=== PATIENT | male | born 1960 | race Caucasian/White ===

== ENCOUNTER 2016-09-03 16:56 | Emergency (ER) | payer OTHER ==
[2016-09-03] MEDS ORDERED: SODIUM CHLORIDE 0.9% 1,000 ML IV STA (18:25)
--- NOTE | 2016-09-03 18:30 | ED ---
Dizziness HPI - General Chief Complaint: Dizziness Stated Complaint: Dizziness/Vomiting Time Seen by Provider: 09/03/16 17:34 Source: patient, RN notes reviewed Mode of arrival: ambulatory Limitations: no limitations - History of Present Illness Initial Comments: Patient is a 56-year-old male presents to the emergency room for evaluation of dizziness. Patient states for the past week he's been having random episodes of dizziness. Patient states out of no where he will begin feeling very dizzy and feels like the room spinning around him. Patient states the episode will last about 5-6 minutes. Patient states he will become very diaphoretic and then vomit. Patient states after he vomits his symptoms subside. Patient states he's had about 4 episodes throughout the week. Patient states he had one episode earlier today. Patient denies chest pain, shortness of breath, headache. Patient denies ear pain or changes in hearing. Patient denies changes in vision. Patient denies history of diabetes. Patient denies taking any medications. Patient does admit he has a history of hepatitis C from alcohol abuse. Patient states he hasn't had alcohol in 4 years. Patient does admit that he smokes daily and is currently trying to quit. Patient denies any current dizziness. Patient denies any current symptoms. - Related Data Home Medications Medication Instructions Recorded Confirmed Ibuprofen [Motrin] 800 mg PO DAILY PRN 09/03/16 09/03/16 Joint Supplement Unknown 1 tab PO TID 09/03/16 09/03/16 Allergies Allergy/AdvReac Type Severity Reaction Status Date / Time No Known Allergies Allergy Verified 09/03/16 19:04 Review of Systems ROS Statement: Those systems with pertinent positive or pertinent negative responses have been documented in the HPI. ROS Other: All systems not noted in ROS Statement are negative. 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 Limitations: no limitations General appearance: alert, in no apparent distress Head exam: Present: atraumatic, normocephalic, normal inspection Eye exam: Present: normal appearance, PERRL, EOMI Pupils: Present: normal accommodation ENT exam: Present: normal exam, mucous membranes moist, TM's normal bilaterally , normal external ear exam Neck exam: Present: normal inspection Respiratory exam: Present: normal lung sounds bilaterally. Absent: respiratory distress Cardiovascular Exam: Present: regular rate, normal rhythm, normal heart sounds Extremities exam: Present: normal inspection Back exam: Present: normal inspection Neurological exam: Present: alert, oriented X3, CN II-XII intact, normal gait Psychiatric exam: Present: normal affect, normal mood Skin exam: Present: warm, dry, intact, normal color. Absent: rash Course Vital Signs 09/03/16 09/03/16 09/03/16 17:18 18:21 18:59 Temperature 97.8 F 97.7 F Pulse Rate 70 62 Pulse Rate [ 61 Sitting] Pulse Rate [ 68 Standing] Pulse Rate [ 59 L Supine] Respiratory 18 18 Rate Blood Pressure 120/90 165/80 Blood Pressure 146/97 [Sitting] Blood Pressure 154/84 [Standing] Blood Pressure 156/88 [Supine] O2 Sat by Pulse 98 98 Oximetry 09/03/16 09/03/16 19:48 20:15 Temperature 98.1 F 98.0 F Pulse Rate 64 65 Pulse Rate [ Sitting] Pulse Rate [ Standing] Pulse Rate [ Supine] Respiratory 16 18 Rate Blood Pressure 163/93 155/87 Blood Pressure [Sitting] Blood Pressure [Standing] Blood Pressure [Supine] O2 Sat by Pulse 96 95 Oximetry EKG Findings - EKG Comments: EKG Findings:: Sinus bradycardia, ventricular rate 58 bpm, MN interval 178 ms, QRS duration 80 ms, QT/QTC 406/398 ms Medical Decision Making - Medical Decision Making Patient is a 56-year-old male presents emergency room for evaluation of dizziness. Patient states been having episodes of dizziness that the week. Patient had no episodes while he was here. Patient is asymptomatic. Patient's EKG significant for sinus bradycardia. Patient's dizziness could be from symptomatic bradycardia. Advised patient to not operate any heavy machinery or strenuous physical activity. Advised patient to follow-up with his primary care provider for further evaluation. Patient states he understands everything that was discussed with him. Return parameters discussed. Case discussed with Dr. Gonzalez. - Lab Data Result diagrams: 09/03/16 18:55 09/03/16 18:55 Lab Results 09/03/16 09/03/16 09/03/16 Range/Units 18:55 18:55 18:55 WBC 7.5 (3.8-10.6) k/uL RBC 4.71 (4.30-5.90) m/uL Hgb 15.2 (13.0-17.5) gm/dL Hct 45.4 (39.0-53.0) % MCV 96.5 (80.0-100.0) fL MCH 32.3 (25.0-35.0) pg MCHC 33.5 (31.0-37.0) g/dL RDW 12.9 (11.5-15.5) % Plt Count 217 (150-450) k/uL Neutrophils % 52 % Lymphocytes % 35 % Monocytes % 7 % Eosinophils % 2 % Basophils % 1 % Neutrophils # 3.9 (1.3-7.7) k/uL Lymphocytes # 2.7 (1.0-4.8) k/uL Monocytes # 0.5 (0-1.0) k/uL Eosinophils # 0.1 (0-0.7) k/uL Basophils # 0.1 (0-0.2) k/uL PT (9.0-12.0) sec INR (<1.1) Sodium 139 (137-145) mmol/L Potassium 4.4 (3.5-5.1) mmol/L Chloride 105 (98-107) mmol/L Carbon Dioxide 26 (22-30) mmol/L Anion Gap 8 mmol/L BUN 17 (9-20) mg/dL Creatinine 1.00 (0.66-1.25) mg/dL Est GFR (MDRD) Af Amer >60 (>60 ml/min/1.73 sqM) Est GFR (MDRD) Non-Af >60 (>60 ml/min/1.73 sqM) Glucose 91 (74-99) mg/dL POC Glucose (mg/dL) (75-99) mg/dL POC Glu [employer]uing [employer] Dean ID Calcium 9.4 (8.4-10.2) mg/dL Total Bilirubin 0.6 (0.2-1.3) mg/dL AST 25 (17-59) U/L ALT 30 (21-72) U/L Alkaline Phosphatase 54 (38-126) U/L Total Creatine Kinase 133 (55-170) U/L CK-MB (CK-2) 1.0 (0.0-2.4) ng/mL CK-MB (CK-2) Rel Index 0.8 Troponin I <0.012 (0.000-0.034) ng/mL Total Protein 7.7 (6.3-8.2) g/dL Albumin 4.3 (3.5-5.0) g/dL 09/03/16 09/03/16 Range/Units 18:55 18:55 WBC (3.8-10.6) k/uL RBC (4.30-5.90) m/uL Hgb (13.0-17.5) gm/dL Hct (39.0-53.0) % MCV (80.0-100.0) fL MCH (25.0-35.0) pg MCHC (31.0-37.0) g/dL RDW (11.5-15.5) % Plt Count (150-450) k/uL Neutrophils % % Lymphocytes % % Monocytes % % Eosinophils % % Basophils % % Neutrophils # (1.3-7.7) k/uL Lymphocytes # (1.0-4.8) k/uL Monocytes # (0-1.0) k/uL Eosinophils # (0-0.7) k/uL Basophils # (0-0.2) k/uL PT 10.9 (9.0-12.0) sec INR 1.1 (<1.1) Sodium (137-145) mmol/L Potassium (3.5-5.1) mmol/L Chloride (98-107) mmol/L Carbon Dioxide (22-30) mmol/L Anion Gap mmol/L BUN (9-20) mg/dL Creatinine (0.66-1.25) mg/dL Est GFR (MDRD) Af Amer (>60 ml/min/1.73 sqM) Est GFR (MDRD) Non-Af (>60 ml/min/1.73 sqM) Glucose (74-99) mg/dL POC Glucose (mg/dL) 89 (75-99) mg/dL POC Glu [employer] Dean ID Kristy Tamayo Calcium (8.4-10.2) mg/dL Total Bilirubin (0.2-1.3) mg/dL AST (17-59) U/L ALT (21-72) U/L Alkaline Phosphatase (38-126) U/L Total Creatine Kinase (55-170) U/L CK-MB (CK-2) (0.0-2.4) ng/mL CK-MB (CK-2) Rel Index Troponin I (0.000-0.034) ng/mL Total Protein (6.3-8.2) g/dL Albumin (3.5-5.0) g/dL Disposition Clinical Impression: Dizziness Disposition: HOME SELF-CARE Condition: Good Instructions: Dizziness (ED) Additional Instructions: Please follow up with primary care provider for further evaluation in 24-48 hours. No heavy lifting or strenuous physical activity until further evaluated. If any new symptom arises or symptoms worsen, return to ER as soon as possible. Referrals: Cristopher Munoz MD [Primary Care Provider] - 1-2 days Time of Disposition: 20:03
[2016-09-03 19:00] LABS: Glucose,Whole Blood 89 mg/dL (75-99)
[2016-09-03 19:09] LABS: Basophils # (A) 0.1 k/uL (0-0.2); Basophils % (A) 1 %; CH 32.8; CHCM 34.2; Eosinophils # (A) 0.1 k/uL (0-0.7); Eosinophils % (A) 2 %; HCT 45.4 % (39.0-53.0); HDW 2.56; HGB 15.2 gm/dL (13.0-17.5); Luc # (Auto) 0.25; Luc % (Auto) 3; Lymphocytes # (A) 2.7 k/uL (1.0-4.8); Lymphocytes % (A) 35 %; MCH 32.3 pg (25.0-35.0); MCHC 33.5 g/dL (31.0-37.0); MCV 96.5 fL (80.0-100.0); Mean Platelet Volume 7.2; Monocytes # (A) 0.5 k/uL (0-1.0); Monocytes % (A) 7 %; Neutrophils # (A) 3.9 k/uL (1.3-7.7); Neutrophils % (A) 52 %; RBC 4.71 m/uL (4.30-5.90); RDW 12.9 % (11.5-15.5); WBC 7.5 k/uL (3.8-10.6); WBC (Perox) 7.38
[2016-09-03 19:14] LABS: INR 1.1 (<1.1); Prothrombin Time 10.9 sec (9.0-12.0)
[2016-09-03 19:22] LABS: ALT 30 U/L (21-72); AST 25 U/L (17-59); Alkaline Phosphatase 54 U/L (38-126); Anion Gap 8 mmol/L; Blood Urea Nitrogen 17 mg/dL (9-20); Calcium 9.4 mg/dL (8.4-10.2); Carbon Dioxide 26 mmol/L (22-30); Chloride 105 mmol/L (98-107); Glucose 91 mg/dL (74-99); Non-African American GFR(MDRD) >60 (>60 ml/min/1.73 sqM); Potassium 4.4 mmol/L (3.5-5.1); Sodium 139 mmol/L (137-145); Total Bilirubin 0.6 mg/dL (0.2-1.3); Total Protein 7.7 g/dL (6.3-8.2)
[2016-09-03 19:38] LABS: Creatine Kinase 133 U/L (55-170)
[2016-09-03 19:51] LABS: Troponin I <0.012 ng/mL (0.000-0.034)
[2016-09-03 20:17] VITALS: BP 155/87; PULSE 65; RESP 18; TEMP 98
== END 2016-09-03 20:16 | disposition home or self-care (01) ==
LOC: EC 16:56
DX: R42 Dizziness and giddiness (principal); F17.200 Nicotine dependence, unspecified, uncomplicated
CPT/HCPCS: 36415; 80053; 82550; 82553; 84484; 85025; 85610; 93005; 96360; 99284

== ENCOUNTER → 2016-10-03 | Outpatient (CLI) | payer OTHER ==
--- NOTE | 2016-10-03 10:58 | CT ---
EXAMINATION TYPE: CT brain wo con DATE OF EXAM: 10/03/2016 HISTORY: Dizziness and seizures CT DLP: 1121 mGycm. Automated Exposure Control for Dose Reduction was Utilized. TECHNIQUE: CT scan of the head is performed without contrast. COMPARISON: None. FINDINGS: There is no acute intracranial hemorrhage or midline shift identified. Ventricles and sul ci are felt within normal limits. Garcia-white matter differentiation is maintained. The globes are int act and the visualized sinuses are clear. Soft tissue density bilateral external auditory canals is felt to reflect cerumen. Vascular calcification distal internal carotid arteries is present bilatera lly. IMPRESSION: No acute intracranial hemorrhage or midline shift. Unremarkable study.
--- NOTE | 2016-10-07 08:03 | EEG ---
DATE OF SERVICE: 10/03/2016 REASON FOR TESTING: Dizziness with a remote history of seizures. AGE: 56Y CURRENT ANTIEPILEPTIC MEDICATIONS: None. DESCRIPTION OF THE PROCEDURE: This EEG was performed using a 21-channel digital electroencephalograph, following the international 10 to 20 system. DESCRIPTION OF THE RECORDING: From the beginning of the tracing, and with the patient's eyes closed, the background rhythm was mostly consisting of 9 Hz alpha frequency in the posterior occipital leads. No obvious asymmetry is seen. Photic stimulation was performed with a minimal driving response seen. No pathological waves were elicited. Hyperventilation was not performed. Occasional movement artifacts and rare lead artifacts are seen. No epileptiform discharges were seen. The patient remains awake throughout the tracing. His EKG lead showed a regular rate and rhythm. INTERPRETATION: This awake EEG can be considered within normal limits. There was no asymmetry seen. No epileptiform discharges were noticed. The absence of epileptiform discharges does not rule out the diagnosis of epilepsy, therefore, clinical correlation is recommended. Thank you, Dr. Munoz for allowing me to participate in the care of your patient. If you have any questions, please feel free to contact me.
== END | disposition home or self-care (01) ==
LOC: NEUROMAIN 09:30
PROVIDERS: ATTEND Family Medicine
DX: R42 Dizziness and giddiness (principal); R56.9 Unspecified convulsions
CPT/HCPCS: 70450; 95819

== ENCOUNTER 2016-12-31 20:21 | Emergency (ER) | payer OTHER ==
--- NOTE | 2016-12-31 20:30 | ED ---
Lower Extremity Injury HPI - General Stated Complaint: ankle injury Time Seen by Provider: 12/31/16 20:26 Source: patient, RN notes reviewed Mode of arrival: wheelchair Limitations: no limitations - History of Present Illness Initial Comments: This a 56-year-old male presents emergency Department chief complaint left ankle injury. Patient states his walking stepped in a hole and twisted his ankle. Patient states she has moderate amount of swelling to the lateral portion of his ankle. He states is unable bear weight secondary to pain. Denies any proximal tib-fib pain or foot tenderness. He states he does have an orthopedic doctor with [facility]. He's had no prior left ankle injuries. Denies any paresthesias. Denies any other muscle skeletal injury no head injury no LOC. - Related Data Home Medications Medication Instructions Recorded Confirmed Ibuprofen [Motrin] 800 mg PO DAILY PRN 09/03/16 09/03/16 Joint Supplement Unknown 1 tab PO TID 09/03/16 09/03/16 Previous Rx's Medication Instructions Recorded Hydrocodone/Acetaminophen [[place] 1 tab PO Q6HR PRN #20 tab 12/31/16 5-325] Allergies Allergy/AdvReac Type Severity Reaction Status Date / Time No Known Allergies Allergy Verified 09/03/16 19:04 Review of Systems ROS Statement: Those systems with pertinent positive or pertinent negative responses have been documented in the HPI. ROS Other: All systems not noted in ROS Statement are negative. 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 Absent: respiratory distress, wheezes, rales, rhonchi, stridor Cardiovascular Exam: Present: regular rate, normal rhythm, normal heart sounds. Absent: systolic murmur, diastolic murmur, rubs, gallop, clicks Extremities exam: Present: other (Left ankle there is moderate to large amount of swelling noted to the lateral malleolus with severe tenderness palpation there is minimal medial malleolus tenderness there is no proximal tib-fib tenderness there is no tenderness to the left foot foot is neurovascular intact with cap refill less than 2 seconds.) Course Vital Signs 12/31/16 20:28 Temperature 98.6 F Pulse Rate 92 Respiratory 18 Rate Blood Pressure 143/92 O2 Sat by Pulse 98 Oximetry Procedures - Orthopedic Splinting/Casting Injury #1 Side: left Lower Extremity Injury Location: ankle Lower Extremity Immobilizer: posterior splint (Short leg neurovascular intact before and after procedure) Other Orthopedic Equipment: crutches Medical Decision Making - Medical Decision Making 56-year-old male presented for left ankle injury. There is a possible avulsion fracture. Patient is swollen and tender and which treated as fracture at this time. Patient was splinted and given prescription for crutches facial follow- up with orthopedics. Disposition Clinical Impression: Closed left ankle fracture Disposition: HOME SELF-CARE Condition: Stable Instructions: Ankle Fracture (ED) Additional Instructions: Please return to the Emergency Department if symptoms worsen or any other concerns. Prescriptions: Hydrocodone/Acetaminophen [[place] 5-325] 1 tab PO Q6HR PRN #20 tab PRN Reason: Pain Referrals: Cristopher Munoz MD [Primary Care Provider] - 1-2 days Bruce Kevin MD [STAFF PHYSICIAN] - 1-2 days Time of Disposition: 20:56
[2016-12-31 20:32] VITALS: BP 143/92; PULSE 92; RESP 18; TEMP 98.6
--- NOTE | 2016-12-31 20:47 | XR ---
EXAMINATION TYPE: XR ankle complete LT DATE OF EXAM: 12/31/2016 COMPARISON: NONE HISTORY: Pain TECHNIQUE: 3 views of the left ankle are submitted for evaluation. FINDINGS: Moderate soft tissue swelling anterior ankle and laterally. Tiny ossific densities adjacent to the medial malleolus and lateral malleolar tips could reflect avulsion fractures. On the lateral projection there are well-corticated ossific densities adjacent to the talus and navicular. Ankle mor tise is intact. IMPRESSION: 1. Soft tissue swelling is noted. Small ossific densities could reflect avulsion fractures.
[2016-12-31] MEDS ORDERED: HYDROcodone/APAP 5-325MG 1 EACH TAB PO STA (20:55)
== END 2016-12-31 21:06 | disposition home or self-care (01) ==
LOC: EC 20:21
DX: S82.892A Other fracture of left lower leg, initial encounter for closed fracture (principal); M19.90 Unspecified osteoarthritis, unspecified site; F17.200 Nicotine dependence, unspecified, uncomplicated; Z98.890 Other specified postprocedural states; Z79.899 Other long term (current) drug therapy; X50.1XXA Overexertion from prolonged static or awkward postures, initial encounter; Y93.01 Activity, walking, marching and hiking
CPT/HCPCS: 29515; 99283

== ENCOUNTER → 2017-03-10 | Outpatient (CLI) | payer OTHER | LOC: CPPFTMAIN 09:59 | PROVIDERS: ATTEND Family Medicine | DX: J44.1 Chronic obstructive pulmonary disease with (acute) exacerbation (principal); R94.2 Abnormal results of pulmonary function studies | CPT/HCPCS: 94060; 94726; 94729 ==

== ENCOUNTER 2018-02-24 12:39 | Emergency (ER) | payer OTHER ==
[2018-02-24 12:44] VITALS: BP 136/85; PULSE 82; RESP 20; TEMP 98.1
--- NOTE | 2018-02-24 13:03 | ED ---
General Adult HPI - General Chief complaint: Extremity Injury, Lower Stated complaint: Ankle Injury Time Seen by Provider: 02/24/18 12:59 Source: patient, RN notes reviewed Mode of arrival: wheelchair Limitations: no limitations - History of Present Illness Initial comments: Patient's a 57-year-old male presents to the emergency room today with chief complaint of injury to the right ankle that occurred yesterday. He states he was STEPS and slipped hitting his right ankle on one of the metal steps. He states that it was a little sore yesterday but worse today. States having pain with ambulation. Patient is pain to the medial aspect. He denies any other injury or trauma. Patient denies any recent fever, chills, shortness of breath, chest pain, back pain, abdominal pain, nausea or vomiting, numbness or tingling , headaches or visual changes, or any other complaints. - Related Data Home Medications Medication Instructions Recorded Confirmed Clarithromycin [Biaxin] 500 mg PO Q12HR 02/01/17 02/01/17 Codeine Phosphate/Guaifenesin 10 ml PO Q6HR PRN 02/01/17 02/01/17 [Cheratussin AC Syrup] Ibuprofen [Motrin] 600 mg PO Q6HR PRN 02/01/17 02/01/17 Previous Rx's Medication Instructions Recorded Albuterol Inhaler [Ventolin Hfa 1 - 2 puff INHALATION Q6HR PRN #1 02/01/17 Inhaler] inhaler Ipratropium-Albuterol Nebulize 3 ml INHALATION BID #30 neb 02/01/17 [Duoneb 0.5 mg-3 mg/3 ml Soln] predniSONE 50 mg PO DAILY #7 tablet 02/01/17 Allergies Allergy/AdvReac Type Severity Reaction Status Date / Time No Known Allergies Allergy Verified 02/24/18 12:41 Review of Systems ROS Statement: Those systems with pertinent positive or pertinent negative responses have been documented in the HPI. ROS Other: All systems not noted in ROS Statement are negative. 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 Neck: The neck is supple, there is no tenderness or JVD. Musculoskeletal: Patient does have some moderate swelling of the medial aspect. There is mild tenderness over the medial malleolus. No tenderness down to the foot. No tenderness to the right knee. Sensation intact. Dorsal pedal pulse 2+. Neurological: A&O x 3. CN II-XII intact, There are no obvious motor or sensory deficits. Coordination appears grossly intact. Speech is normal. Skin: Skin is warm and dry and no rashes or lesions are noted. Psychiatric: Normal mood and affect. Limitations: no limitations Course Vital Signs 02/24/18 12:41 Temperature 98.1 F Pulse Rate 82 Respiratory 20 Rate Blood Pressure 136/85 O2 Sat by Pulse 97 Oximetry Medical Decision Making - Medical Decision Making X-ray negative for any acute abnormality. Results were discussed with patient. Patient advised continued ice elevate the affected area. Follow-up in 7-10 days for repeat x-rays if symptoms persist. Disposition Clinical Impression: Ankle contusion Disposition: HOME SELF-CARE Condition: Good Instructions: Foot Contusion (ED) Additional Instructions: Please continue to ice elevate the affected area at least 4 times a day for 20 minutes at a time. Please use Tylenol/ibuprofen for pain. Please follow-up in 7-10 days for repeat x-rays if symptoms persist. Please return to emergency room for any other concerns. Is patient prescribed a controlled substance at d/c from ED?: No Referrals: Cristopher Munoz MD [Primary Care Provider] - 1-2 days Time of Disposition: 13:36
--- NOTE | 2018-02-24 13:28 | XR ---
Right ankle HISTORY: Trauma and pain 3 views of the right ankle There is soft tissue swelling present. Bone mineralization may be slightly reduced. Alignment and coco nt space maintained. IMPRESSION: No fracture or dislocation.
== END 2018-02-24 13:43 | disposition home or self-care (01) ==
LOC: EC 12:39
DX: S90.01XA Contusion of right ankle, initial encounter (principal); M19.90 Unspecified osteoarthritis, unspecified site; F17.200 Nicotine dependence, unspecified, uncomplicated; Z98.890 Other specified postprocedural states; W18.43XA Slipping, tripping and stumbling without falling due to stepping from one level to another, initial encounter; W22.8XXA Striking against or struck by other objects, initial encounter
CPT/HCPCS: 99283

== ENCOUNTER → 2018-03-09 | Outpatient (CLI) | payer OTHER ==
--- NOTE | 2018-03-09 10:38 | XR ---
EXAMINATION TYPE: XR ankle complete RT DATE OF EXAM: 03/09/2018 CLINICAL HISTORY: Right ankle pain after injury 2 weeks prior TECHNIQUE: Frontal, lateral and oblique images of the right ankle are obtained. COMPARISON: 02/24/2018 FINDINGS: There is circumferential soft tissue swelling over the right ankle joint, increased from th e prior. There is no acute fracture/dislocation evident in the right ankle. The ankle mortise appear s within normal limits. The overlying soft tissue appears unremarkable. IMPRESSION: Increased right ankle soft tissue swelling without evidence of acute fracture or dislocat ion of the right ankle. Soft tissue injury or occult fracture can be evaluated with MRI.
== END | disposition home or self-care (01) ==
LOC: RADXRMAIN 08:40
PROVIDERS: ATTEND Family Medicine
DX: M79.89 Other specified soft tissue disorders (principal); M25.571 Pain in right ankle and joints of right foot

== ENCOUNTER → 2018-08-20 | Outpatient (CLI) | payer OTHER ==
--- NOTE | 2018-08-20 14:19 | XR ---
EXAMINATION TYPE: XR cervical spine comp DATE OF EXAM: 08/20/2018 CLINICAL HISTORY: pain COMPARISON: NONE TECHNIQUE: Frontal, lateral, oblique, swimmers, and open mouth view of the cervical spine are obtaine d. FINDINGS: The cervical spine is visualized in its entirety from C1 thru the top of T1 level. It is s atisfactory in alignment without evidence of acute fracture or dislocation. The pre-vertebral soft t issue appears within normal limits. Moderate degenerative disc space narrowing at C3-4 through C6-7 w ith ventral and dorsal spondylosis. Mild foraminal encroachment identified at C3-4 and C6-7. The C1-C 2 articulation is unremarkable on the open mouth view. IMPRESSION: No acute fracture or dislocation is seen in the cervical spine.ICD 10 NO FRACTURE, INITI AL EVALUATION
--- NOTE | 2018-08-20 16:17 | XR ---
EXAMINATION TYPE: XR thoracic spine complete DATE OF EXAM: 08/20/2018 CLINICAL HISTORY: pain TECHNIQUE: Frontal, lateral, and swimmer's view of thoracic spine are obtained. COMPARISON: None. FINDINGS: Thoracic spine show satisfactory alignment without evidence of acute fracture or dislocatio n. Vertebral body heights are preserved. Mild scattered degenerative disc space narrowing and minima l spondylosis. Visualized ribs are unremarkable. IMPRESSION: No acute fracture or dislocation is seen in the thoracic spine. ICD 10 NO FRACTURE, INIT IAL EVALUATION
== END | disposition home or self-care (01) ==
LOC: RADXRMAIN 12:42
PROVIDERS: ATTEND Family Medicine
DX: I69.959 Hemiplegia and hemiparesis following unspecified cerebrovascular disease affecting unspecified side (principal); R20.2 Paresthesia of skin
CPT/HCPCS: 72050; 72072

== ENCOUNTER 2018-09-28 13:40 | Emergency (ER) | payer OTHER ==
[2018-09-28] MEDS ORDERED: FAMOTIDINE 20 MG/2 ML VIAL IV STA (14:08)
[2018-09-28] MEDS ORDERED: HYDROmorphone 0.5 MG/0.5 ML SYRINGE IVP STA (14:08)
[2018-09-28] MEDS ORDERED: SODIUM CHLORIDE 0.9% 500 ML 500 ML IV STA (14:08)
[2018-09-28 14:10] VITALS: TEMP 97.7
--- NOTE | 2018-09-28 14:10 | ED ---
General Adult HPI - General Chief complaint: Abdominal Pain Stated complaint: abdominal pain Time Seen by Provider: 09/28/18 13:50 Source: patient, RN notes reviewed Mode of arrival: ambulatory Limitations: no limitations - History of Present Illness Initial comments: 58-year-old male with a past medical history of hepatitis C presents to the emergency department for a chief complaint of upper abdominal pain times one day. Patient states the pain is a sharp pain in the right upper abdomen. CT does have a history of hepatitis C. Denies any previous gallbladder surgery. Denies any nausea or vomiting. Denies any fevers or chills. Denies any lower abdominal pain.Patient has no other complaints at this time including shortness of breath, chest pain, abdominal pain, nausea or vomiting, headache, or visual changes. - Related Data Home Medications Medication Instructions Recorded Confirmed Albuterol Inhaler [Ventolin Hfa 1 - 2 puff INHALATION RT-Q6H PRN 09/28/18 09/28/18 Inhaler] Aspirin EC [Ecotrin Low Dose] 81 mg PO DAILY 09/28/18 09/28/18 Fluticasone/Salmeterol [Airduo 1 puff INHALATION RT-DAILY 09/28/18 09/28/18 Respiclick 113-14 Mcg] Lisinopril [Zestril] 5 mg PO DAILY 09/28/18 09/28/18 Meloxicam [Mobic] 7.5 mg PO BID 09/28/18 09/28/18 Montelukast [Singulair] 10 mg PO HS 09/28/18 09/28/18 Ranitidine HCl [Zantac] 75 mg PO DAILY 09/28/18 09/28/18 Umeclidinium [place] [Incruse 1 puff INHALATION RT-HS 09/28/18 09/28/18 Ellipta] Allergies Allergy/AdvReac Type Severity Reaction Status Date / Time No Known Allergies Allergy Verified 09/28/18 13:58 Review of Systems ROS Statement: Those systems with pertinent positive or pertinent negative responses have been documented in the HPI. ROS Other: All systems not noted in ROS Statement are negative. Past Medical History Additional Past Medical History / Comment(s): arthristis, Hepatitis C History of Any Multi-Drug Resistant Organisms: None Reported Past Surgical History: Orthopedic Surgery Additional Past Surgical History / Comment(s): right hand Past Psychological History: No Psychological Hx Reported Smoking Status: Current every day smoker Past Alcohol Use History: Abuse Past Drug Use History: None Reported General Exam Limitations: no limitations General appearance: alert, in no apparent distress Head exam: Present: atraumatic, normocephalic, normal inspection Eye exam: Present: normal appearance, PERRL, EOMI. Absent: scleral icterus, conjunctival injection, periorbital swelling ENT exam: Present: normal exam, mucous membranes moist Neck exam: Present: normal inspection, full ROM. Absent: tenderness, meningismus, lymphadenopathy Respiratory exam: Present: normal lung sounds bilaterally. Absent: respiratory distress, wheezes, rales, rhonchi, stridor Cardiovascular Exam: Present: regular rate, normal rhythm, normal heart sounds. Absent: systolic murmur, diastolic murmur, rubs, gallop, clicks GI/Abdominal exam: Present: soft, tenderness (tenderness in the epigastric and RUQ areas), normal bowel sounds. Absent: distended, guarding, rebound, rigid Expanded GI/Abdominal exam: Present: Dillon's sign. Absent: psoas sign, obturator sign, heel tap sign, Rovsing's sign, tenderness at McBurney's Point, ascites Course Vital Signs 09/28/18 09/28/18 13:42 16:32 Temperature 97.7 F Pulse Rate 68 54 L Respiratory 18 16 Rate Blood Pressure 111/67 139/85 O2 Sat by Pulse 98 97 Oximetry Medical Decision Making - Medical Decision Making 58-year-old with epigastric and right upper quadrant pain 2 days. Started yesterday and continued today. Exam does show epigastric and right upper melisa drant tenderness. No right lower quadrant tenderness. Negative obturator sign. No McBurney point tenderness. No CVA tenderness. CBC CMP unremarkable. Urine negative. Amylase and lipase within normal limits. Ultrasound of the gallbladder showed a limited evaluation of the pancreas and liver. No evidence of acute cholecystitis. X-ray of the abdomen is negative for pneumoperitoneum. Vitals are stable. Patient was given Pepcid and pain medication, actually had complete resolution of symptoms. Requesting discharge. Discussed possibility of gastritis versus ulcer versus gallbladder dysfunction. Discussed following up with primary care in 1-2 days. Discussed following up with GI as well. Patient is already on famotidine. Will return here for has any worsening symptoms. - Lab Data Result diagrams: 09/28/18 14:10 09/28/18 14:10 Lab Results 09/28/18 09/28/18 09/28/18 Range/Units 14:10 14:10 14:10 WBC 5.8 (3.8-10.6) k/uL RBC 4.88 (4.30-5.90) m/uL Hgb 14.8 (13.0-17.5) gm/dL Hct 46.3 (39.0-53.0) % MCV 94.9 (80.0-100.0) fL MCH 30.4 (25.0-35.0) pg MCHC 32.0 (31.0-37.0) g/dL RDW 12.6 (11.5-15.5) % Plt Count 206 (150-450) k/uL Neutrophils % 57 % Lymphocytes % 32 % Monocytes % 7 % Eosinophils % 2 % Basophils % 0 % Neutrophils # 3.3 (1.3-7.7) k/uL Lymphocytes # 1.9 (1.0-4.8) k/uL Monocytes # 0.4 (0-1.0) k/uL Eosinophils # 0.1 (0-0.7) k/uL Basophils # 0.0 (0-0.2) k/uL Sodium 141 (137-145) mmol/L Potassium 4.2 (3.5-5.1) mmol/L Chloride 107 (98-107) mmol/L Carbon Dioxide 28 (22-30) mmol/L Anion Gap 6 mmol/L BUN 16 (9-20) mg/dL Creatinine 0.96 (0.66-1.25) mg/dL Est GFR (CKD-EPI)AfAm >90 (>60 ml/min/1.73 sqM) Est GFR (CKD-EPI)NonAf 87 (>60 ml/min/1.73 sqM) Glucose 85 (74-99) mg/dL Calcium 9.4 (8.4-10.2) mg/dL Total Bilirubin 0.7 (0.2-1.3) mg/dL AST 24 (17-59) U/L ALT 27 (21-72) U/L Alkaline Phosphatase 61 (38-126) U/L Total Protein 7.4 (6.3-8.2) g/dL Albumin 4.5 (3.5-5.0) g/dL Amylase 85 (30-110) U/L Lipase 60 (23-300) U/L Urine Color Light Yellow Urine Appearance Clear (Clear) Urine pH 6.5 (5.0-8.0) Ur Specific [place] 1.011 (1.001-1.035) Urine Protein Negative (Negative) Urine Glucose (UA) Negative (Negative) Urine Ketones Negative (Negative) Urine Blood Negative (Negative) Urine Nitrite Negative (Negative) Urine Bilirubin Negative (Negative) Urine Urobilinogen <2.0 (<2.0) mg/dL Ur Leukocyte Esterase Negative (Negative) Disposition Clinical Impression: Upper abdominal pain Disposition: HOME SELF-CARE Condition: Good Instructions (If sedation given, give patient instructions): Abdominal Pain (ED), Epigastric Pain (ED) Additional Instructions: Please follow-up with your GI specialist in 1-2 days. Please return here to the emergency department if you have any worsening symptoms. Is patient prescribed a controlled substance at d/c from ED?: No Referrals: Cristopher Munoz MD [Primary Care Provider] - 1-2 days Tyler Pérez MD [STAFF PHYSICIAN] - 1-2 days Time of Disposition: 18:27
[2018-09-28 14:34] LABS: Basophils % (A) 0 %; Eosinophils # (A) 0.1 k/uL (0-0.7); Eosinophils % (A) 2 %; HCT 46.3 % (39.0-53.0); HGB 14.8 gm/dL (13.0-17.5); Lymphocytes # (A) 1.9 k/uL (1.0-4.8); Lymphocytes % (A) 32 %; MCH 30.4 pg (25.0-35.0); MCV 94.9 fL (80.0-100.0); Mean Platelet Volume 7.9; Monocytes # (A) 0.4 k/uL (0-1.0); Monocytes % (A) 7 %; Neutrophils # (A) 3.3 k/uL (1.3-7.7); Neutrophils % (A) 57 %; Platelet Count 206 k/uL (150-450); RBC 4.88 m/uL (4.30-5.90); RDW 12.6 % (11.5-15.5); WBC 5.8 k/uL (3.8-10.6)
[2018-09-28 14:36] LABS: Appearance,Urine Clear (Clear); Bilirubin,Urine Negative (Negative); Blood,Urine Negative (Negative); Color,Urine Light Yellow; Glucose,Urine (UA) Negative (Negative); Ketones,Urine Negative (Negative); Leukocyte Esterase,Urine Negative (Negative); Nitrite,Urine Negative (Negative); PH, Urine 6.5 (5.0-8.0); Protein,Urine Negative (Negative); Specific Gravity,Urine 1.011 (1.001-1.035); Urobilinogen,Urine <2.0 mg/dL (<2.0)
[2018-09-28 14:49] LABS: ALT 27 U/L (21-72); AST 24 U/L (17-59); Albumin 4.5 g/dL (3.5-5.0); Alkaline Phosphatase 61 U/L (38-126); Amylase 85 U/L (30-110); Anion Gap 6 mmol/L; Blood Urea Nitrogen 16 mg/dL (9-20); Calcium 9.4 mg/dL (8.4-10.2); Carbon Dioxide 28 mmol/L (22-30); Chloride 107 mmol/L (98-107); Glucose 85 mg/dL (74-99); Lipase 60 U/L (23-300); Potassium 4.2 mmol/L (3.5-5.1); Sodium 141 mmol/L (137-145); Total Bilirubin 0.7 mg/dL (0.2-1.3); Total Protein 7.4 g/dL (6.3-8.2)
--- NOTE | 2018-09-28 16:31 | US ---
EXAMINATION TYPE: US gallbladder DATE OF EXAM: 09/28/2018 COMPARISON: US CLINICAL HISTORY: RUQ PAIN. EXAM MEASUREMENTS: Liver Length: 14.7 cm Gallbladder Wall: 0.2 cm CBD: 0.3 cm Right Kidney: 11.9 x 5.9 x 6.2 cm Technically difficult study due to extensive midline bowel gas. Pancreas: limited visualization due to midline bowel gas Liver: limited visualization limited to intercostal window Gallbladder: No stones seen Evidence for sonographic Dillon's sign: no CBD: wnl Right Kidney: No hydronephrosis or masses seen IMPRESSION: There is limited evaluation of both the pancreas and the liver however there is no eviden ce of cholelithiasis nor acute cholecystitis. The visualized portions of the pancreas is somewhat het erogenous and could be artifactual or relate to pancreatitis. Correlate with serum laboratory values.
[2018-09-28 16:33] VITALS: RESP 16
--- NOTE | 2018-09-28 18:10 | XR ---
EXAMINATION TYPE: XR abdomen 2V DATE OF EXAM: 09/28/2018 COMPARISON: NONE HISTORY: Pain TECHNIQUE: Upright lower abdominal pelvic view, and an abdominal view which appears to be a fragment but this view is not marked. FINDINGS: Visualized lung bases and pleural spaces are negative for definite acute findings. The bowel gas pattern is within normal limits. No pneumatosis or pneumoperitoneum. No definite acute skeletal finding. No definite acute soft tissue findings. IMPRESSION: No acute radiographic process.
[2018-09-28 18:36] VITALS: BP 131/90; PULSE 58
== END 2018-09-28 18:36 | disposition home or self-care (01) ==
LOC: EC 13:40
DX: R10.11 Right upper quadrant pain (principal); M19.90 Unspecified osteoarthritis, unspecified site; F17.200 Nicotine dependence, unspecified, uncomplicated; Z79.1 Long term (current) use of non-steroidal anti-inflammatories (NSAID); Z79.51 Long term (current) use of inhaled steroids; Z79.82 Long term (current) use of aspirin; Z79.899 Other long term (current) drug therapy; Z86.19 Personal history of other infectious and parasitic diseases
CPT/HCPCS: 36415; 74019; 76705; 80053; 81003; 82150; 83690; 85025; 99284

== ENCOUNTER 2021-02-15 18:16 | Emergency (ER) | payer OTHER ==
[2021-02-15 18:46] VITALS: RESP 18
[2021-02-15] MEDS ORDERED: HYDROmorphone 1 MG/ML 1 ML SYRINGE IVP STA (18:59)
[2021-02-15] MEDS ORDERED: LIDOCAINE 1% INJ 10MG/ML (20 ML MDV) SQ ONE (19:02)
[2021-02-15] MEDS ORDERED: BUPIVACAINE (PF) 0.25% 30 ML VIAL SQ STA (19:02)
[2021-02-15] MEDS ORDERED: DIPH,PERTUS(ACELL)TETVAC-LF 0.5 ML VIAL IM ONE (19:10)
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
--- NOTE | 2021-02-15 19:23 | XR ---
EXAMINATION TYPE: XR finger LT DATE OF EXAM: 02/15/2021 CLINICAL HISTORY: pain TECHNIQUE: 3 views of the left first digit are submitted. COMPARISON: None FINDINGS: There is soft tissue and osseous amputation of the left first digit at the base of the prox imal phalanx. No radiopaque foreign bodies are noted. IMPRESSION: Partial amputation left first digit.
[2021-02-15 21:34] VITALS: BP 141/87; PULSE 85; TEMP 98.4
== END 2021-02-15 21:33 | disposition home or self-care (01) ==
LOC: EC 18:16
DX: S68.012A Complete traumatic metacarpophalangeal amputation of left thumb, initial encounter (principal); F17.200 Nicotine dependence, unspecified, uncomplicated; Z79.82 Long term (current) use of aspirin; W26.8XXA Contact with other sharp object(s), not elsewhere classified, initial encounter
CPT/HCPCS: 99284; 96365; 96375; 90471; 64450; 73140; 90715; J0690; J2001; J1170

== ENCOUNTER 2023-05-30 02:38 | Inpatient (IN) | payer OTHER ==
--- NOTE | 2023-05-30 02:49 | ED ---
SOB HPI - General Chief Complaint: Shortness of Breath Stated Complaint: STEMI Time Seen by Provider: 05/30/23 02:43 Source: patient, EMS Mode of arrival: EMS Limitations: no limitations - History of Present Illness Initial Comments: This patient is a 63-year-old man who presents by ambulance to have evaluation for shortness of breath. Patient states that for the past approximately 3 days he has been feeling progressively more short of breath. Tonight it became so severe he was not able to catch his breath and he was breaking into a sweat. Patient denies pain in the chest but states that it does feel tight right in the center. Denies nausea vomiting, palpitations, lightheadedness or syncope. MD Complaint: shortness of breath -: days(s) Severity: mild Quality: other (Right) Consistency: constant Improves With: nothing Worsens With: lying flat Associated Symptoms: denies other symptoms Treatments Prior to Arrival: oxygen, aspirin - Related Data Home Oxygen Therapy: No Home Medications Medication Instructions Recorded Confirmed Albuterol Inhaler [Ventolin Hfa 1 - 2 puff INHALATION RT-Q6H PRN 09/28/18 05/30/23 Inhaler] Aspirin EC [Ecotrin Low Dose] 81 mg PO DAILY 09/28/18 05/30/23 Montelukast [Singulair] 10 mg PO HS 09/28/18 05/30/23 Fluticasone/Umeclidin/Vilanter 1 puff INHALATION RT-DAILY 05/30/23 05/30/23 [Trelegy Ellipta 100-62.5-25] Omeprazole 20 mg PO DAILY 05/30/23 05/30/23 Tiotropium [place] [Spiriva 18 mcg INHALATION RT-DAILY 05/30/23 05/30/23 Handihaler] Previous Rx's Medication Instructions Recorded Amoxic-Pot Clav 875-125Mg 1 each PO Q12HR 7 Days #14 tab 06/05/23 [Augmentin 875-125] Atorvastatin [Lipitor] 80 mg PO HS #30 tab 06/05/23 Furosemide [Lasix] 40 mg PO BID@0900,1600 #60 tab 06/05/23 Losartan [Cozaar] 12.5 mg PO DAILY #30 tab 06/05/23 Metoprolol Tartrate [Lopressor] 12.5 mg PO BID #60 tab 06/05/23 Nicotine 21Mg/24Hr Patch [Habitrol] 1 patch TRANSDERM DAILY patch 06/05/23 Nitroglycerin Sl Tabs [Nitrostat] 0.4 mg SUBLINGUAL Q5M PRN #100 tab 06/05/23 Potassium Chloride ER [K-Dur 20] 20 meq PO DAILY #30 tab 06/05/23 Thiamine [Vitamin B-1] 100 mg PO DAILY tab 06/05/23 Ticagrelor [Brilinta] 90 mg PO BID #60 tab 06/05/23 Allergies Allergy/AdvReac Type Severity Reaction Status Date / Time No Known Allergies Allergy Verified 05/30/23 12:13 Review of Systems ROS Statement: Those systems with pertinent positive or pertinent negative responses have been documented in the HPI. ROS Other: All systems not noted in ROS Statement are negative. Constitutional: Denies: fever, chills, weakness Respiratory: Reports: dyspnea. Denies: cough, wheezes, hemoptysis Cardiovascular: Reports: chest pain, orthopnea. Denies: palpitations, edema, syncope Gastrointestinal: Denies: abdominal pain, nausea, vomiting Genitourinary: Denies: dysuria, hematuria Musculoskeletal: Denies: back pain Skin: Denies: rash Neurological: Denies: headache, weakness, numbness Past Medical History Past Medical History: COPD Additional Past Medical History / Comment(s): arthristis, Hepatitis C History of Any Multi-Drug Resistant Organisms: None Reported Past Surgical History: Orthopedic Surgery Additional Past Surgical History / Comment(s): right hand Past Psychological History: No Psychological Hx Reported Smoking Status: Current every day smoker Past Alcohol Use History: Abuse Past Drug Use History: None Reported - Past Family History Father History Unknown: Yes Family Medical History: Coronary Artery Disease (CAD) Additional Family Medical History / Comment(s): Lupus General Exam Limitations: no limitations General appearance: alert, in distress Head exam: Present: atraumatic, normocephalic Eye exam: Present: normal appearance. Absent: scleral icterus, conjunctival injection ENT exam: Present: normal oropharynx Neck exam: Present: normal inspection Respiratory exam: Present: respiratory distress (Tachypnea), rales (Lower lung field). Absent: wheezes, rhonchi, stridor, chest wall tenderness, accessory muscle use Cardiovascular Exam: Present: normal rhythm, tachycardia, normal heart sounds. Absent: systolic murmur, diastolic murmur, rubs, gallop GI/Abdominal exam: Present: soft. Absent: distended, tenderness, guarding, rebound, rigid, mass Extremities exam: Present: normal inspection, normal capillary refill. Absent: pedal edema, calf tenderness Back exam: Present: normal inspection. Absent: CVA tenderness (R), CVA tenderness (L) Neurological exam: Present: alert Skin exam: Present: warm, dry, intact, normal color. Absent: rash Course Vital Signs 05/30/23 05/30/23 05/30/23 02:40 02:50 02:55 Temperature 98.4 F Pulse Rate 130 H 118 H 116 H Respiratory 30 H 34 H 28 H Rate Blood Pressure 119/93 127/93 125/86 O2 Sat by Pulse 86 L 90 L 90 L Oximetry 05/30/23 05/30/23 03:05 03:13 Temperature Pulse Rate 106 H 99 Respiratory 28 H 20 Rate Blood Pressure 115/85 116/79 O2 Sat by Pulse 91 L 90 L Oximetry Medical Decision Making - Medical Decision Making Patient had chest x-ray which I interpreted as showing cardiomegaly and vascular congestion. No infiltrate or pneumothorax. Was pt. sent in by a medical professional or institution (, PA, OIL REFINERY PROCESS TECHNICIAN, urgent care, hospital, or fdc...) When possible be specific @ -[No] Did you speak to anyone other than the patient for history (EMS, parent, family, police, friend...)? What history was obtained from this source @ -[EMS did give some history Did you review nursing and triage notes (agree or disagree)? Why? @ -[I reviewed and agree with nursing and triage notes] Were old charts reviewed (outside hosp., previous admission, EMS record, old EKG, old radiological studies, urgent care reports/EKG's, fdc records)? Report findings @ -[No old charts were reviewed] Differential Diagnosis (chest pain, altered mental status, abdominal pain women, abdominal pain men, vaginal bleeding, weakness, fever, dyspnea, syncope, headach e, dizziness, GI bleed, back pain, seizure, CVA, palpatations, mental health, musculoskeletal)? @ -Differential Chest Pain: Stable Angina, Unstable Angina, STEMI, NSTEMI Aortic Dissection, Pneumothorax, Musculoskeletal, Esophageal Spasm GERD, Cholecystitis, Pancreatitis, Zoster, this is not meant to be an all-inclusive list. EKG interpreted by me (3pts min.). @ -[I interpreted as above] X-rays interpreted by me (1pt min.). @ -[I interpreted as above CT interpreted by me (1pt min.). @ -[None done] U/S interpreted by me (1pt. min.). @ -[None done] What testing was considered but not performed or refused? (CT, X-rays, U/S, labs)? Why? @ -[None] What meds were considered but not given or refused? Why? @ -[None] Did you discuss the management of the patient with other professionals (kathia abebe i.e. , PA, OIL REFINERY PROCESS TECHNICIAN, lab, RT, psych nurse, outreach and education social worker, lab support technician, teacher, ict help desk officer, embedded case manager)? Give summary @ -[I discussed the patient's case with the on-call high lead yarder who took the patient to to the Warble Saw Operator. I also discussed case with admitting physician Was smoking cessation discussed for >3mins.? @ -[No] Was critical care preformed (if so, how long)? @ -Yes, 35 minutes Were there social determinants of health that impacted care today? How? (Homelessness, low income, unemployed, alcoholism, drug addiction, transportation, low edu. Level, literacy, decrease access to med. care, residential, rehab)? @ -[No] Was there de-escalation of care discussed even if they declined (Discuss DNR or withdrawal of care, Hospice)? DNR status @ -[No] What co-morbidities impacted this encounter? (DM, HTN, Smoking, COPD, CAD, Cancer, CVA, ARF, Chemo, Hep., AIDS, mental health diagnosis, sleep apnea, morbid obesity)? @ -[None] Was patient admitted / discharged? Hospital course, mention meds given and route, prescriptions, significant lab abnormalities, going to OR and other per tinent info. @ -[As above Undiagnosed new problem with uncertain prognosis? @ -[No] Drug Therapy requiring intensive monitoring for toxicity (Heparin, Nitro, Insulin, Cardizem)? @ -[Heparin Were any procedures done? @ -[No] Diagnosis/symptom? @ -[Acute STEMI Acute congestive heart failure Hyponatremia Acute, or Chronic, or Acute on Chronic? @ -[Acute Uncomplicated (without systemic symptoms) or Complicated (systemic symptoms)? @ -[Complicated by congestive heart failure Side effects of treatment? @ -[No] Exacerbation, Progression, or Severe Exacerbation? @ -[No] Poses a threat to life or bodily function? How? (Chest pain, [place], [place], pneumonia, PE, COPD, DKA, ARF, appy, cholecystitis, CVA, Diverticulitis, Homicidal, Suicidal, threat to staff... and all critical care pts) @ -Yes - Lab Data Result diagrams: 06/04/23 05:20 06/05/23 04:53 Lab Results 05/30/23 05/30/23 05/30/23 Range/Units 02:48 02:48 02:48 WBC 7.5 (3.8-10.6) k/uL RBC 4.36 (4.30-5.90) m/uL Hgb 14.9 (13.0-17.5) gm/dL Hct 44.6 (39.0-53.0) % MCV 102.3 H (80.0-100.0) fL MCH 34.2 (25.0-35.0) pg MCHC 33.5 (31.0-37.0) g/dL RDW 11.8 (11.5-15.5) % Plt Count 221 (150-450) k/uL MPV 8.8 Neutrophils % 58 % Lymphocytes % 32 % Monocytes % 5 % Eosinophils % 2 % Basophils % 1 % Neutrophils # 4.4 (1.3-7.7) k/uL Lymphocytes # 2.4 (1.0-4.8) k/uL Monocytes # 0.4 (0-1.0) k/uL Eosinophils # 0.2 (0-0.7) k/uL Basophils # 0.0 (0-0.2) k/uL PT 9.9 L (10.0-12.5) sec INR 0.9 (<1.2) APTT 22.1 (22.0-30.0) sec D-Dimer 1.03 H (<0.60) mg/L FEU Sodium 126 L (137-145) mmol/L Potassium 4.2 (3.5-5.1) mmol/L Chloride 98 (98-107) mmol/L Carbon Dioxide 17 L (22-30) mmol/L Anion Gap 11 mmol/L BUN 4 L (9-20) mg/dL Creatinine 0.81 (0.66-1.25) mg/dL Est GFR (CKD-EPI)AfAm >90 (>60 ml/min/1.73 sqM) Est GFR (CKD-EPI)NonAf >90 (>60 ml/min/1.73 sqM) Glucose 178 H (74-99) mg/dL Lactic Ac Sepsis Rflx Plasma Lactic Acid Donnell (0.7-2.0) mmol/L Calcium 8.0 L (8.4-10.2) mg/dL Magnesium 2.1 (1.6-2.3) mg/dL Total Bilirubin 0.6 (0.2-1.3) mg/dL AST 41 (17-59) U/L ALT 26 (4-49) U/L Alkaline Phosphatase 59 (38-126) U/L Troponin I (0.000-0.034) ng/mL NT-Pro-B Natriuret Pep 4140 pg/mL Total Protein 6.8 (6.3-8.2) g/dL Albumin 3.8 (3.5-5.0) g/dL 05/30/23 05/30/23 05/30/23 Range/Units 02:48 02:48 04:30 WBC (3.8-10.6) k/uL RBC (4.30-5.90) m/uL Hgb (13.0-17.5) gm/dL Hct (39.0-53.0) % MCV (80.0-100.0) fL MCH (25.0-35.0) pg MCHC (31.0-37.0) g/dL RDW (11.5-15.5) % Plt Count (150-450) k/uL MPV Neutrophils % % Lymphocytes % % Monocytes % % Eosinophils % % Basophils % % Neutrophils # (1.3-7.7) k/uL Lymphocytes # (1.0-4.8) k/uL Monocytes # (0-1.0) k/uL Eosinophils # (0-0.7) k/uL Basophils # (0-0.2) k/uL PT (10.0-12.5) sec INR (<1.2) APTT (22.0-30.0) sec D-Dimer (<0.60) mg/L FEU Sodium (137-145) mmol/L Potassium (3.5-5.1) mmol/L Chloride (98-107) mmol/L Carbon Dioxide (22-30) mmol/L Anion Gap mmol/L BUN (9-20) mg/dL Creatinine (0.66-1.25) mg/dL Est GFR (CKD-EPI)AfAm (>60 ml/min/1.73 sqM) Est GFR (CKD-EPI)NonAf (>60 ml/min/1.73 sqM) Glucose (74-99) mg/dL Lactic Ac Sepsis Rflx Y Plasma Lactic Acid Donnell 4.5 H* (0.7-2.0) mmol/L Calcium (8.4-10.2) mg/dL Magnesium (1.6-2.3) mg/dL Total Bilirubin (0.2-1.3) mg/dL AST (17-59) U/L ALT (4-49) U/L Alkaline Phosphatase (38-126) U/L Troponin I 8.030 H* (0.000-0.034) ng/mL NT-Pro-B Natriuret Pep pg/mL Total Protein (6.3-8.2) g/dL Albumin (3.5-5.0) g/dL - EKG Data -: EKG Interpreted by Ct EKG shows normal: sinus rhythm, axis (Normal), intervals (Normal), ST-T waves (ST elevations V3 V4) Rate: tachycardia (Rate 113) Critical Care Time Critical Care Time: Yes (35 minutes) Disposition Clinical Impression: STEMI (ST elevation myocardial infarction), Congestive heart failure, Hyponatremia Disposition: ADMITTED IP TO THIS HOSP Condition: Stable
[2023-05-30] MEDS: NITROGLYCERIN OINT 1 INCH/GM PACKET TOPICAL STA (02:59)
[2023-05-30] MEDS: MORPHINE SULFATE 4 MG/ML SYRINGE IV STA (03:00)
[2023-05-30] MEDS: FUROSEMIDE 10 MG/ML 2 ML VIAL IV ONE (03:01)
[2023-05-30 03:04] LABS: Basophils % (A) 1 %; Eosinophils # (A) 0.2 k/uL (0-0.7); Eosinophils % (A) 2 %; HCT 44.6 % (39.0-53.0); HGB 14.9 gm/dL (13.0-17.5); Lymphocytes # (A) 2.4 k/uL (1.0-4.8); Lymphocytes % (A) 32 %; MCH 34.2 pg (25.0-35.0); MCHC 33.5 g/dL (31.0-37.0); MCV 102.3 fL (80.0-100.0); Mean Platelet Volume 8.8; Monocytes # (A) 0.4 k/uL (0-1.0); Monocytes % (A) 5 %; Neutrophils # (A) 4.4 k/uL (1.3-7.7); Neutrophils % (A) 58 %; Platelet Count 221 k/uL (150-450); RBC 4.36 m/uL (4.30-5.90); RDW 11.8 % (11.5-15.5); WBC 7.5 k/uL (3.8-10.6)
--- NOTE | 2023-05-30 03:13 | XR ---
EXAMINATION TYPE: XR chest 1V portable DATE OF EXAM: 05/30/2023 COMPARISON: Chest x-ray February 01, 2017 HISTORY: Dyspnea. TECHNIQUE: Single frontal view of the chest is obtained. FINDINGS: Reticular increased markings bilaterally with increased opacities in the mid to lower lung s. Cardiac silhouette size is upper limits of normal. The osseous structures are intact. IMPRESSION: Bilateral mid to lower lung edema and/or acute infiltrates on current study felt present . Correlate clinically for suspected fluid overload state.
[2023-05-30 03:23] LABS: INR 0.9 (<1.2)
[2023-05-30 03:24] LABS: Partial Thromboplastin Time 22.1 sec (22.0-30.0); Prothrombin Time 9.9 sec (10.0-12.5)
[2023-05-30 03:25] LABS: ALT 26 U/L (4-49); African American GFR (CKD) >90 (>60 ml/min/1.73 sqM); Albumin 3.8 g/dL (3.5-5.0); Anion Gap 11 mmol/L; Blood Urea Nitrogen 4 mg/dL (9-20); Carbon Dioxide 17 mmol/L (22-30); Chloride 98 mmol/L (98-107); Glucose 178 mg/dL (74-99); Non-African American GFR(CKD) >90 (>60 ml/min/1.73 sqM); Sodium 126 mmol/L (137-145); Total Bilirubin 0.6 mg/dL (0.2-1.3); Total Protein 6.8 g/dL (6.3-8.2)
[2023-05-30] MEDS ORDERED: VERAPAMIL 2.5 MG/ML 2 ML AMP ONE (03:26)
[2023-05-30] MEDS ORDERED: LIDOCAINE 1% INJ 10MG/ML (20 ML MDV) ONE (03:26)
[2023-05-30] MEDS ORDERED: fentaNYL (PF) 50 MCG/ML 2 ML AMP ONE (03:26)
[2023-05-30] MEDS ORDERED: HEPARIN SODIUM 1,000 UN/ML (10ML VL) ONE (03:26)
--- NOTE | 2023-05-30 03:28 | P.CRDCN ---
History of Present Illness History of present illness: HISTORY OF PRESENTING ILLNESS This is a pleasant 63-year-old with past medical history significant for hypertension, hyperlipidemia, COPD, tobacco abuse, family history of CAD. He has not seen a bone glue maker previously. He states over last 3-4 days he has been having shortness breath at times. He denies any real chest pain however on further questioning admits to some achiness in his bottom part of his chest. He states symptoms got significantly worse and therefore presented to emergency department. He admitted to more diaphoresis and just not feeling well. EKG shows sinus tachycardia with Q waves V1 through V3 with ST elevations in V3 through the 4 as well as minimal elevation lead 3. He does smoke, no alcohol, no illicit drugs. Family history of father with ND in his 60s. Denies any hematochezia or melena REVIEW OF SYSTEMS At the time of my exam: CONSTITUTIONAL: Denies fever or chills. CARDIOVASCULAR: +chest pain, +shortness of breath, no orthopnea, PND or palpita tions. RESPIRATORY: Denies cough. GASTROINTESTINAL: Denies abdominal pain, diarrhea, constipation, nausea or vomiting. MUSCULOSKELETAL: Denies myalgias. NEUROLOGIC: Denies numbness, tingling or weakness. ENDOCRINE: Denies fatigue, weight change, polydipsia or polyurina. GENITOURINARY: Denies burning, hematuria or urgency with micturation. HEMATOLOGIC: Denies history of anemia or bleeding. PHYSICAL EXAMINATION Vital signs reviewed. CONSTITUTIONAL: No apparent distress. HEENT: Head is normocephalic. Pupils are equal, round. Sclerae anicteric. Mucous membranes of the mouth are moist. No JVD. No carotid bruit. CHEST EXAMINATION: Lungs are clear to auscultation. No chest wall tenderness is noted on palpation or with deep breathing. HEART EXAMINATION: Regular rate and rhythm. S1, S2 heard. No murmurs, gallops or rub. ABDOMEN: Soft, nontender. Positive bowel sounds. EXTREMITIES: 2+ peripheral pulses, no lower extremity edema and no calf tenderness. NEUROLOGIC EXAMINATION: Patient is awake, alert and oriented x3. ASSESSMENT 1. Anterior STEMI, likely why presenting 2. Hypertension 3. Hyperlipidemia 4. COPD 5. Tobacco abuse 6. Family history of CAD PLAN Patient's main anginal symptom appears more shortness breath and likely somewhat late presenting with Q waves anteriorly. Still having ongoing shortness breath as well as some atypical chest pain and therefore discuss heart catheterization patient is agreeable. Aspirin, heparin. Beta blockers tolerated. Check 2-D echo. Further recommendations to follow. Past Medical History Past Medical History: COPD Additional Past Medical History / Comment(s): arthristis, Hepatitis C History of Any Multi-Drug Resistant Organisms: None Reported Past Surgical History: Orthopedic Surgery Additional Past Surgical History / Comment(s): right hand Past Psychological History: No Psychological Hx Reported Smoking Status: Current every day smoker Past Alcohol Use History: Abuse Past Drug Use History: None Reported Medications and Allergies Home Medications Medication Instructions Recorded Confirmed Type Albuterol Inhaler [Ventolin Hfa 1 - 2 puff INHALATION RT-Q6H PRN 09/28/18 09/28/18 History Inhaler] Aspirin EC [Ecotrin Low Dose] 81 mg PO DAILY 09/28/18 09/28/18 History Fluticasone Propion/Salmeterol 1 puff INHALATION RT-DAILY 09/28/18 09/28/18 History [Airduo Respiclick 113-14 Mcg] Meloxicam [Mobic] 7.5 mg PO BID 09/28/18 09/28/18 History Montelukast [Singulair] 10 mg PO HS 09/28/18 09/28/18 History Umeclidinium [place] [Incruse 1 puff INHALATION RT-HS 09/28/18 09/28/18 History Ellipta] lisinopriL [Zestril] 5 mg PO DAILY 09/28/18 09/28/18 History raNITIdine HCL [Zantac] 75 mg PO DAILY 09/28/18 09/28/18 History Cephalexin [Keflex] 500 mg PO Q6HR 1 Days #4 cap 02/15/21 Rx Allergies Allergy/AdvReac Type Severity Reaction Status Date / Time No Known Allergies Allergy Verified 05/30/23 02:44 Physical Exam Vitals: Vital Signs Temp Pulse Resp BP Pulse Ox 05/30/23 03:13 99 20 116/79 90 L 05/30/23 03:05 106 H 28 H 115/85 91 L 05/30/23 02:55 116 H 28 H 125/86 90 L 05/30/23 02:50 118 H 34 H 127/93 90 L 05/30/23 02:40 98.4 F 130 H 30 H 119/93 86 L Intake and Output 05/29/23 05/29/23 05/30/23 14:59 22:59 06:59 Other: Weight 68.039 kg Results 05/30/23 02:48 CBC 05/30/23 Range/Units 02:48 WBC 7.5 (3.8-10.6) k/uL RBC 4.36 (4.30-5.90) m/uL Hgb 14.9 (13.0-17.5) gm/dL Hct 44.6 (39.0-53.0) % Plt Count 221 (150-450) k/uL Intake and Output 05/29/23 05/29/23 05/30/23 14:59 22:59 06:59 Other: Weight 68.039 kg Patient Weight 05/30/23 06:59 Weight 68.039 kg 05/30/23 02:48
[2023-05-30 03:32] LABS: NT-Pro-B-Type Natriuretic Pept 4140 pg/mL
[2023-05-30] MEDS: fentaNYL (PF) 50 MCG/1 ML VIAL IVP ONE (03:34)
[2023-05-30] MEDS: SODIUM CHLORIDE 0.9% 1,000 ML IV ONE (03:34)
[2023-05-30] MEDS: LIDOCAINE 1% INJ 10MG/ML (20 ML MDV) SQ ONE (03:34)
[2023-05-30] MEDS: MIDAZOLAM 2 MG/2 ML VIAL IVP ONE (03:34)
[2023-05-30] MEDS: VERAPAMIL SYRINGE (5 MG/10 ML) INTRAARTER ONE (03:36)
[2023-05-30] MEDS: HEPARIN SODIUM 1,000 UN/ML (10ML VL) IV ONE ×2 (03:36→05:21)
[2023-05-30] MEDS ORDERED: TICAGRELOR 90 MG TAB ONE (03:38)
[2023-05-30] MEDS: TICAGRELOR 90 MG TAB PO ONE (03:48)
[2023-05-30] MEDS: IOPAMIDOL-370 100ML BTL INJ ONE ×3 (04:04→05:30)
[2023-05-30] MEDS: NITROGLYCERIN 1000MCG/10ML SYRINGE INTRACORON ONE (04:14)
[2023-05-30 04:30] LABS: AST 41 U/L (17-59); Magnesium 2.1 mg/dL (1.6-2.3); Potassium 4.2 mmol/L (3.5-5.1)
[2023-05-30 04:31] LABS: Alkaline Phosphatase 59 U/L (38-126)
[2023-05-30] MEDS ORDERED: NITROGLYCERIN SL TABS 0.4 MG TAB SUBLINGUAL PRN (05:38)
[2023-05-30] MEDS ORDERED: ATROPINE SULFATE 0.1 MG/ML 10ML SYRINGE IV PRN (05:38)
[2023-05-30] MEDS ORDERED: MAG HYDROX/AL HYDROX/SIMETH 30 ML CUP PO PRN (05:38)
[2023-05-30] MEDS ORDERED: RX INFO: IV CONTRAST WAS GIVEN 1 EACH MISC MISCELLANE PRN (05:38)
[2023-05-30 05:57] LABS: Glucose,Whole Blood 124 mg/dL (70-110)
--- NOTE | 2023-05-30 06:12 | P.PRCINT ---
Percutaneous Coronary Int. - Percutaneous Coronary Intervention Percutaneous Coronary Intervention: PROCEDURES PERFORMED: Left heart catheterization, bilateral coronary angiography, ultrasound guided arterial access, IVUS LAD, PCI diagonal 1 with overlapping 2.0 x 26 mm and 2.0 x 18 mm Morrill ANÍBAL, PCI proximal to mid LAD with 2.75 x 38mm Xience ANÍBAL, postdilated with a 3.0 noncompliant balloon INDICATION: Late presenting STEMI CONSENT:I have discussed the risks, benefits and alternative therapies for the above-mentioned procedure and for both sedation/analgesia as well as necessary blood product administration, if indicated, as they pertain to this patient. The patient has indicated understanding and acceptance of the risks and procedures discussed. PROCEDURE: After the risks, benefits and alternatives of the above mentioned procedure explained in detail with the patient, informed consent was obtained. Patient was taken to the catheterization lab and prepped and draped in usual fashion. Ultrasound guidance was used to assess for arterial access. 1% lidocaine was used to anesthetize the right radial artery. A 6-Sudanese sheath was placed in the right radial artery using modified Seldinger technique and ultrasound guidance. Right coronary angiography was performed with a 5-[place] AR2 catheter in various views. A 5-[place] FR5 catheter was inserted into the left ventricle and pressure measurements were obtained. The decision was made to perform PCI of the LAD. A 6-[place]anese CLS 3.5 guide was used to engage the left main. Heparin was given. There was dual LAD anatomy. A 0.014 BMW wire was placed in the superior LAD/diagonal 1 and additional wire placed in the LAD. Given involvement with the bifurcation, bifurcation stenting was required. Initial balloon age [place] was performed with a 2.5 x 12 mm balloon and both the diagonal 1 as well as LAD. Intravascular ultrasound was performed with reference vessel in the diagonal 12.0 mm and in the LAD 2.75 distally and 3.0 proximally. There was a more calcified ostial LAD lesion which was approximate 40% by ultrasound and therefore recommended medical therapy. Next a 2.0 x 26 mm Morrill ANÍBAL was placed in the proximal diagonal 1. There was poor flow distally and therefore attempted intervascular ultrasound however not able to pass the ultrasound on the way to the lesion. The lesion was again predilated with a 2.5 noncompliant balloon. Next a 2.0 x 18 mm Morrill ANÍBAL was placed overlapping the first of more distally. There was some improved antegrade flow however still a more distal lesion felt possibly related to some thrombus embolized distally. Initially felt possibly treating with stents however stent unable to pass easily to the area. With nitro the lesion improved and therefore felt best treated medically. The proximal portion of the stent was postdilated with 2.5 noncompliant balloon. The proximal portion of the st ent extending into the LAD was crushed with a 2.5 noncompliant balloon in the LAD. Next the crushed stent was rewired and the balloon with a 1.5 and then 2.5 noncompliant balloon. Attempted to advance to 2.5 noncompliant balloons which were unable to pass through the catheter despite fresh balloons. Therefore given good expansion with a 2.5 noncompliant balloon, decision made to stent over the diagonal branch. Therefore a 2.75 x 38mm Xience ANÍBAL was placed from the proximal to mid LAD. The ostial LAD lesion was treated. The proximal portion of the stent was postdilated with 3.0 noncompliant balloon. Final angiogram performed. Prevention there is 99% diagonal 1 stenosis and LAD 60-70% stenosis and YASMEEN 2 flow. Postintervention there was less than 10% stenosis and YASMEEN-3 flow. The right radial sheath was removed and a TR band was placed with hemostasis achieved. The patient tolerated the procedure well. Patient was transported back to the post catheterization holding area in stable condition. Conscious Sedation: Patient was monitored under the direct supervision of myself for conscious sedation using Versed and fentanyl for a total duration of 120 minutes HEMODYNAMICS: Aortic: 1002/67 LV: 98/10, LVEDP 21 SELECTIVE CORONARY ARTERIOGRAPHY: LEFT MAIN: The left main is a large caliber vessel which bifurcates into the LAD and circumflex. There is 10% stenosis. LEFT ANTERIOR DESCENDING CORONARY ARTERY: LAD is a large caliber vessel which wraps around to the apex. There dual LAD anatomy with superior branch/diagonal 1 with a ostial 99% stenosis and otherwise diffuse 20-30% stenosis. There is a mid diagonal 1 50% stenosis. The LAD has a ostial 40% stenosis and mid LAD 60- 70% stenosis. There are [id number] collaterals. LEFT CIRCUMFLEX CORONARY ARTERY: Left circumflex is a moderate caliber vessel with a proximal 50% stenosis. RIGHT CORONARY ARTERY: The right coronary artery is a large caliber vessel which gives off a PDA and PLV branch and is the dominant vessel. There is 100% mid RCA stenosis FINAL IMPRESSION: 1. CAD as described above including 40% ostial LAD, 99% ostial diagonal 1, 60- 70% mid LAD stenosis, 50% circumflex, 100% mid RCA stenosis 2. S/p PCI diagonal 1 with overlapping 2.0 x 26 mm and 2.0 x 18 mm Adalberto ANÍBAL, PCI proximal to mid LAD with 2.75 x 38mm Xience ANÍBAL, postdilated with a 3.0 noncompliant balloon 3. Elevated left sided filling pressures PLAN: 1. Aggressive risk factor modification per most recent ACC/AHA guidelines. 2. Continue dual antiplatelets with aspirin and Brillinta for 12 months. 3. Likely treat RCA medically.
[2023-05-30] MEDS: SODIUM CHLORIDE 0.9% 1,000 ML in EMPTY BAG 1 BAG IV SCH (06:37)
[2023-05-30] MEDS: METOPROLOL TARTRATE 25 MG TAB PO SCH (08:52)
[2023-05-30] MEDS: ASPIRIN 81 MG PO SCH (08:52)
[2023-05-30] MEDS: TICAGRELOR 90 MG TAB PO SCH (08:52)
[2023-05-30] MEDS ORDERED: LORazepam 2 MG/ML INJ IV PRN (10:27)
[2023-05-30] MEDS: LORazepam 2 MG/ML INJ IV PRN (10:37)
[2023-05-30] MEDS: ONDANSETRON 4 MG/2 ML VIAL IVP PRN (10:37)
[2023-05-30] MEDS: lisinopriL 5 MG TAB PO SCH (10:39)
[2023-05-30] MEDS: PANTOPRAZOLE 40 MG TABLET PO SCH (10:40)
[2023-05-30] MEDS: THIAMINE 100 MG/ML 2 ML VIAL IM STA (11:26)
[2023-05-30] MEDS: NICOTINE 21MG/24HR PATCH TRANSDERM SCH (11:29)
[2023-05-30] MEDS: diazePAM 2 MG TAB PO SCH (12:23)
[2023-05-30] MEDS: IPRATROPIUM 0.5 MG/2.5 ML NEBU INHALATION SCH (16:04)
--- NOTE | 2023-05-30 17:16 | P.HPIM ---
History of Present Illness H&P Date: 05/30/23 Chief Complaint: chest pain patient presents to the emergency room early this morning with chest pain and subsequently went to the catheter lab with Dr. Anup Lee where he underwent a cardiac catheterization secondary to a STEMI, patient underwent angioplasty with 3 stents placed and 2 vessel, I evaluated the patient this morning he was his responses were limited secondary to persistent residual anesthetic, he denied chest pain at this time denied shortness of breath at this time denied nausea and vomiting at this time Review of Systems Constitutional: Reports fatigue, Reports sweats Ears, nose, mouth and throat: Reports as per HPI Cardiovascular: Reports chest pain, Reports shortness of breath Respiratory: Reports congestion, Reports dyspnea Gastrointestinal: Reports as per HPI Genitourinary: Reports as per HPI Musculoskeletal: Reports as per HPI Integumentary: Reports as per HPI Neurological: Reports as per HPI Psychiatric: Reports as per HPI Endocrine: Reports as per HPI Past Medical History Past Medical History: Coronary Artery Disease (CAD), COPD, Dementia, GERD/Reflux, Hyperlipidemia, Hypertension, Liver Disease, Myocardial Infarction ([place]) Additional Past Medical History / Comment(s): arthristis, Hepatitis C,alcoholic liver disease Last Myocardial Infarction Date:: t History of Any Multi-Drug Resistant Organisms: None Reported Past Surgical History: Heart Catheterization, Heart Catheterization With Stent, Orthopedic Surgery Additional Past Surgical History / Comment(s): right hand Past Anesthesia/Blood Transfusion Reactions: No Reported Reaction Date of Last Stent Placement:: 05/30/23 Past Psychological History: Anxiety, Depression Smoking Status: Current every day smoker Past Alcohol Use History: Abuse Past Drug Use History: None Reported - Past Family History Father History Unknown: Yes Family Medical History: Coronary Artery Disease (CAD) Additional Family Medical History / Comment(s): Lupus Occupational Seizure History - Commerical Driving History Currently uses [employer] for employment (including self-employed).: No Medications and Allergies Home Medications Medication Instructions Recorded Confirmed Type Albuterol Inhaler [Ventolin Hfa 1 - 2 puff INHALATION RT-Q6H PRN 09/28/18 05/30/23 History Inhaler] Aspirin EC [Ecotrin Low Dose] 81 mg PO DAILY 09/28/18 05/30/23 History Montelukast [Singulair] 10 mg PO HS 09/28/18 05/30/23 History lisinopriL [Zestril] 5 mg PO DAILY 09/28/18 05/30/23 History Fluticasone/Umeclidin/Vilanter 1 puff INHALATION RT-DAILY 05/30/23 05/30/23 History [Trelegy Ellipta 100-62.5-25] Omeprazole 20 mg PO DAILY 05/30/23 05/30/23 History Pravastatin Sodium [Pravachol] 10 mg PO HS 05/30/23 05/30/23 History Tiotropium [place] [Spiriva] 18 mcg INHALATION RT-DAILY 05/30/23 05/30/23 History Allergies Allergy/AdvReac Type Severity Reaction Status Date / Time No Known Allergies Allergy Verified 05/30/23 12:13 Physical Exam Osteopathic Statement: *. No significant issues noted on an osteopathic structural exam other than those noted in the History and Physical/Consult. Vitals: Vital Signs Temp Pulse Resp BP Pulse Ox 05/30/23 16:14 92 05/30/23 16:04 90 05/30/23 16:00 98.0 F 83 11 L 73/52 97 05/30/23 15:00 92 19 84/67 90 L 05/30/23 14:00 92 26 H 90/54 92 L 05/30/23 13:00 87 19 89/71 95 05/30/23 12:00 98.2 F 90 16 89/67 96 05/30/23 11:00 87 27 H 105/73 87 L 05/30/23 10:30 98 19 93/72 96 05/30/23 10:00 98 17 98/73 92 L 05/30/23 09:30 98 12 109/84 95 05/30/23 09:00 108 H 21 116/83 92 L 05/30/23 08:41 92 L 05/30/23 08:30 97.5 F L 103 H 11 L 104/79 94 L 05/30/23 08:00 99 24 97/72 94 L 05/30/23 07:30 96 18 92/82 94 L 05/30/23 07:00 98 12 103/74 92 L 05/30/23 06:50 96 7 L 93 L 05/30/23 06:40 94 11 L 93 L 05/30/23 06:30 96 16 90 L 05/30/23 06:20 101 H 16 94 L 05/30/23 06:10 108 H 16 89 L 05/30/23 06:00 97.9 F 107 H 17 112/77 90 L 05/30/23 03:13 99 20 116/79 90 L 05/30/23 03:05 106 H 28 H 115/85 91 L 05/30/23 02:55 116 H 28 H 125/86 90 L 05/30/23 02:50 118 H 34 H 127/93 90 L 05/30/23 02:40 98.4 F 130 H 30 H 119/93 86 L Intake and Output 05/30/23 05/30/23 05/30/23 06:59 14:59 22:59 Intake Total 370 910 140 Output Total 1400 300 200 Balance -1030 610 -60 Intake: IV 300 490 140 Sodium Chloride 0.9% 1, 490 140 000 ml In Empty Bag 1 bag @ 1 ML/KG/HR 68.039 mls/ hr IV .[id number] [facility] Rx#: [id number] Intake, IV Titration 70 70 Amount Sodium Chloride 0.9% 1, 70 70 000 ml In Empty Bag 1 bag @ 1 ML/KG/HR 68.039 mls/ hr IV .[id number] [facility] Rx#: [id number] Oral 350 Output: Urine 1400 300 200 Other: Weight 68.039 kg 68.039 kg General: [Patient awake, alert and oriented times 3. Patient in no acute distress.] HEENT: [PERRL. EOMI. No pharyngeal erythema or exudate.] Neck: [No adenopathy.] Cardiac: [Heart regular in rate and rhythm. No S3. No S4. No clicks, rubs. No murmur.] Lungs: [Clear to auscultation bilaterally.] Abdomen: [No mass. No organomegaly. Bowel sounds presnt and normoactive in all 4 quadrants.] Extremes: [No edema no cyanosis no claudication normal pulses] : normal male genitalia Musculoskeletal: [No joint erythema, edema or tenderness.] Skin: [No rash.] Neurologic: [No lateralizing deficits. CN II - XII grossly intact.] Lymphatic: [No adenopathy.] Results CBC & Chem 7: 05/30/23 02:48 05/30/23 02:48 Labs: Abnormal Lab Results - Last 24 Hours (Table) 05/30/23 05/30/23 05/30/23 Range/Units 02:48 02:48 02:48 MCV 102.3 H (80.0-100.0) fL PT 9.9 L (10.0-12.5) sec D-Dimer 1.03 H (<0.60) mg/L FEU Sodium 126 L (137-145) mmol/L Carbon Dioxide 17 L (22-30) mmol/L BUN 4 L (9-20) mg/dL Glucose 178 H (74-99) mg/dL POC Glucose (mg/dL) (70-110) mg/dL Plasma Lactic Acid Donnell (0.7-2.0) mmol/L Calcium 8.0 L (8.4-10.2) mg/dL Troponin I (0.000-0.034) ng/mL 05/30/23 05/30/23 05/30/23 Range/Units 02:48 02:48 05:55 MCV (80.0-100.0) fL PT (10.0-12.5) sec D-Dimer (<0.60) mg/L FEU Sodium (137-145) mmol/L Carbon Dioxide (22-30) mmol/L BUN (9-20) mg/dL Glucose (74-99) mg/dL POC Glucose (mg/dL) 124 H (70-110) mg/dL Plasma Lactic Acid Donnell 4.5 H* (0.7-2.0) mmol/L Calcium (8.4-10.2) mg/dL Troponin I 8.030 H* (0.000-0.034) ng/mL 05/30/23 05/30/23 Range/Units 07:01 10:16 MCV (80.0-100.0) fL PT (10.0-12.5) sec D-Dimer (<0.60) mg/L FEU Sodium (137-145) mmol/L Carbon Dioxide (22-30) mmol/L BUN (9-20) mg/dL Glucose (74-99) mg/dL POC Glucose (mg/dL) (70-110) mg/dL Plasma Lactic Acid Donnell 2.1 H* 2.5 H* (0.7-2.0) mmol/L Calcium (8.4-10.2) mg/dL Troponin I (0.000-0.034) ng/mL Thrombosis Risk Factor Assmnt - DVT/VTE Prophylaxis DVT/VTE Prophylaxis: Pharmacologic Prophylaxis ordered, Mechanical Prophylaxis ordered - Choose All That Apply Any of the Below Risk Factors Present?: Yes Each Factor Represents 1 point: Medical pt on bed rest Other Risk Factors: Yes Each Risk Factor Represents 2 Points: Age 61-74 years, Patient confined to bed Other congenital or acquired thrombophilia - If yes, enter type in comment: No Thrombosis Risk Factor Assessment Total Risk Factor Score: 5 Thrombosis Risk Factor Assessment Level: High Risk Assessment and Plan (1) Alcoholic liver disease Current Visit: Yes Status: Acute Code(s): K70.9 - ALCOHOLIC LIVER DISEASE, UNSPECIFIED SNOMED Code(s): 36579092 (2) Chronic obstructive pulmonary disease Current Visit: Yes Status: Acute Code(s): J44.9 - CHRONIC OBSTRUCTIVE PULMONARY DISEASE, UNSPECIFIED SNOMED Code(s): 14538687 (3) Congestive heart failure Current Visit: Yes Status: Acute Code(s): I50.9 - HEART FAILURE, UNSPECIFIED SNOMED Code(s): 61073340 (4) STEMI (ST elevation myocardial infarction) Current Visit: Yes Status: Acute Code(s): I21.3 - ST ELEVATION (STEMI) MYOCARDIAL INFARCTION OF UNSP SITE SNOMED Code(s): 81164682 (5) Groin strain Current Visit: No Status: Acute Code(s): S76.219A - STRAIN OF ADDUCTOR MUSC/FASC/TEND UNSP THIGH, INIT SNOMED Code(s): 955569033 Plan: cardiology consultation underwent cardiac catheterization Angioplasty with stent placement Daily alcohol use abuseCiWA protocol Nicotine patch Further orders to follow Time with Patient: Greater than 30
[2023-05-30] MEDS: ATORVASTATIN 80 MG TAB PO SCH (21:38)
[2023-05-30] MEDS: METOPROLOL TARTRATE 12.5 MG TAB PO SCH (21:38)
[2023-05-31] MEDS: IBUPROFEN 400 MG TAB PO PRN (03:30)
[2023-05-31 04:31] LABS: African American GFR (CKD) >90 (>60 ml/min/1.73 sqM); Non-African American GFR(CKD) >90 (>60 ml/min/1.73 sqM)
[2023-05-31 08:24] LABS: HCT 38.2 % (39.0-53.0); HGB 13.3 gm/dL (13.0-17.5); MCH 35.1 pg (25.0-35.0); MCHC 34.7 g/dL (31.0-37.0); MCV 100.9 fL (80.0-100.0); Platelet Count 220 k/uL (150-450); RBC 3.79 m/uL (4.30-5.90); RDW 11.9 % (11.5-15.5); WBC 9.8 k/uL (3.8-10.6)
[2023-05-31] MEDS: ACETAMINOPHEN TAB 325 MG TAB PO PRN (08:39)
[2023-05-31] MEDS: THIAMINE 100 MG TAB PO SCH (08:40)
[2023-05-31 08:51] LABS: ALT 36 U/L (4-49); AST 113 U/L (17-59); African American GFR (CKD) >90 (>60 ml/min/1.73 sqM); Albumin 3.1 g/dL (3.5-5.0); Alkaline Phosphatase 63 U/L (38-126); Anion Gap 9 mmol/L; Blood Urea Nitrogen 11 mg/dL (9-20); Calcium 8.6 mg/dL (8.4-10.2); Carbon Dioxide 17 mmol/L (22-30); Chloride 99 mmol/L (98-107); Glucose 145 mg/dL (74-99); Non-African American GFR(CKD) >90 (>60 ml/min/1.73 sqM); Potassium 4.5 mmol/L (3.5-5.1); Sodium 125 mmol/L (137-145); Total Bilirubin 0.9 mg/dL (0.2-1.3); Total Protein 5.8 g/dL (6.3-8.2)
--- NOTE | 2023-05-31 10:24 | P.PN ---
Subjective HISTORY OF PRESENTING ILLNESS This is a pleasant 63-year-old with past medical history significant for hypertension, hyperlipidemia, COPD, tobacco abuse, family history of CAD. 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 He states over last 3-4 days he has been having shortness breath at times. He denies any real chest pain however on further questioning admits to some achiness in his bottom part of his chest. He states symptoms got significantly worse and therefore presented to emergency department. He admitted to more diaphoresis and just not feeling well. EKG shows sinus tachycardia with Q waves V1 through V3 with ST elevations in V3 through the 4 as well as minimal elevation lead 3. He does smoke, no alcohol, no illicit drugs. Family history of father with [place] in his 60s. Denies any hematochezia or melena 2/4 Patient seen and examined. Patient denies any further chest pain. He underwent successful stenting of the bifurcation LAD, diagonal 1 branch. Echocardiogram is pending. He is going through withdrawals and normally drinks approximately 18-20 beers a day. He has been receiving Valium and occasionally Ativan and this may be influencing some of the lower blood pressures occasionally in the 80s over 50s. He does admit that if he stands up too quickly he will get lightheaded. He did have brief run of nonsustained VT for 10 beats. He was placed on lisinopril/metoprolol however has been held secondary to hypotension. PHYSICAL EXAMINATION Vital signs reviewed. CONSTITUTIONAL: No apparent distress. HEENT: Head is normocephalic. Pupils are equal, round. Sclerae anicteric. Mucous membranes of the mouth are moist. No JVD. No carotid bruit. CHEST EXAMINATION: Lungs are clear to auscultation. No chest wall tenderness is noted on palpation or with deep breathing. HEART EXAMINATION: Regular rate and rhythm. S1, S2 heard. No murmurs, gallops or rub. ABDOMEN: Soft, nontender. Positive bowel sounds. EXTREMITIES: 2+ peripheral pulses, no lower extremity edema and no calf tenderness. NEUROLOGIC EXAMINATION: Patient is awake, alert and oriented x3. ASSESSMENT 1. Anterior STEMI, s/p PCI LAD/ diagonal 2/3 2. Hypertension 3. Hyperlipidemia 4. COPD 5. Tobacco abuse 6. Family history of CAD 7. Alcohol abuse 8. Withdrawals 9. Hypotension, may be exacerbated by CIWA protocol 10. Nonsustained VT PLAN Await 2-D echo Aspirin and Brillinta Patient with hypotension and discontinue lisinopril however attempt beta praveen with metoprolol 12.5 with hold parameters. If further hypotension we will trial 500 mL IV fluid bolus and if resistant likely start Midodrine Treatment complicated by significant alcohol use and undergoing withdrawals. Objective - Vital Signs Vital signs: Vital Signs Temp 98.1 F 05/31/23 08:00 Pulse 85 05/31/23 09:00 Resp 12 05/31/23 09:00 BP 94/67 05/31/23 09:00 Pulse Ox 97 05/31/23 09:00 FiO2 Intake & Output 05/30/23 05/31/23 05/31/23 18:59 06:59 18:59 Intake Total 1190 280 150 Output Total 500 1100 180 Balance 690 -820 -30 Weight 68.039 kg 97.3 kg Intake: IV 770 280 Sodium Chloride 0.9% 1, 770 280 000 ml In Empty Bag 1 bag @ 1 ML/KG/HR 68.039 mls/ hr IV .[id number] [facility] Rx#: [id number] Intake, IV Titration 70 Amount Sodium Chloride 0.9% 1, 70 000 ml In Empty Bag 1 bag @ 1 ML/KG/HR 68.039 mls/ hr IV .[id number] [facility] Rx#: [id number] Oral 350 150 Output: Urine 500 1100 180 - Labs CBC & Chem 7: 05/31/23 07:42 05/31/23 07:42 Labs: Abnormal Lab Results - Last 24 Hours (Table) 05/30/23 05/31/23 05/31/23 Range/Units 10:16 07:42 07:42 RBC 3.79 L (4.30-5.90) m/uL Hct 38.2 L (39.0-53.0) % MCV 100.9 H (80.0-100.0) fL MCH 35.1 H (25.0-35.0) pg Sodium 125 L (137-145) mmol/L Carbon Dioxide 17 L (22-30) mmol/L Glucose 145 H (74-99) mg/dL Plasma Lactic Acid Donnell 2.5 H* (0.7-2.0) mmol/L AST 113 H (17-59) U/L Total Protein 5.8 L (6.3-8.2) g/dL Albumin 3.1 L (3.5-5.0) g/dL
[2023-05-31] MEDS ORDERED: PANTOPRAZOLE 40 MG TABLET PO SCH (12:00)
--- NOTE | 2023-05-31 12:21 | P.PN ---
Subjective Progress Note Date: 05/31/23 Principal diagnosis: STEMI Patient seen and examined, does not complain of chest pain. Underwent successful stenting of the bifurcation of the LAD diagonal branch per Dr. Lee cardiology, currently going through withdrawals drinks approximately 8- 20 beers a day he is on the CIwa protocol, also has nicotine patch is a chronic smoker a brief run of nonsustained VT for 10 beats was noted placed on the senna PERRL metoprolol which have been held secondary to hypotension which may be directly because of the Ativan he is getting for alcohol withdrawal Objective - Vital Signs Vital signs: Vital Signs Temp 98.1 F 05/31/23 08:00 Pulse 94 05/31/23 11:33 Resp 18 05/31/23 11:00 BP 83/62 05/31/23 11:00 Pulse Ox 95 05/31/23 11:00 FiO2 Intake & Output 05/30/23 05/31/23 05/31/23 18:59 06:59 18:59 Intake Total 1190 280 350 Output Total 500 1100 180 Balance 690 -820 170 Weight 68.039 kg 97.3 kg Intake: IV 770 280 Sodium Chloride 0.9% 1, 770 280 000 ml In Empty Bag 1 bag @ 1 ML/KG/HR 68.039 mls/ hr IV .[id number] [facility] Rx#: [id number] Intake, IV Titration 70 Amount Sodium Chloride 0.9% 1, 70 000 ml In Empty Bag 1 bag @ 1 ML/KG/HR 68.039 mls/ hr IV .[id number] [facility] Rx#: [id number] Oral 350 350 Output: Urine 500 1100 180 - Exam General: [Patient awake, alert and oriented times 3. Patient in no acute distress.] HEENT: [PERRL. EOMI. No pharyngeal erythema or exudate.] Neck: [No adenopathy.] Cardiac: [Heart regular in rate and rhythm. No S3. No S4. No clicks, rubs. No murmur.] Lungs: [Clear to auscultation bilaterally.] Abdomen: [No mass. No organomegaly. Bowel sounds presnt and normoactive in all 4 quadrants.] Extremes: [No edema no cyanosis no claudication normal pulses] : Normal male genitalia Musculoskeletal: [No joint erythema, edema or tenderness.] Skin: [No rash.] Neurologic: [No lateralizing deficits. CN II - XII grossly intact.] Lymphatic: [No adenopathy.] - Labs CBC & Chem 7: 05/31/23 07:42 05/31/23 07:42 Labs: Abnormal Lab Results - Last 24 Hours (Table) 05/31/23 05/31/23 Range/Units 07:42 07:42 RBC 3.79 L (4.30-5.90) m/uL Hct 38.2 L (39.0-53.0) % MCV 100.9 H (80.0-100.0) fL MCH 35.1 H (25.0-35.0) pg Sodium 125 L (137-145) mmol/L Carbon Dioxide 17 L (22-30) mmol/L Glucose 145 H (74-99) mg/dL AST 113 H (17-59) U/L Total Protein 5.8 L (6.3-8.2) g/dL Albumin 3.1 L (3.5-5.0) g/dL Assessment and Plan (1) Alcoholic liver disease Current Visit: Yes Status: Acute Code(s): K70.9 - ALCOHOLIC LIVER DISEASE, UNSPECIFIED SNOMED Code(s): 86021805 (2) Chronic obstructive pulmonary disease Current Visit: Yes Status: Acute Code(s): J44.9 - CHRONIC OBSTRUCTIVE PULMONARY DISEASE, UNSPECIFIED SNOMED Code(s): 71062032 (3) Congestive heart failure Current Visit: Yes Status: Acute Code(s): I50.9 - HEART FAILURE, UNSPECIFIED SNOMED Code(s): 04493927 (4) STEMI (ST elevation myocardial infarction) Current Visit: Yes Status: Acute Code(s): I21.3 - ST ELEVATION (STEMI) MYOCARDIAL INFARCTION OF [facility] SITE SNOMED Code(s): 00625909 Plan: cardiology consultation underwent cardiac catheterization Angioplasty with stent placement Daily alcohol use abuseCiWA protocol Nicotine patch Further orders to follow Time with Patient: Greater than 30
[2023-05-31] MEDS: SYMBICORT 160-4.5 MCG INHALER INHALATION SCH (21:17)
[2023-06-01] MEDS: ZOLPIDEM 5 MG TAB PO PRN (00:02)
[2023-06-01] MEDS: LORazepam 2 MG/ML INJ IV PRN (01:43)
[2023-06-01] MEDS: DEXMEDETOMIDINE/0.9% NACL(PMX) 400 MCG in EMPTY BAG 1 BAG IV SCH (04:28)
[2023-06-01 04:29] LABS: Glucose,Whole Blood 117 mg/dL (70-110)
[2023-06-01 05:07] LABS: Basophils % (A) 0 %; Eosinophils # (A) 0.1 k/uL (0-0.7); Eosinophils % (A) 1 %; HCT 38.1 % (39.0-53.0); HGB 13.3 gm/dL (13.0-17.5); Lymphocytes # (A) 0.7 k/uL (1.0-4.8); Lymphocytes % (A) 6 %; MCH 34.1 pg (25.0-35.0); MCHC 34.8 g/dL (31.0-37.0); MCV 97.8 fL (80.0-100.0); Monocytes # (A) 0.5 k/uL (0-1.0); Monocytes % (A) 4 %; Neutrophils # (A) 10.2 k/uL (1.3-7.7); Neutrophils % (A) 88 %; Platelet Count 216 k/uL (150-450); WBC 11.6 k/uL (3.8-10.6)
[2023-06-01] MEDS ORDERED: NALOXONE 0.4 MG/ML 1 ML VIAL IV PRN (05:16)
[2023-06-01 05:39] LABS: African American GFR (CKD) >90 (>60 ml/min/1.73 sqM); Anion Gap 5 mmol/L; Blood Urea Nitrogen 11 mg/dL (9-20); Carbon Dioxide 18 mmol/L (22-30); Chloride 98 mmol/L (98-107); Glucose 104 mg/dL (74-99); Non-African American GFR(CKD) >90 (>60 ml/min/1.73 sqM); Potassium 4.3 mmol/L (3.5-5.1); Sodium 121 mmol/L (137-145)
[2023-06-01] MEDS: FUROSEMIDE 10 MG/ML 2 ML VIAL IV STA (05:45)
--- NOTE | 2023-06-01 07:11 | P.CNPUL ---
History of Present Illness Consult date: 06/01/23 Requesting physician: Sixto Cortes Jr Reason for consult: other (Alcohol withdrawal; ICU management) Chief complaint: Shortness of breath History of present illness: I am seeing this patient in new consultation today June 01, 2023 in the intensive care unit for acute alcohol withdrawal, delirium tremens. He was admitted back on May [address] elevation ID. Patient is a 63-year- old white male with past medical history significant for COPD, alcoholism, hepatitis C, and current everyday smoker. Patient presented to [facility] ER back on May 30 complaining mostly of progressively worsening shortness of breath over the preceding [address] elevation in the anterior lateral leads. Troponin was elevated 8. He was taken to the cardiac [employer], and received 2 overlapping stents to the diagonal and PCI/stenting to the mid LAD. Patient had already been in the ICU as a 3 south overflow, we were consulted early this morning for acute alcohol withdrawal/delirium tremens. Patient is a known alcoholic, he drinks around 20, 12 ounce beers per day. He is currently oriented to self only, and most of this information was taken from the medical record. His extremities are shaking. He is diaphoretic. He has pulled all his clothes off. Last recorded CIWA score was 17. He has received a total of 5 mg of Ativan within the last couple hours. He has also been receiving Valium 2 mg p.o. 3 times daily. Patient has been started on Precedex, which is currently infusing at 0.4 mcg/kg/hr. He is still trying to get out of bed, and is frequently pulling off his nasal cannula. He has had increased oxygen demands. He is currently on a 10 L high flow nasal cannula. Heart rhythm appears sinus tachycardia on bedside monitor. Patient reportedly had a brief episode of nonsustained vtach earlier this admission. Blood pressure is normotensive. A stat chest x-ray was done this morning which shows cardiomegaly, central pulmonary vascular congestion and interstitial prominence. There are also possible superimposed bilateral lower lobe infiltrates. CBC from yesterday was unremarkable. No leukocytosis. BMP from yesterday is a sodium of 125, potassium 4.5, chloride 99, serum bicarb 17, BUN 11, creatinine 0.82, glucose 145. Normal saline is infusing at 68 mL/h. Patient will be treated in the intensive care unit for his alcohol withdrawal. Review of Systems ROS unobtainable: due to mental status Past Medical History Past Medical History: Coronary Artery Disease (CAD), COPD, Dementia, GERD/Reflux, Hyperlipidemia, Hypertension, Liver Disease, Myocardial Infarction (ID) Additional Past Medical History / Comment(s): arthristis, Hepatitis C,alcoholic liver disease Last Myocardial Infarction Date:: t History of Any Multi-Drug Resistant Organisms: None Reported Past Surgical History: Heart Catheterization, Heart Catheterization With Stent, Orthopedic Surgery Additional Past Surgical History / Comment(s): right hand Past Anesthesia/Blood Transfusion Reactions: No Reported Reaction Date of Last Stent Placement:: 05/30/23 Past Psychological History: Anxiety, Depression Smoking Status: Current every day smoker Past Alcohol Use History: Abuse Past Drug Use History: None Reported - Past Family History Father History Unknown: Yes Family Medical History: Coronary Artery Disease (CAD) Additional Family Medical History / Comment(s): Lupus Medications and Allergies Home Medications Medication Instructions Recorded Confirmed Type Albuterol Inhaler [Ventolin Hfa 1 - 2 puff INHALATION RT-Q6H PRN 09/28/18 05/30/23 History Inhaler] Aspirin EC [Ecotrin Low Dose] 81 mg PO DAILY 09/28/18 05/30/23 History Montelukast [Singulair] 10 mg PO HS 09/28/18 05/30/23 History lisinopriL [Zestril] 5 mg PO DAILY 09/28/18 05/30/23 History Fluticasone/Umeclidin/Vilanter 1 puff INHALATION RT-DAILY 05/30/23 05/30/23 History [Trelegy Ellipta 100-62.5-25] Omeprazole 20 mg PO DAILY 05/30/23 05/30/23 History Pravastatin Sodium [Pravachol] 10 mg PO HS 05/30/23 05/30/23 History Tiotropium [place] [Spiriva] 18 mcg INHALATION RT-DAILY 05/30/23 05/30/23 History Allergies Allergy/AdvReac Type Severity Reaction Status Date / Time No Known Allergies Allergy Verified 05/30/23 12:13 Physical Exam Vitals: Vital Signs Temp Pulse Pulse Resp BP BP Pulse Ox 06/01/23 00:00 98.5 F 100 24 106/79 89 L 02/04/24 21:27 99 05/31/23 21:19 98 05/31/23 20:00 98.1 F 92 17 99/74 88 L 05/31/23 16:00 37.9 F L 96 22 109/82 93 L 05/31/23 15:52 93 05/31/23 15:41 92 05/31/23 15:00 88 17 98/73 92 L 05/31/23 14:00 88 17 95/72 92 L 05/31/23 13:00 90 23 93/74 93 L 05/31/23 12:00 97.5 F L 90 25 H 91/68 94 L 05/31/23 11:33 94 05/31/23 11:23 93 05/31/23 11:00 89 18 83/62 95 05/31/23 10:00 76 22 87/66 94 L 05/31/23 09:00 85 12 94/67 97 05/31/23 08:18 94 05/31/23 08:09 92 05/31/23 08:00 98.1 F 92 14 94/67 92 L 05/31/23 07:00 90 16 104/81 85 L 05/31/23 06:00 89 22 104/71 93 L Intake and Output 05/31/23 05/31/23 06/01/23 14:59 22:59 06:59 Intake Total 802 961 8474 Output Total 680 200 600 Balance -94 140 2104 Intake: IV 136 340 544 Sodium Chloride 0.9% 1, 136 340 544 000 ml In Empty Bag 1 bag @ 1 ML/KG/HR 68.039 mls/ hr IV .[id number] [facility] Rx#: [id number] Oral 450 2160 Output: Urine 680 200 600 Other: Voiding Method Urinal Urinal GENERAL EXAM: Anxious/restless, 63-year-old white male, diaphoretic, resting tremor HEAD: Normocephalic and atraumatic EYES: Normal reaction of pupils, equal size. NOSE: Clear with pink turbinates. THROAT: No erythema or exudates. NECK: No masses, no JVD. CHEST: No chest wall deformity. LUNGS: Equal air entry bibasilar inspiratory crackles and mild end expiratory wheezes. On 10 L high flow nasal cannula. No conversational dyspnea or accessory muscle use.. CVS: S1 and S2 normal with no audible murmur, regular rhythm. No extra heart sounds ABDOMEN: No hepatosplenomegaly, active bowel sounds, no guarding or rigidity. SPINE: No scoliosis or deformity SKIN: No rashes CENTRAL NERVOUS SYSTEM: Anxious/restless, oriented to self only, requires frequent redirection, no focal deficits, tone is normal in all 4 extremities. EXTREMITIES: There is no peripheral edema, clubbing, or cyanosis. Peripheral pulses are intact. Results - Laboratory Findings CBC and BMP: 06/01/23 04:44 06/01/23 04:44 PT/INR, D-dimer PT 9.9 sec (10.0-12.5) L 05/30/23 02:48 INR 0.9 (<1.2) 05/30/23 02:48 D-Dimer 1.03 mg/L FEU (<0.60) H 05/30/23 02:48 Abnormal lab findings: Abnormal Labs 05/30/23 05/30/23 05/30/23 02:48 02:48 02:48 RBC Hct MCV 102.3 H MCH PT 9.9 L D-Dimer 1.03 H Sodium 126 L Carbon Dioxide 17 L BUN 4 L Glucose 178 H POC Glucose (mg/dL) Plasma Lactic Acid Donnell Calcium 8.0 L AST Troponin I Total Protein Albumin 05/30/23 05/30/23 05/30/23 02:48 02:48 05:55 RBC Hct MCV MCH PT D-Dimer Sodium Carbon Dioxide BUN Glucose POC Glucose (mg/dL) 124 H Plasma Lactic Acid Donnell 4.5 H* Calcium AST Troponin I 8.030 H* Total Protein Albumin 05/30/23 05/30/23 05/31/23 07:01 10:16 07:42 RBC 3.79 L Hct 38.2 L MCV 100.9 H MCH 35.1 H PT D-Dimer Sodium Carbon Dioxide BUN Glucose POC Glucose (mg/dL) Plasma Lactic Acid Donnell 2.1 H* 2.5 H* Calcium AST Troponin I Total Protein Albumin 05/31/23 06/01/23 07:42 04:27 RBC Hct MCV MCH PT D-Dimer Sodium 125 L Carbon Dioxide 17 L BUN Glucose 145 H POC Glucose (mg/dL) 117 H Plasma Lactic Acid Donnell Calcium AST 113 H Troponin I Total Protein 5.8 L Albumin 3.1 L - Diagnostic Findings Chest x-ray: image reviewed Assessment and Plan Assessment: ST elevation myocardial infarction, status post PCI/stenting to the mid LAD and two overlapping stents to the diagonal branch on 05/30/23. Coronary artery disease Acute alcohol withdrawal delirium tremens Acute hypoxemic respiratory failure, secondary to above Beer potomania Alcoholism Chronic obstructive pulmonary disease, stable Chronic ongoing tobacco dependence Hyperlipidemia History of hypertension History of hepatitis C Plan: Patient's medications, labs, chest x-ray reviewed Patient will be monitored in the intensive care unit, currently on Precedex infusion for withdrawal symptoms refractory to as needed benzodiazepines Continue Vitamin B1 supplementation Continue seizure precautions. There has been an increased oxygen demand, currently on 10 L high flow nasal cannula. Patient has been borderline hypotensive after his heart catheterization, fluids were continued at 68 MLS per hour. Blood pressure now normotensive. Chest x-ray shows findings consistent with CHF, with superimposed infectious process felt to be less likely at this time. Echocardiogram is pending. Fluids decreased to KVO. Give Lasix 20 mg once now. Empiric antibiotics added by admitting. Check procalcitonin level. Maintenance COPD medications have been restarted including Symbicort twice daily and DuoNebs [id number]. Continue beta-blockade and dual antiplatelet medications. Protonix for GI prophylaxis. Will continue to follow, and further recommendations are forthcoming I have personally seen and examined the patient, performed the documentation and the assessment and plan as written. Number of minutes spent on the visit:20 Time with Patient: Greater than 30
--- NOTE | 2023-06-01 08:14 | XR ---
EXAMINATION TYPE: XR chest 1V portable DATE OF EXAM: 06/01/2023 HISTORY: Shortness of breath. COMPARISON: May 30, 2023 TECHNIQUE: Single view of the chest is submitted. FINDINGS: Demonstrated are scattered senescent parenchymal change. Continued pulmonary venous congestion with scattered infiltrates and small effusions. The heart is stable. Hilar and mediastinal structures are within normal limits. Degenerative changes are seen of the dorsal spine. IMPRESSION: 1. Continued pulmonary venous congestion with scattered infiltrates and small effusions.
[2023-06-01] MEDS: guaiFENesin 600 MG TABLET.ER PO SCH (08:20)
[2023-06-01] MEDS: AMOXIC-POT CLAV 875-125MG 1 EACH TAB PO SCH (08:27)
[2023-06-01] MEDS: IPRATROPIUM-ALBUTEROL 3 ML NEB INHALATION SCH (08:54)
[2023-06-01] MEDS: FUROSEMIDE 10 MG/ML 2 ML VIAL IV SCH (10:16)
[2023-06-01] MEDS: PIPERACILLIN-TAZOBACTAM 3.375 GM in SODIUM CHLORIDE 0.9% 100 ML IVPB SCH (10:16)
--- NOTE | 2023-06-01 10:35 | CA ---
Transthoracic Echo Report Name: Ganga Anderson Age: 63 Gender: M : 1960 Exam Date: 06/01/2023 07:39 Exam Location: [facility] Ht (in): 70 Wt (lb): 214 Ordering Physician: Anup Lee DO Attending/Referring Phys: Nurse Practitioner Adult Melina Lee RDCS Procedure CPT: Indications: re: LV function Cardiac Hx: CAD Technical Quality: Fair Contrast 1: Definity Total Dose (mL): 3 Contrast 2: Total Dose (mL): MEASUREMENTS (Male / Female) Normal Values 2D ECHO LV Diastolic Diameter PLAX 6.0 cm 4.2 - 5.9 / 3.9 - 5.3 cm LV Systolic Diameter PLAX 4.8 cm IVS Diastolic Thickness 0.9 cm 0.6 - 1.0 / 0.6 - 0.9 cm LVPW Diastolic Thickness 0.8 cm 0.6 - 1.0 / 0.6 - 0.9 cm LV Relative Wall Thickness 0.3 RV Internal Dim ED PLAX 2.3 cm LA Systolic Diameter LX 3.6 cm 3.0 - 4.0 / 2.7 - 3.8 cm LV Diastolic Volume MOD BP 130.7 cm??? 67 - 155 / 56 - 104 cm??? LV Systolic Volume MOD BP 91.2 cm??? 22 - 58 / 19 - 49 cm??? LV Ejection Fraction MOD BP 30.2 % >= 55 % LV Cardiac Index MOD BP 2016.1 cm???/min???m??? LV Diastolic Volume MOD 4C 130.8 cm??? LV Systolic Volume MOD 4C 87.3 cm??? LV Ejection Fraction MOD 4C 33.3 % LV Cardiac Index MOD 4C 2217.5 cm???/min???m??? LV Diastolic Length 4C 9.1 cm LV Systolic Length 4C 8.9 cm LV Diastolic Volume MOD 2C 118.2 cm??? LV Systolic Volume MOD 2C 91.6 cm??? LV Ejection Fraction MOD 2C 22.4 % LV Cardiac Index MOD 2C 1352.3 cm???/min???m??? LV Diastolic Length 2C 8.2 cm LV Systolic Length 2C 8.3 cm LA Volume 68.8 cm??? 18 - 58 / 22 - 52 cm??? LA Volume Index 31.1 cm???/m??? 16 - 28 cm???/m??? M-MODE Aortic Root Diameter MM 3.1 cm MV E Point Septal Separation 1.5 cm AV Cusp Separation MM 1.6 cm DOPPLER AV Peak Velocity 117.9 cm/s AV Peak Gradient 5.6 mmHg AI Peak Velocity 255.8 cm/s AI Peak Gradient 26.2 mmHg AI Pressure Half Time 660.2 ms MV Area PHT 4.2 cm??? Mitral E Point Velocity 57.9 cm/s Mitral A Point Velocity 71.4 cm/s Mitral E to A Ratio 0.8 MV Deceleration Time 178.7 ms MV E' Velocity 5.1 cm/s Mitral E to MV E' Ratio 11.4 TR Peak Velocity 269.0 cm/s TR Peak Gradient 28.9 mmHg Right Ventricular Systolic Press 33.9 mmHg FINDINGS Left Ventricle Left ventricular ejection fraction is estimated at 25-30 %. Severely increased left ventricular systolic volume. Severly decreased left ventricular ejection fraction. Left ventricular wall thickness normal. Mid lateral and apical hypokinesis, apical septum hypokinesis, apical anterior and inferior hypokinesis. Right Ventricle Normal right ventricular size. Right ventricular systolic pressure within normal limits. Right Atrium Normal right atrial size. Left Atrium Mildly increased left atrial volume. Mitral Valve Structurally normal mitral valve. Moderate mitral regurgitation. Aortic Valve Trileaflet aortic valve. Mild aortic regurgitation. Thickened aortic valve without stenosis. Tricuspid Valve Structurally normal tricuspid valve. Mild tricuspid regurgitation. Pulmonic Valve Structurally normal pulmonic valve. No pulmonic regurgitation. Pericardium No pericardial effusion. Aorta Normal size aortic root and proximal ascending aorta. CONCLUSIONS 1. Severely impaired left ventricle systolic function with segmental wall motion abnormality 2. Moderate mitral with mild tricuspid regurgitation and mild aortic regurgitation 3. No evidence of pulmonary hypertension Previewed by: Dr. Leslie Ball MD (Electronically Signed) Final Date: 01 June 2023 10:34
--- NOTE | 2023-06-01 10:46 | PN ---
PROGRESS NOTE SUBJECTIVE: This is a 63-year-old gentleman, who presented to the hospital with what appears to be with history of hypertension; hyperlipidemia; increasing shortness of breath; and went on to have a cardiac cath, which revealed a significant lesion in the LAD and diagonal, underwent bifurcation stenting. He is doing well this morning in terms of being alert, but seems to be short of breath. Echo revealed ejection fraction of probably about 25% with a global decrease in contractility. The patient is also an alcoholic, drinks more than 15 beers a day. He is currently in a sinus rhythm. His renal function appears to be fairly stable. He is on a small dose of lisinopril as well. I am recommending that I will increase his Lasix to 20 mg q.12 hours and if his blood pressure tolerates, we will put him on a small dose of losartan at 12.5 mg at bedtime provided the systolic is more than 100, continue metoprolol for now. The patient appears to be in mild heart failure. OBJECTIVE: NECK: JVD is 1 cm. No carotid bruit. VITAL SIGNS: Currently, blood pressure is about 108 systolic. HEART: S1 and S2 heard normally. No significant rub or murmur. LUNGS: Reveal bilateral fine rales. ABDOMEN: Soft. LOWER EXTREMITIES: Reveal diminished pulses. The patient is restless. He has alcoholism. A combination of ischemic and nonischemic cardiomyopathy with a complex bifurcation stenting of LAD and diagonal. Prognosis remains guarded. Small dose of Lasix and losartan. See how he does. MMODL / IJN: [id number] /
--- NOTE | 2023-06-01 11:11 | P.PN ---
Subjective Progress Note Date: 06/01/23 H&P Date: 05/30/23 Chief Complaint: chest pain patient presents to the emergency room early this morning with chest pain and subsequently went to the catheter lab with Dr. Anup Lee where he underwent a cardiac catheterization secondary to a STEMI, patient underwent angioplasty with 3 stents placed and 2 vessel, I evaluated the patient this morning he was his responses were limited secondary to persistent residual anesthetic, he denied chest pain at this time denied shortness of breath at this time denied nausea and vomiting at this time 05/31/23 Patient seen and examined, does not complain of chest pain. Underwent successful stenting of the bifurcation of the LAD diagonal branch per Dr. Lee cardiology, currently going through withdrawals drinks approximately 8- 20 beers a day he is on the CIwa protocol, also has nicotine patch is a chronic smoker a brief run of nonsustained VT for 10 beats was noted placed on the senna PERRL metoprolol which have been held secondary to hypotension which may be dire ctly because of the Ativan he is getting for alcohol withdrawal. 06/01/2023 DTs, maintained on Precedex drip, recent CIWA score 15. Tachypneic, blood pressure soft, earlier required 10 L high flow nasal cannula currently weaned down to 3 L nasal cannula maintaining O2 sats in the mid 90s. [place] rdiogram reporting severely impaired left ventricular systolic function with segmental wall motion abnormality, EF 25 to 30%, moderate mitral with mild tricuspid regurgitation and mild aortic regurgitation, no evidence of pulmonary hypertension. Chest x-ray reported continued pulmonary vascular congestion with scattered infiltrates and small effusions. Objective - Vital Signs Vital signs: Vital Signs Temp 98.7 F 06/01/23 08:00 Pulse 75 06/01/23 11:00 Resp 25 H 06/01/23 11:00 BP 86/63 06/01/23 11:00 Pulse Ox 96 06/01/23 11:00 FiO2 Intake & Output 05/31/23 06/01/23 06/01/23 18:59 06:59 18:59 Intake Total 654 2984.109 561.989 Output Total 266 316 2152 Balance -26 2184.109 -938.011 Weight 91.5 kg Intake: IV 204 816 Sodium Chloride 0.9% 1, 204 816 000 ml In Empty Bag 1 bag @ 1 ML/KG/HR 68.039 mls/ hr IV .[id number] [facility] Rx#: [id number] Intake, IV Titration 8.109 61.989 Amount Dexmedetomidine/0.9% NaCl 8.109 61.989 (Pmx) 400 mcg In Empty Bag 1 bag @ 0.2 MCG/KG/HR 4.865 mls/hr IV .[id number] [facility] Rx#:[id number] Oral 450 2160 500 Output: Urine 874 [id number] 5692 Other: Voiding Method Urinal - Exam General:Alert and oriented times 1, diaphoretic, resting tremors, active DTs HEENT: [PERRL. Conjunctiva normal. Neck: Supple, no JVD Cardiac: [Heart regular in rate and rhythm. No murmur auscultated.] Lungs: equal air entry, expiratory wheezing, bibasilar crackles Abdomen: Soft, nontender, no guarding, no rigidity, positive bowel sounds Extremes: [No edema no cyanosis no claudication normal pulses] Skin: [No rash.] Neurologic: [Unable to evaluate at this time] - Labs CBC & Chem 7: 06/01/23 04:44 06/01/23 04:44 Labs: Abnormal Lab Results - Last 24 Hours (Table) 06/01/23 06/01/23 06/01/23 Range/Units 04:27 04:44 04:44 WBC 11.6 H (3.8-10.6) k/uL RBC 3.90 L (4.30-5.90) m/uL Hct 38.1 L (39.0-53.0) % Neutrophils # 10.2 H (1.3-7.7) k/uL Lymphocytes # 0.7 L (1.0-4.8) k/uL Sodium 121 L (137-145) mmol/L Carbon Dioxide 18 L (22-30) mmol/L Glucose 104 H (74-99) mg/dL POC Glucose (mg/dL) 117 H (70-110) mg/dL Calcium 8.0 L (8.4-10.2) mg/dL Assessment and Plan Assessment: (1) Alcoholic liver disease Current Visit: Yes Status: Acute Code(s): K70.9 - ALCOHOLIC LIVER DISEASE, UNSPECIFIED SNOMED Code(s): 15239047 (2) Acute hypoxic respiratory failure secondary to DTs, STEMI (3)Chronic obstructive pulmonary disease Current Visit: Yes Status: Acute Code(s): J44.9 - CHRONIC OBSTRUCTIVE PULMONARY DISEASE, UNSPECIFIED SNOMED Code(s): 72179018 (4) Congestive heart failure, systolic dysfunction Current Visit: Yes Status: Acute Code(s): I50.9 - HEART FAILURE, UNSPECIFIED SNOMED Code(s): 47062107 (5) STEMI (ST elevation myocardial infarction) Current Visit: Yes Status: Acute Code(s): I21.3 - ST ELEVATION (STEMI) MYOCARDIAL INFARCTION OF [facility] SITE SNOMED Code(s): 20434489 (6) nonsustained V.T. (7) hypotension suspect exacerbated by CIWA protocol (8) ongoing nicotine dependence (9) history of hepatitis C Plan: Continue on current medication regimen, monitoring and symptomatic treatment. Dual antiplatelet therapy, beta-praveen, maintain CIWA protocol. Procalcitonin level pending. Empiric antibiotics. The impression and plan of care has been dictated as directed. : I performed a history and examination of this patient, discussed the same with the dictator. I agree with the dictator's note ,documented as a scribe. Any additional findings or plans will be noted.
--- NOTE | 2023-06-01 13:30 | P.CNPUL ---
History of Present Illness Consult date: 06/01/23 Chief complaint: Delirium tremens History of present illness: 63-year-old male patient, currently being seen in the intensive care unit post acute non-ST segment elevation myocardial infarction. The patient was admitted on 05/30/2023 because of progressive shortness of breath over several days. Troponins peaked at 8. Patient underwent cardiac catheterization and he received 2 overlapping stents involving the diagonal and PCI involving the mid LAD. The patient is a chronic alcoholic and he drinks around 10 beers on a daily basis. Overnight, the patient became progressively more agitated than restless and he went into alcohol withdrawal with delirium tremens. Based on that, the patient was started on Precedex which is currently running at 1 mcg/kg/h. He is currently on oxygen 3 L/min nasal cannula. Chest x-ray was showing increased pulm vascular marking and increased consolidation of the right lung base and aspiration was suspected. The patient was already on Augmentin orally and I switched her to IV Zosyn as the patient is unable to swallow at this point in time. Precedex dose is being titrated accordingly. IV fluids are currently acceptable. The patient was treated with a dose of Lasix with adequate urine output and some interval improvement in the patient's oxygenation. The patient is known to have COPD, hypertension, chronic hepatitis C and chronic liver disease secondary to hepatitis C and alcoholism. He has received a total of 5 mg of Ativan within the last couple hours. He has also been receiving Valium 2 mg p.o. 3 times daily. Patient has been started on Precedex. The blood work from today shows a WBC count of 11.6, hemoglobin 15.3 and a platelet count of 216. Sodium level is down to 121. BUN is 11 with a creatinine of 0.5 and a potassium level is at 4.3. Serum bicarb is at 18 with an anion gap of 5. Procalcitonin level is at 0.1. LFTs are showing an AST of 36, ALT of 63 and a total bilirubin is at 0.9. Review of Systems ROS unobtainable: due to mental status Past Medical History Past Medical History: Coronary Artery Disease (CAD), COPD, Dementia, GERD/Reflux, Hyperlipidemia, Hypertension, Liver Disease, Myocardial Infarction (HI) Additional Past Medical History / Comment(s): arthristis, Hepatitis C,alcoholic liver disease Last Myocardial Infarction Date:: t History of Any Multi-Drug Resistant Organisms: None Reported Past Surgical History: Heart Catheterization, Heart Catheterization With Stent, Orthopedic Surgery Additional Past Surgical History / Comment(s): right hand Past Anesthesia/Blood Transfusion Reactions: No Reported Reaction Date of Last Stent Placement:: 05/30/23 Past Psychological History: Anxiety, Depression Smoking Status: Current every day smoker Past Alcohol Use History: Abuse Past Drug Use History: None Reported - Past Family History Father History Unknown: Yes Family Medical History: Coronary Artery Disease (CAD) Additional Family Medical History / Comment(s): Lupus Medications and Allergies Home Medications Medication Instructions Recorded Confirmed Type Albuterol Inhaler [Ventolin Hfa 1 - 2 puff INHALATION RT-Q6H PRN 09/28/1807/18 History Inhaler] Aspirin EC [Ecotrin Low Dose] 81 mg PO DAILY 09/28/18 05/30/23 History Montelukast [Singulair] 10 mg PO HS 09/28/18 05/30/23 History lisinopriL [Zestril] 5 mg PO DAILY 09/28/18 05/30/23 History Fluticasone/Umeclidin/Vilanter 1 puff INHALATION RT-DAILY 05/30/23 05/30/23 History [Trelegy Ellipta 100-62.5-25] Omeprazole 20 mg PO DAILY 05/30/23 05/30/23 History Pravastatin Sodium [Pravachol] 10 mg PO HS 05/30/23 05/30/23 History Tiotropium [place] [Spiriva] 18 mcg INHALATION RT-DAILY 05/30/23 05/30/23 History Allergies Allergy/AdvReac Type Severity Reaction Status Date / Time No Known Allergies Allergy Verified 05/30/23 12:13 Physical Exam Vitals: Vital Signs Temp Pulse Pulse Resp BP BP Pulse Ox 06/01/23 12:00 97.1 F L 68 28 H 91/65 90 L 06/01/23 11:28 71 18 06/01/23 11:20 73 18 06/01/23 11:00 75 25 H 86/63 96 06/01/23 10:00 73 26 H 84/65 95 06/01/23 09:00 78 14 83/54 94 L 06/01/23 08:00 98.7 F 75 12 91/65 96 06/01/23 07:00 75 10 L 105/76 100 06/01/23 04:00 98.0 F 111 H 40 H 112/75 87 L 06/01/23 00:00 98.5 F 100 24 106/79 89 L 05/31/23 21:27 99 05/31/23 21:19 98 05/31/23 20:00 98.1 F 92 17 99/74 88 L 05/31/23 16:00 37.9 F L 96 22 109/82 93 L 05/31/23 15:52 93 05/31/23 15:41 92 05/31/23 15:00 88 17 98/73 92 L 05/31/23 14:00 88 17 95/72 92 L Intake and Output 05/31/23 06/01/23 06/01/23 22:59 06:59 14:59 Intake Total 340 2712.109 619.153 Output Total 610 535 1970 Balance 140 2112.109 -1255.847 Intake: IV 340 544 Sodium Chloride 0.9% 1, 340 544 000 ml In Empty Bag 1 bag @ 1 ML/KG/HR 68.039 mls/ hr IV .[id number] [facility] Rx#: [id number] Intake, IV Titration 8.109 119.153 Amount Dexmedetomidine/0.9% NaCl 8.109 119.153 (Pmx) 400 mcg In Empty Bag 1 bag @ 0.2 MCG/KG/HR 4.865 mls/hr IV .[id number] [facility] Rx#:[id number] Oral 2160 500 Output: Urine 684 079 9620 Other: Voiding Method Urinal Urinal Urinal Weight 91.5 kg GENERAL EXAM: Anxious/restless, 63-year-old white male, patient is currently on 3 days of oxygen nasal cannula, delirious, comfortable without any agitation on Precedex. HEAD: Normocephalic and atraumatic EYES: Normal reaction of pupils, equal size. NOSE: Clear with pink turbinates. THROAT: No erythema or exudates. NECK: No masses, no JVD. CHEST: No chest wall deformity. LUNGS: Equal air entry bibasilar inspiratory crackles and mild end expiratory wheezes. No conversational dyspnea or accessory muscle use.. CVS: S1 and S2 normal with no audible murmur, regular rhythm. No extra heart sounds ABDOMEN: No hepatosplenomegaly, active bowel sounds, no guarding or rigidity. SPINE: No scoliosis or deformity SKIN: No rashes CENTRAL NERVOUS SYSTEM: Anxious/restless, oriented to self only, requires frequent redirection, no focal deficits, tone is normal in all 4 extremities. EXTREMITIES: There is no peripheral edema, clubbing, or cyanosis. Peripheral pulses are intact. Results - Laboratory Findings CBC and BMP: 06/01/23 04:44 06/01/23 04:44 PT/INR, D-dimer PT 9.9 sec (10.0-12.5) L 05/30/23 02:48 INR 0.9 (<1.2) 05/30/23 02:48 D-Dimer 1.03 mg/L FEU (<0.60) H 05/30/23 02:48 Abnormal lab findings: Abnormal Labs 05/30/23 05/30/23 05/30/23 02:48 02:48 02:48 WBC RBC Hct MCV 102.3 H MCH Neutrophils # Lymphocytes # PT 9.9 L D-Dimer 1.03 H Sodium 126 L Carbon Dioxide 17 L BUN 4 L Glucose 178 H POC Glucose (mg/dL) Plasma Lactic Acid Donnell Calcium 8.0 L AST Troponin I Total Protein Albumin Procalcitonin 05/30/23 05/30/23 05/30/23 02:48 02:48 05:55 WBC RBC Hct MCV MCH Neutrophils # Lymphocytes # PT D-Dimer Sodium Carbon Dioxide BUN Glucose POC Glucose (mg/dL) 124 H Plasma Lactic Acid Donnell 4.5 H* Calcium AST Troponin I 8.030 H* Total Protein Albumin Procalcitonin 05/30/23 05/30/23 05/31/23 07:01 10:16 07:42 WBC RBC 3.79 L Hct 38.2 L MCV 100.9 H MCH 35.1 H Neutrophils # Lymphocytes # PT D-Dimer Sodium Carbon Dioxide BUN Glucose POC Glucose (mg/dL) Plasma Lactic Acid Donnell 2.1 H* 2.5 H* Calcium AST Troponin I Total Protein Albumin Procalcitonin 05/31/23 06/01/23 06/01/23 07:42 04:27 04:44 WBC 11.6 H RBC 3.90 L Hct 38.1 L MCV MCH Neutrophils # 10.2 H Lymphocytes # 0.7 L PT D-Dimer Sodium 125 L Carbon Dioxide 17 L BUN Glucose 145 H POC Glucose (mg/dL) 117 H Plasma Lactic Acid Donnell Calcium AST 113 H Troponin I Total Protein 5.8 L Albumin 3.1 L Procalcitonin 06/01/23 06/01/23 04:44 04:44 WBC RBC Hct MCV MCH Neutrophils # Lymphocytes # PT D-Dimer Sodium 121 L Carbon Dioxide 18 L BUN Glucose 104 H POC Glucose (mg/dL) Plasma Lactic Acid Donnell Calcium 8.0 L AST Troponin I Total Protein Albumin Procalcitonin 0.10 H - Diagnostic Findings Chest x-ray: image reviewed Assessment and Plan Plan: Acute hypoxic respiratory failure and the patient is currently on 3 L of oxygen by nasal cannula. Rule out underlying right lower lobe aspiration pneumonia. The patient also has increased interstitial markings bilaterally. Rule out underlying CHF. Patient is currently on Precedex Delirium tremens secondary to alcohol withdrawal, patient is alcoholic drinking approximately 10 beers a day. The patient was treated with Ativan and Valium and currently is on Precedex. Coronary artery disease Acute ST segment elevation myocardial infarction, postcardiac catheterization, CAD as described above including 40% ostial LAD, 99% ostial diagonal 1, 60-70% mid LAD stenosis, 50% circumflex, 100% mid RCA stenosis S/p PCI diagonal 1 with overlapping 2.0 x 26 mm and 2.0 x 18 mm [place] ANÍBAL, PCI proximal to mid LAD with 2.75 x 38mm [place] ANÍBAL, postdilated with a 3.0 noncompliant balloon CHF with elevated left sided filling pressures. Suspect underlying systolic heart failure. Echocardiogram still pending for now. Based on the primary reports, the patient has impaired LV function with an ejection fraction of 25 to 30%. Rule out underlying ischemic versus alcoholic cardiomyopathy. Hyponatremia, rule out beer potomania Alcoholism Chronic obstructive pulmonary disease, stable Chronic ongoing tobacco dependence Hyperlipidemia History of hypertension History of hepatitis C Plan Titrate oxygen flow to maintain saturation above 90% Keep the IV fluids at KVO Cover the patient with IV Zosyn as an empiric antibiotic coverage regarding the possibility of an aspiration Monitor sodium level Continue gentle diuresis with Lasix 20 mg IV every 12 hours Keep Precedex drip and titrate for the level of agitation Ativan as needed based on the protocol Continue aspirin Continue Brilinta once the patient is able to swallow DuoNeb nebulizer treatments [id number] Continue Symbicort Continue beta-blockers and the patient is currently on 12.5 mg of metoprolol twice a day High-dose statins Monitor mentation and will continue to follow. Time with Patient: Greater than 30
[2023-06-01 15:51] LABS: Glucose,Whole Blood 133 mg/dL (70-110)
[2023-06-01] MEDS: LOSARTAN 25 MG TAB PO SCH (23:43)
[2023-06-02 02:20] LABS: Glucose,Whole Blood 121 mg/dL (70-110)
[2023-06-02 04:39] LABS: HCT 40.3 % (39.0-53.0); HGB 13.8 gm/dL (13.0-17.5); MCH 34.2 pg (25.0-35.0); MCHC 34.2 g/dL (31.0-37.0); MCV 100.1 fL (80.0-100.0); Mean Platelet Volume 9.3; Platelet Count 214 k/uL (150-450); RBC 4.03 m/uL (4.30-5.90); RDW 12.3 % (11.5-15.5); WBC 7.6 k/uL (3.8-10.6)
[2023-06-02] MEDS: IPRATROPIUM-ALBUTEROL 3 ML NEB INHALATION PRN (04:53)
[2023-06-02 04:55] LABS: African American GFR (CKD) >90 (>60 ml/min/1.73 sqM); Anion Gap 9 mmol/L; Blood Urea Nitrogen 15 mg/dL (9-20); Calcium 8.1 mg/dL (8.4-10.2); Carbon Dioxide 17 mmol/L (22-30); Chloride 104 mmol/L (98-107); Glucose 107 mg/dL (74-99); Non-African American GFR(CKD) >90 (>60 ml/min/1.73 sqM); Potassium 4.1 mmol/L (3.5-5.1); Sodium 130 mmol/L (137-145)
--- NOTE | 2023-06-02 07:16 | XR ---
EXAMINATION TYPE: XR chest 1V portable DATE OF EXAM: 06/02/2023 5:40 AM CLINICAL INDICATION:Male, 63 years old with history of pulmonary edema with possible superimposed pna ; [facility] COMPARISON: Chest radiographs from 06/01/2023. TECHNIQUE: XR chest 1V portable Frontal view of the chest. FINDINGS: Lungs/Pleura: There is no evidence of pleural effusion, focal consolidation, or pneumothorax. Pulmonary vascularity: Pulmonary vascular congestion appears slightly increased. Heart/mediastinum: Cardiomediastinal silhouette is enlarged and stable. Musculoskeletal: No acute osseous pathology. Other findings: None IMPRESSION: Mildly increased pulmonary vascular congestion with similar cardiomegaly.
--- NOTE | 2023-06-02 10:49 | P.PN ---
Subjective Progress Note Date: 06/02/23 63-year-old male patient, currently being seen in the intensive care unit post acute non-ST segment elevation myocardial infarction. The patient was admitted on 05/30/2023 because of progressive shortness of breath over several days. Troponins peaked at 8. Patient underwent cardiac catheterization and he received 2 overlapping stents involving the diagonal and PCI involving the mid LAD. The patient is a chronic alcoholic and he drinks around 10 beers on a daily basis. Overnight, the patient became progressively more agitated than restless and he went into alcohol withdrawal with delirium tremens. Based on that, the patient was started on Precedex which is currently running at 1 mcg/kg/h. He is currently on oxygen 3 L/min nasal cannula. Chest x-ray was showing increased pulm vascular marking and increased consolidation of the right lung base and aspiration was suspected. The patient was already on Augmentin orally and I switched her to IV Zosyn as the patient is unable to swallow at t his point in time. Precedex dose is being titrated accordingly. IV fluids are currently acceptable. The patient was treated with a dose of Lasix with adequate urine output and some interval improvement in the patient's oxygenation. The patient is known to have COPD, hypertension, chronic hepatitis C and chronic liver disease secondary to hepatitis C and alcoholism. He has received a total of 5 mg of Ativan within the last couple hours. He has also been receiving Valium 2 mg p.o. 3 times daily. Patient has been started on Precedex. The blood work from today shows a WBC count of 11.6, hemoglobin 15.3 and a platelet count of 216. Sodium level is down to 121. BUN is 11 with a creatinine of 0.5 and a potassium level is at 4.3. Serum bicarb is at 18 with an anion gap of 5. Procalcitonin level is at 0.1. LFTs are showing an AST of 36, ALT of 63 and a total bilirubin is at 0.9. On today's evaluation of 08/01/2023, the patient is much more calm and comfortable. He is arousable and is communicating. He is still lethargic and slightly shaky. Nevertheless, he was able to take his oral medication and take some oral feeds. He is still on Precedex which is running at 0.2 mcg/kg/h and he is also on oxygen at 3 L/min nasal cannula. Note that the patient's chest x- ray showing increased pulm vascular congestion and edema. The chest x-ray from yesterday was more consistent with a right lower lobe pneumonia and this morning I am more convinced that this is more consistent with CHF. The patient remains on IV Lasix 20 mg IV every 12 hours and is producing adequate amount of urine output.Meanwhile, he has echocardiogram that was done yesterday on 06/01/2023 showed severe impairment of LV function with segmental wall motion abnormalities. The patient has moderate mitral regurgitation and mild tricuspid regurgitation. No evidence of any pulmonary hypertension. Estimated ejection fraction is around 25 to 30%. Also, the blood work shows a WBC count of 7.6 with a hemoglobin 13.8 and a platelet count of 214. BUN is at 15 with a creatinine of 0.8. Serum bicarb is at 17 and his sodium level is at 130. IV fluids are currently at KVO as the patient is being diuresed. The patient is negative fluid balance. He remains on aspirin and Brilinta. He is also on metoprolol 12.5 mg twice a day. Cardiology on the case. He is on high-dose statins. Objective - Vital Signs Vital signs: Vital Signs Temp 97.9 F 06/02/23 00:00 Pulse 71 06/02/23 07:00 Resp 19 06/02/23 07:00 BP 86/71 06/02/23 07:00 Pulse Ox 97 06/02/23 07:00 FiO2 Intake & Output 06/01/23 06/02/23 06/02/23 18:59 06:59 18:59 Intake Total 8942.816 8474.004 68 Output Total 2525 1405 0 Balance -1283.037 -303.996 68 Weight 91.5 kg 94 kg Intake: IV 261 923 68 Piperacillin-Tazobactam 3 125 175 .375 gm In Sodium Chloride 0.9% 100 ml @ 25 mls/hr IVPB Q8H [facility] Rx#: [id number] Sodium Chloride 0.9% 1, 136 748 68 000 ml In Empty Bag 1 bag @ 1 ML/KG/HR 68.039 mls/ hr IV .[id number] [facility] Rx#: [id number] Intake, IV Titration 280.963 178.004 Amount Dexmedetomidine/0.9% NaCl 280.963 178.004 (Pmx) 400 mcg In Empty Bag 1 bag @ 0.2 MCG/KG/HR 4.865 mls/hr IV .[id number] [facility] Rx#:[id number] Oral 700 Output: Urine 2525 1405 0 Other: Voiding Method Urinal External Catheter # Voids 1 - Exam GENERAL EXAM: Agitation and restlessness improved and the patient is on a lower dose of Precedex, alert and communicating. HEAD: Normocephalic and atraumatic EYES: Normal reaction of pupils, equal size. NOSE: Clear with pink turbinates. THROAT: No erythema or exudates. NECK: No masses, no JVD. CHEST: No chest wall deformity. LUNGS: Equal air entry bibasilar inspiratory crackles and mild end expiratory wheezes. No conversational dyspnea or accessory muscle use.. CVS: S1 and S2 normal with no audible murmur, regular rhythm. No extra heart sounds ABDOMEN: No hepatosplenomegaly, active bowel sounds, no guarding or rigidity. SPINE: No scoliosis or deformity SKIN: No rashes CENTRAL NERVOUS SYSTEM: Alert and communicating and less anxious and tremulous compared to yesterday. There may be some degree of ongoing encephalopathy. EXTREMITIES: There is no peripheral edema, clubbing, or cyanosis. Peripheral pulses are intact. - Labs CBC & Chem 7: 06/02/23 04:15 06/02/23 04:15 Labs: Abnormal Lab Results - Last 24 Hours (Table) 06/01/23 06/01/23 06/02/23 Range/Units 04:44 15:49 02:18 RBC (4.30-5.90) m/uL MCV (80.0-100.0) fL Sodium (137-145) mmol/L Carbon Dioxide (22-30) mmol/L Glucose (74-99) mg/dL POC Glucose (mg/dL) 133 H 121 H (70-110) mg/dL Calcium (8.4-10.2) mg/dL Procalcitonin 0.10 H (0.02-0.09) ng/mL 06/02/23 06/02/23 Range/Units 04:15 04:15 RBC 4.03 L (4.30-5.90) m/uL MCV 100.1 H (80.0-100.0) fL Sodium 130 L (137-145) mmol/L Carbon Dioxide 17 L (22-30) mmol/L Glucose 107 H (74-99) mg/dL POC Glucose (mg/dL) (70-110) mg/dL Calcium 8.1 L (8.4-10.2) mg/dL Procalcitonin (0.02-0.09) ng/mL Microbiology - Last 24 Hours (Table) 06/01/23 02:22 Gram Stain - Preliminary Sputum Assessment and Plan Plan: Acute hypoxic respiratory failure and the patient is currently on 3 L of oxygen by nasal cannula. Chest x-ray is consistent with CHF and pulmonary edema. Possibility of aspiration pneumonia involving the right lower lobe cannot be completely excluded. The patient remains on Zosyn and diuretics. Echocardiogram was completed and the patient has impaired ejection fraction along with segmental wall motion abnormalities. Ejection fraction is in order of 20 to 25%. Delirium tremens secondary to alcohol withdrawal, patient is alcoholic drinking approximately 10 beers a day. The patient is improved and the patient is currently on low-dose Precedex Coronary artery disease Acute ST segment elevation myocardial infarction, postcardiac catheterization, CAD as described above including 40% ostial LAD, 99% ostial diagonal 1, 60-70% mid LAD stenosis, 50% circumflex, 100% mid RCA stenosis S/p PCI diagonal 1 with overlapping 2.0 x 26 mm and 2.0 x 18 mm [place] ANÍBAL, PCI proximal to mid LAD with 2.75 x 38mm [place] ANÍBAL, postdilated with a 3.0 noncompliant balloon CHF with elevated left sided filling pressures. Suspect underlying systolic heart failure. Echocardiogram still pending for now. Based on the primary reports, the patient has impaired LV function with an ejection fraction of 25 to 30%. Rule out underlying ischemic versus alcoholic cardiomyopathy. Hyponatremia, rule out beer potomania, sodium level is improved Alcoholism Chronic obstructive pulmonary disease, stable Chronic ongoing tobacco dependence Hyperlipidemia History of hypertension History of hepatitis C Plan Titrate oxygen flow to maintain saturation above 90%, currently on 2 L of oxygen by nasal cannula Keep the IV fluids at KVO Cover the patient with IV Zosyn as an empiric antibiotic coverage regarding the possibility of an aspiration Monitor sodium level, improved Continue diuresis with Lasix 20 mg IV every 12 hours, with close monitoring of the patient's blood pressure Keep Precedex drip and titrate for the level of agitation, and gradually wean it off currently on 0.2 mcg/kg/h Ativan as needed based on the protocol Continue aspirin Continue Brilinta once the patient is able to swallow DuoNeb nebulizer treatments [id number] Continue Symbicort Continue beta-blockers and the patient is currently on 12.5 mg of metoprolol twice a day High-dose statins Monitor mentation and will continue to follow.
--- NOTE | 2023-06-02 12:39 | PN ---
PROGRESS NOTE SUBJECTIVE: This is a 63-year-old gentleman with a combination of ischemic and nonischemic cardiomyopathy who underwent PCI on the 3rd of this month of the LAD and diagonal bifurcation stenting with good result. Ejection fraction remains in the 25% range. The patient's blood pressure is also running at the low end of normal. Plan is to continue current medications, increase activity, and give him losartan only if systolic pressure is more than 90 mmHg. He is recovering but progressing very slowly. OBJECTIVE: VITALS: Stable. HEART: S1, S2 heard normally. No JVD. Short systolic murmur noted. LUNGS: Reveal diminished air entry. ABDOMEN: Soft. LOWER EXTREMITIES: Reveal diminished pulses. CENTRAL NERVOUS SYSTEM: Grossly within normal limits. Prognosis remains poor. Continue supportive care including the dual antiplatelet therapy. MMODL / IJN: [id number] /
[2023-06-02] MEDS: LORazepam 2 MG/ML INJ IV PRN (13:33)
[2023-06-03 04:15] LABS: Basophils % (A) 1 %; Eosinophils # (A) 0.1 k/uL (0-0.7); Eosinophils % (A) 2 %; HCT 38.7 % (39.0-53.0); Lymphocytes # (A) 0.7 k/uL (1.0-4.8); Lymphocytes % (A) 9 %; MCH 33.8 pg (25.0-35.0); MCHC 33.6 g/dL (31.0-37.0); MCV 100.5 fL (80.0-100.0); Mean Platelet Volume 8.4; Monocytes # (A) 0.6 k/uL (0-1.0); Monocytes % (A) 7 %; Neutrophils # (A) 6.7 k/uL (1.3-7.7); Neutrophils % (A) 81 %; Platelet Count 266 k/uL (150-450); RBC 3.85 m/uL (4.30-5.90); WBC 8.3 k/uL (3.8-10.6)
[2023-06-03 04:24] LABS: African American GFR (CKD) >90 (>60 ml/min/1.73 sqM); Anion Gap 7 mmol/L; Blood Urea Nitrogen 10 mg/dL (9-20); Calcium 8.1 mg/dL (8.4-10.2); Carbon Dioxide 20 mmol/L (22-30); Chloride 106 mmol/L (98-107); Glucose 90 mg/dL (74-99); Non-African American GFR(CKD) 79 (>60 ml/min/1.73 sqM); Potassium 3.5 mmol/L (3.5-5.1); Sodium 133 mmol/L (137-145)
[2023-06-03] MEDS ORDERED: Potassium Replacement Protocol 1 EACH MISC MISCELLANE PRN (05:09)
[2023-06-03] MEDS: POTASSIUM CHLORIDE ER 20 MEQ TAB.ER PO SCH (06:45)
--- NOTE | 2023-06-03 08:16 | XR ---
EXAMINATION TYPE: XR chest 1V portable DATE OF EXAM: 06/03/2023 HISTORY: Shortness of breath. COMPARISON: June 02, 2023 TECHNIQUE: Single view of the chest is submitted. FINDINGS: Demonstrated are scattered senescent parenchymal change. Perihilar and basilar infiltrates persist although appear markedly improved. The heart is stable. Hilar and mediastinal structures are within normal limits. Degenerative changes are seen of the dorsal spine. IMPRESSION: 1. Perihilar and basilar infiltrates persist although appear markedly improved.
--- NOTE | 2023-06-03 09:07 | PN ---
PROGRESS NOTE SUBJECTIVE: This is a 63-year-old gentleman with a history of ischemic and nonischemic cardiomyopathy who underwent stenting of multiple vessels, he is recovering slowly. He is much more alert and responds to questions. He feels better. We discussed about having him sit up and also ambulate with help. I will request occupational therapy and physical therapy consult to help improve his muscle strength and activity. He underwent PCI of LAD and diagonal with what seems to be a bifurcation lesion with LAD and diagonal. He is doing much better today. I am suggesting that we increase activity and also continue both his losartan and metoprolol. He was able to tolerate the metoprolol yesterday. We will give 12.5 mg of losartan today. Gradually increase activity and move him to telemetry or medical floors. OBJECTIVE: VITALS: Stable. Blood pressure is 110/70, pulse rate is about 70. HEART: S1, S2 heard normally, short systolic murmur. LUNGS: Clear. ABDOMEN: Soft. EXTREMITIES: Lower extremities reveal diminished pulses. NEUROLOGIC: Central nervous system, generalized weakness but no focal deficits. MMODL / IJN: [id number] /
[2023-06-03 11:14] VITALS: BMI 29.7
--- NOTE | 2023-06-03 12:01 | P.PN ---
Subjective Progress Note Date: 06/03/23 63-year-old male patient, currently being seen in the intensive care unit post acute non-ST segment elevation myocardial infarction. The patient was admitted on 05/30/2023 because of progressive shortness of breath over several days. Troponins peaked at 8. Patient underwent cardiac catheterization and he received 2 overlapping stents involving the diagonal and PCI involving the mid LAD. The patient is a chronic alcoholic and he drinks around 10 beers on a daily basis. Overnight, the patient became progressively more agitated than restless and he went into alcohol withdrawal with delirium tremens. Based on that, the patient was started on Precedex which is currently running at 1 mcg/kg/h. He is currently on oxygen 3 L/min nasal cannula. Chest x-ray was showing increased pulm vascular marking and increased consolidation of the right lung base and aspiration was suspected. The patient was already on Augmentin orally and I switched her to IV Zosyn as the patient is unable to swallow at t his point in time. Precedex dose is being titrated accordingly. IV fluids are currently acceptable. The patient was treated with a dose of Lasix with adequate urine output and some interval improvement in the patient's oxygenation. The patient is known to have COPD, hypertension, chronic hepatitis C and chronic liver disease secondary to hepatitis C and alcoholism. He has received a total of 5 mg of Ativan within the last couple hours. He has also been receiving Valium 2 mg p.o. 3 times daily. Patient has been started on Precedex. The blood work from today shows a WBC count of 11.6, hemoglobin 15.3 and a platelet count of 216. Sodium level is down to 121. BUN is 11 with a creatinine of 0.5 and a potassium level is at 4.3. Serum bicarb is at 18 with an anion gap of 5. Procalcitonin level is at 0.1. LFTs are showing an AST of 36, ALT of 63 and a total bilirubin is at 0.9. On today's evaluation of 08/01/2023, the patient is much more calm and comfortable. He is arousable and is communicating. He is still lethargic and slightly shaky. Nevertheless, he was able to take his oral medication and take some oral feeds. He is still on Precedex which is running at 0.2 mcg/kg/h and he is also on oxygen at 3 L/min nasal cannula. Note that the patient's chest x- ray showing increased pulm vascular congestion and edema. The chest x-ray from yesterday was more consistent with a right lower lobe pneumonia and this morning I am more convinced that this is more consistent with CHF. The patient remains on IV Lasix 20 mg IV every 12 hours and is producing adequate amount of urine output.Meanwhile, he has echocardiogram that was done yesterday on 06/01/2023 showed severe impairment of LV function with segmental wall motion abnormalities. The patient has moderate mitral regurgitation and mild tricuspid regurgitation. No evidence of any pulmonary hypertension. Estimated ejection fraction is around 25 to 30%. Also, the blood work shows a WBC count of 7.6 with a hemoglobin 13.8 and a platelet count of 214. BUN is at 15 with a creatinine of 0.8. Serum bicarb is at 17 and his sodium level is at 130. IV fluids are currently at KVO as the patient is being diuresed. The patient is negative fluid balance. He remains on aspirin and Brilinta. He is also on metoprolol 12.5 mg twice a day. Cardiology on the case. He is on high-dose statins. On 06/03/2023, I am seeing the patient for a follow-up. The patient is currently off Precedex and the patient was taken off Precedex yesterday at around 11 AM. Alert and oriented and he is communicating. No tremors. No encephalopathy. No reported chest pain. He is currently on room air oxygen and the patient has produced approximately 1.5 L of negative fluid balance over the past 24 hours while being on IV Lasix. Meanwhile, the echocardiogram showed impaired LV function with an ejection fraction of 25 to 30%. For now, the patient remains on a combination of aspirin and Brilinta. The chest x-ray from today showing improvement in the pulmonary edema. There is some residual right lower lobe pulmonary infiltrate consistent with aspiration pneumonia and the patient remains on IV Zosyn. The patient is afebrile and hemodynamically stable the patient is also on metoprolol 12.5 mg twice a day. He receives also updrafts [id number].In terms of his labs, WBC count of 8.3 with a hemoglobin of 13 and a platelet count of 266, BUN is at 10 with a creatinine of 1 and sodium levels at 133. Objective - Vital Signs Vital signs: Vital Signs Temp 98.9 F 06/03/23 04:00 Pulse 92 06/03/23 07:00 Resp 28 H 06/03/23 07:00 BP 98/53 06/03/23 07:00 Pulse Ox 94 L 06/03/23 07:00 FiO2 Intake & Output 06/02/23 06/03/23 06/03/23 18:59 06:59 18:59 Intake Total 998.137 810 Output Total 1700 1600 Balance -701.863 -790 Weight 93.8 kg Intake: IV 436 260 Piperacillin-Tazobactam 3 100 .375 gm In Sodium Chloride 0.9% 100 ml @ 25 mls/hr IVPB Q8H TERE Rx#: [id number] Sodium Chloride 0.9% 1, 336 260 000 ml In Empty Bag 1 bag @ 20 mls/hr IV .Q24H TERE Rx#:[id number] Intake, IV Titration 22.137 Amount Dexmedetomidine/0.9% NaCl 22.137 (Pmx) 400 mcg In Empty Bag 1 bag @ 0.2 MCG/KG/HR 4.865 mls/hr IV .[id number] TERE Rx#:[id number] Oral 540 550 Output: Urine 1700 1600 Other: Voiding Method External Catheter External Catheter # Voids 1 - Exam GENERAL EXAM: Alert and oriented x 3 currently on room air oxygen HEAD: Normocephalic and atraumatic EYES: Normal reaction of pupils, equal size. NOSE: Clear with pink turbinates. THROAT: No erythema or exudates. NECK: No masses, no JVD. CHEST: No chest wall deformity. LUNGS: Equal air entry bibasilar inspiratory crackles and mild end expiratory wheezes. No conversational dyspnea or accessory muscle use.. CVS: S1 and S2 normal with no audible murmur, regular rhythm. No extra heart sounds ABDOMEN: No hepatosplenomegaly, active bowel sounds, no guarding or rigidity. SPINE: No scoliosis or deformity SKIN: No rashes CENTRAL NERVOUS SYSTEM: A neurologically, the patient is awake and alert and the patient does not have any focal neurological deficit. Cranial nerves are essentially intact. EXTREMITIES: There is no peripheral edema, clubbing, or cyanosis. Peripheral p ulses are intact. - Labs CBC & Chem 7: 06/03/23 03:29 06/03/23 03:29 Labs: Abnormal Lab Results - Last 24 Hours (Table) 06/03/23 06/03/23 Range/Units 03:29 03:29 RBC 3.85 L (4.30-5.90) m/uL Hct 38.7 L (39.0-53.0) % MCV 100.5 H (80.0-100.0) fL Lymphocytes # 0.7 L (1.0-4.8) k/uL Sodium 133 L (137-145) mmol/L Carbon Dioxide 20 L (22-30) mmol/L Calcium 8.1 L (8.4-10.2) mg/dL Microbiology - Last 24 Hours (Table) 06/01/23 02:22 Gram Stain - Preliminary Sputum Sputum Culture - Preliminary Assessment and Plan Plan: Acute hypoxic respiratory failure improved and the patient is currently on room air oxygen. Chest x-ray is consistent with CHF and pulmonary edema. The patient was diuresed and repeat chest x-ray from today showing improvement in volume status and the patient has some residual right lower lobe pulm infiltrates consistent with pneumonia in the possibility of aspiration pneumonia involving the right lower lobe cannot be completely excluded. The patient remains on Zosyn and diuretics. Echocardiogram was completed and the patient has impaired ejection fraction along with segmental wall motion abnormalities. Ejection fraction is in order of 20 to 25%. Delirium tremens, recovered and the patient is currently off Precedex Coronary artery disease Acute ST segment elevation myocardial infarction, postcardiac catheterization, CAD as described above including 40% ostial LAD, 99% ostial diagonal 1, 60-70% mid LAD stenosis, 50% circumflex, 100% mid RCA stenosis S/p PCI diagonal 1 with overlapping 2.0 x 26 mm and 2.0 x 18 mm Adalberto ANÍBAL, PCI proximal to mid LAD with 2.75 x 38mm Xience ANÍBAL, postdilated with a 3.0 noncompliant balloon CHF with elevated left sided filling pressures. Suspect underlying systolic heart failure. Echocardiogram still pending for now. Based on the primary reports, the patient has impaired LV function with an ejection fraction of 25 to 30%. Rule out underlying ischemic versus alcoholic cardiomyopathy. Hyponatremia, rule out beer potomania, sodium level is improved Alcoholism Chronic obstructive pulmonary disease, stable Chronic ongoing tobacco dependence Hyperlipidemia History of hypertension History of hepatitis C Plan Patient is currently on room air oxygen Keep the IV fluids at KVO Cover the patient with IV Zosyn as an empiric antibiotic coverage regarding the possibility of an aspiration Monitor sodium level, improved Continue diuresis with Lasix 20 mg IV every 12 hours, with close monitoring of the patient's blood pressure Patient is currently off Precedex Ativan as needed based on the protocol Continue aspirin Continue Brilinta once the patient is able to swallow Metoprolol 12.5 mg p.o. twice a day DuoNeb nebulizer treatments [id number] Continue Symbicort High-dose statins Patient can be transferred to a cardiac floor, 3 S.
--- NOTE | 2023-06-03 13:24 | P.PN ---
Subjective Progress Note Date: 06/02/23 H&P Date: 05/30/23 Chief Complaint: chest pain patient presents to the emergency room early this morning with chest pain and subsequently went to the catheter lab with Dr. Anup Lee where he underwent a cardiac catheterization secondary to a STEMI, patient underwent angioplasty with 3 stents placed and 2 vessel, I evaluated the patient this morning he was his responses were limited secondary to persistent residual anesthetic, he denied chest pain at this time denied shortness of breath at this time denied nausea and vomiting at this time 05/31/23 Patient seen and examined, does not complain of chest pain. Underwent successful stenting of the bifurcation of the LAD diagonal branch per Dr. Lee cardiology, currently going through withdrawals drinks approximately 8- 20 beers a day he is on the CIwa protocol, also has nicotine patch is a chronic smoker a brief run of nonsustained VT for 10 beats was noted placed on the senna PERRL metoprolol which have been held secondary to hypotension which may be dire ctly because of the Ativan he is getting for alcohol withdrawal. 06/01/2023 DTs, maintained on Precedex drip, recent CIWA score 15. Tachypneic, blood pressure soft, earlier required 10 L high flow nasal cannula currently weaned down to 3 L nasal cannula maintaining O2 sats in the mid 90s. Echoca rdiogram reporting severely impaired left ventricular systolic function with segmental wall motion abnormality, EF 25 to 30%, moderate mitral with mild tricuspid regurgitation and mild aortic regurgitation, no evidence of pulmonary hypertension. Chest x-ray reported continued pulmonary vascular congestion with scattered infiltrates and small effusions. 06/02/2023 sensorium significantly improved .Precedex has been off for a couple hours, CIWA score improving. Diuresing well on Lasix IV push. Bicarb 17, creatinine 0.8. sodium improved up to 130. Chest x-ray reporting perihilar and basilar infiltrates persistence, markedly improved. Continues on empiric Zosyn, afebrile. O2 sat in the 90s on 2 L nasal cannula. Procalcitonin 0.1 .maintained on aspirin, Brilinta and beta-praveen. Objective - Vital Signs Vital signs: Vital Signs Temp 97.6 F 06/02/23 08:00 Pulse 68 06/02/23 11:00 Resp 12 06/02/23 11:00 BP 96/68 06/02/23 11:00 Pulse Ox 96 06/02/23 11:00 FiO2 Intake & Output 06/01/23 06/02/23 06/02/23 18:59 06:59 18:59 Intake Total 4898.590 5894.004 858.137 Output Total 2525 1405 700 Balance -1283.037 -303.996 158.137 Weight 91.5 kg 94 kg Intake: IV 261 923 296 Piperacillin-Tazobactam 3 125 175 100 .375 gm In Sodium Chloride 0.9% 100 ml @ 25 mls/hr IVPB Q8H TERE Rx#: [id number] Sodium Chloride 0.9% 1, 136 748 196 000 ml In Empty Bag 1 bag @ 20 mls/hr IV .Q24H TERE Rx#:[id number] Intake, IV Titration 280.963 178.004 22.137 Amount Dexmedetomidine/0.9% NaCl 280.963 178.004 22.137 (Pmx) 400 mcg In Empty Bag 1 bag @ 0.2 MCG/KG/HR 4.865 mls/hr IV .[id number] TERE Rx#:[id number] Oral 700 540 Output: Urine 2525 1405 700 Other: Voiding Method Urinal External Catheter External Catheter # Voids 1 1 - Exam General: Sitting up in bed, alert and oriented x 2, no acute distress, less anxiety HEENT: [PERRL. Conjunctiva normal. Neck: Supple, no JVD Cardiac: [Heart regular in rate and rhythm. No murmur auscultated.] Lungs: equal air entry, fine bibasilar crackles Abdomen: Soft, nontender, no guarding, no rigidity, positive bowel sounds Extremes: [No edema no cyanosis no claudication normal pulses] Skin: [No rash.] Neurologic: Cranial nerves II through XII grossly intact, decreased tremors - Labs CBC & Chem 7: 06/03/23 03:29 06/03/23 03:29 Labs: Abnormal Lab Results - Last 24 Hours (Table) 06/01/23 06/02/23 06/02/23 Range/Units 15:49 02:18 04:15 RBC 4.03 L (4.30-5.90) m/uL MCV 100.1 H (80.0-100.0) fL Sodium (137-145) mmol/L Carbon Dioxide (22-30) mmol/L Glucose (74-99) mg/dL POC Glucose (mg/dL) 133 H 121 H (70-110) mg/dL Calcium (8.4-10.2) mg/dL 06/02/23 Range/Units 04:15 RBC (4.30-5.90) m/uL MCV (80.0-100.0) fL Sodium 130 L (137-145) mmol/L Carbon Dioxide 17 L (22-30) mmol/L Glucose 107 H (74-99) mg/dL POC Glucose (mg/dL) (70-110) mg/dL Calcium 8.1 L (8.4-10.2) mg/dL Microbiology - Last 24 Hours (Table) 06/01/23 02:22 Gram Stain - Preliminary Sputum Sputum Culture - Preliminary Assessment and Plan Assessment: (1) Alcoholic liver disease Current Visit: Yes Status: Acute Code(s): K70.9 - ALCOHOLIC LIVER DISEASE, UNSPECIFIED SNOMED Code(s): 80474608 (2) Acute hypoxic respiratory failure secondary to DTs, STEMI, CHF and pulmonary edema ,possibly aspiration pneumonia (3)Chronic obstructive pulmonary disease Current Visit: Yes Status: Acute Code(s): J44.9 - CHRONIC OBSTRUCTIVE PULMONARY DISEASE, UNSPECIFIED SNOMED Code(s): 30026971 (4) Congestive heart failure, systolic dysfunction Current Visit: Yes Status: Acute Code(s): I50.9 - HEART FAILURE, UNSPECIFIED SNOMED Code(s): 78249482 (5) STEMI (ST elevation myocardial infarction) Current Visit: Yes Status: Acute Code(s): I21.3 - ST ELEVATION (STEMI) MYOCARDIAL INFARCTION OF [facility] SITE SNOMED Code(s): 51744883 (6) nonsustained V.T. (7) hypotension suspect exacerbated by CIWA protocol (8) ongoing nicotine dependence (9) history of hepatitis C Plan: Continue on current medication regimen, monitoring and symptomatic treatment. Maintain on CIWA protocol, antibiotics, dual antiplatelet therapy, beta-praveen, diuretics. close monitoring of electrolytes, renal function with repeat labs ordered for a.m. Aggressive pulmonary toileting with nebulized bronchodilators, Symbicort. Social work assisting with discharge planning/subacute rehab. The impression and plan of care has been dictated as directed. : I performed a history and examination of this patient, discussed the same with the dictator. I agree with the dictator's note ,documented as a scribe. Any additional findings or plans will be noted.
--- NOTE | 2023-06-03 13:38 | P.PN ---
Subjective Progress Note Date: 06/03/23 H&P Date: 05/30/23 Chief Complaint: chest pain patient presents to the emergency room early this morning with chest pain and subsequently went to the catheter lab with Dr. Anup Lee where he underwent a cardiac catheterization secondary to a STEMI, patient underwent angioplasty with 3 stents placed and 2 vessel, I evaluated the patient this morning he was his responses were limited secondary to persistent residual anesthetic, he denied chest pain at this time denied shortness of breath at this time denied nausea and vomiting at this time 05/31/23 Patient seen and examined, does not complain of chest pain. Underwent successful stenting of the bifurcation of the LAD diagonal branch per Dr. Lee cardiology, currently going through withdrawals drinks approximately 8- 20 beers a day he is on the CIwa protocol, also has nicotine patch is a chronic smoker a brief run of nonsustained VT for 10 beats was noted placed on the senna PERRL metoprolol which have been held secondary to hypotension which may be dire ctly because of the Ativan he is getting for alcohol withdrawal. 06/01/2023 DTs, maintained on Precedex drip, recent CIWA score 15. Tachypneic, blood pressure soft, earlier required 10 L high flow nasal cannula currently weaned down to 3 L nasal cannula maintaining O2 sats in the mid 90s. Echoca rdiogram reporting severely impaired left ventricular systolic function with segmental wall motion abnormality, EF 25 to 30%, moderate mitral with mild tricuspid regurgitation and mild aortic regurgitation, no evidence of pulmonary hypertension. Chest x-ray reported continued pulmonary vascular congestion with scattered infiltrates and small effusions. 06/02/2023 sensorium significantly improved .Precedex has been off for a couple hours, CIWA score improving. Diuresing well on Lasix IV push. Bicarb 17, creatinine 0.8. sodium improved up to 130. Chest x-ray reporting perihilar and basilar infiltrates persistence, markedly improved. Continues on empiric Zosyn, afebrile. O2 sat in the 90s on 2 L nasal cannula. Procalcitonin 0.1 .maintained on aspirin, Brilinta and beta-praveen. 06/03/2023 remains off of Precedex, sitting up in chair, communicating well. Anxiety controlled, no tremors. CIWA score earlier,2. Chest x-ray reporting improvement, diuresing well on Lasix IV push with 24-hour I&O reporting negative fluid balance. Sodium continues to improve, 133. Bicarb 20, BUN 10, creatinine 1.00. Afebrile, normal WBC, on Zosyn for aspiration pneumonia. Maintaining O2 sats in the 90s on 3 L nasal cannula. Extremely weak, currently sitting up in chair. Objective - Vital Signs Vital signs: Vital Signs Temp 98.2 F 06/03/23 12:00 Pulse 84 06/03/23 12:00 Resp 28 H 06/03/23 12:00 BP 106/78 06/03/23 12:00 Pulse Ox 94 L 06/03/23 12:00 FiO2 Intake & Output 06/02/23 06/03/23 06/03/23 18:59 06:59 18:59 Intake Total 998.137 810 300 Output Total 1700 1600 2100 Balance -701.863 -790 -1800 Weight 93.8 kg 93.8 kg Intake: IV 436 260 180 Piperacillin-Tazobactam 3 100 100 .375 gm In Sodium Chloride 0.9% 100 ml @ 25 mls/hr IVPB Q8H TERE Rx#: [id number] Sodium Chloride 0.9% 1, 336 260 80 000 ml In Empty Bag 1 bag @ 20 mls/hr IV .Q24H TERE Rx#:[id number] Intake, IV Titration 22.137 Amount Dexmedetomidine/0.9% NaCl 22.137 (Pmx) 400 mcg In Empty Bag 1 bag @ 0.2 MCG/KG/HR 4.865 mls/hr IV .[id number] TERE Rx#:[id number] Oral 540 550 120 Output: Urine 1700 1600 2100 Other: Voiding Method External Catheter External Catheter External Catheter # Voids 1 - Exam General: Sitting up in chair, alert and oriented x 3, no acute distress HEENT: [PERRL. Conjunctiva normal.MMM. Neck: Supple, no JVD Cardiac: [Heart regular in rate and rhythm. No murmur auscultated.] Lungs: equal air entry, fine bibasilar crackles Abdomen: Soft, nontender, no guarding, no rigidity, positive bowel sounds. Extremes: [No edema no cyanosis no claudication normal pulses] Skin: [No rash.] Neurologic: Cranial nerves II through XII grossly intact. - Labs CBC & Chem 7: 02/07/24 03:29 06/03/23 03:29 Labs: Abnormal Lab Results - Last 24 Hours (Table) 06/03/23 06/03/23 Range/Units 03:29 03:29 RBC 3.85 L (4.30-5.90) m/uL Hct 38.7 L (39.0-53.0) % MCV 100.5 H (80.0-100.0) fL Lymphocytes # 0.7 L (1.0-4.8) k/uL Sodium 133 L (137-145) mmol/L Carbon Dioxide 20 L (22-30) mmol/L Calcium 8.1 L (8.4-10.2) mg/dL Microbiology - Last 24 Hours (Table) 06/01/23 02:22 Gram Stain - Final Sputum Sputum Culture - Final Assessment and Plan Assessment: (1) Alcoholic liver disease Current Visit: Yes Status: Acute Code(s): K70.9 - ALCOHOLIC LIVER DISEASE, UNSPECIFIED SNOMED Code(s): 83213127 (2) Acute hypoxic respiratory failure secondary to DTs, STEMI, CHF and pulmonary edema , aspiration pneumonia (3)Chronic obstructive pulmonary disease Current Visit: Yes Status: Acute Code(s): J44.9 - CHRONIC OBSTRUCTIVE PULMONARY DISEASE, UNSPECIFIED SNOMED Code(s): 13627831 (4) Congestive heart failure, systolic dysfunction Current Visit: Yes Status: Acute Code(s): I50.9 - HEART FAILURE, UNSPECIFIED SNOMED Code(s): 66330044 (5) STEMI (ST elevation myocardial infarction) Current Visit: Yes Status: Acute Code(s): I21.3 - ST ELEVATION (STEMI) MYOCARDIAL INFARCTION OF [place] SNOMED Code(s): 20070745 (6) nonsustained V.T. (7) hypotension suspect exacerbated by CIWA protocol (8) ongoing nicotine dependence (9) history of hepatitis C Plan: Continue on current medication regimen, monitoring and symptomatic treatment. Patient is now stepdown overflow. Maintain aggressive pulmonary toileting with nebulized bronchodilators, Symbicort.continue on CIWA protocol, antibiotics, dual antiplatelet therapy, beta-praveen, diuretics. Close mon itoring of electrolytes, renal function with repeat labs ordered for a.m. PT .Reinforced subacute rehab at discharge though patient states he wants to go to [facility], but reports he is aware that he is very weak, difficulty standing up. social work assisting with discharge planning/subacute rehab. The impression and plan of care has been dictated as directed. : I performed a history and examination of this patient, discussed the same with the dictator. I agree with the dictator's note ,documented as a scribe. Any additional findings or plans will be noted.
[2023-06-03] MEDS: BENZOCAINE/MENTHOL LOZENG 1 EACH LOZENGE MUCOUS MEM PRN (23:06)
[2023-06-04 06:02] LABS: Basophils % (A) 1 %; Eosinophils # (A) 0.2 k/uL (0-0.7); Eosinophils % (A) 3 %; HCT 39.5 % (39.0-53.0); HGB 13.1 gm/dL (13.0-17.5); Lymphocytes % (A) 14 %; MCH 33.6 pg (25.0-35.0); MCHC 33.1 g/dL (31.0-37.0); MCV 101.5 fL (80.0-100.0); Mean Platelet Volume 8.3; Monocytes # (A) 0.5 k/uL (0-1.0); Monocytes % (A) 7 %; Neutrophils # (A) 5.1 k/uL (1.3-7.7); Neutrophils % (A) 74 %; Platelet Count 290 k/uL (150-450); RBC 3.89 m/uL (4.30-5.90); RDW 12.2 % (11.5-15.5)
[2023-06-04 06:12] LABS: African American GFR (CKD) >90 (>60 ml/min/1.73 sqM); Anion Gap 8 mmol/L; Blood Urea Nitrogen 7 mg/dL (9-20); Calcium 8.3 mg/dL (8.4-10.2); Carbon Dioxide 21 mmol/L (22-30); Chloride 107 mmol/L (98-107); Glucose 90 mg/dL (74-99); Non-African American GFR(CKD) 90 (>60 ml/min/1.73 sqM); Potassium 3.4 mmol/L (3.5-5.1); Sodium 136 mmol/L (137-145)
[2023-06-04] MEDS: POTASSIUM CHLORIDE ER 20 MEQ TAB.ER PO SCH ×2 (08:31→12:38)
[2023-06-04] MEDS: LOSARTAN 25 MG TAB PO SCH (08:31)
[2023-06-04] MEDS: FUROSEMIDE 40 MG TAB PO SCH (08:34)
--- NOTE | 2023-06-04 09:13 | PN ---
PROGRESS NOTE SUBJECTIVE: Mr. Anderson underwent a complex PCI, has ischemic cardiomyopathy and also alcohol-related nonischemic cardiomyopathy. He remains in sinus rhythm, hemodynamically stable. Blood pressure is fairly decent. Plan is to move him to telemetry, increase activity, possible discharge soon. PHYSICAL EXAMINATION: VITALS: Stable. Blood pressure 107/70. HEART: S1, S2 heard normally, short systolic murmur. LUNGS: Revealed improved air entry. ABDOMEN: Unchanged. LOWER EXTREMITIES: Unchanged. PLAN: To continue current medications and move him to telemetry. Prognosis remains guarded. MMODL / IJN: [id number] /
--- NOTE | 2023-06-04 09:42 | XR ---
EXAMINATION TYPE: XR chest 1V portable DATE OF EXAM: 06/04/2023 9:28 AM CLINICAL INDICATION:Male, 63 years old with history of SOB; [facility] COMPARISON: Chest radiograph from one day prior. TECHNIQUE: XR chest 1V portable Frontal view of the chest. FINDINGS: Lungs/Pleura: Improved aeration of lungs on today's exam with persistent airspace opacities within th e right lung base. No evidence of pneumothorax or large pleural effusion. Pulmonary vascularity: Unremarkable. Heart/mediastinum: Cardiomediastinal silhouette is unremarkable. Musculoskeletal: No acute osseous pathology. Other findings: None IMPRESSION: Right lower lung airspace opacities concerning for pneumonia, findings improved from 06/03/2023.
--- NOTE | 2023-06-04 12:20 | P.PN ---
Subjective Progress Note Date: 06/04/23 63-year-old male patient, currently being seen in the intensive care unit post acute non-ST segment elevation myocardial infarction. The patient was admitted on 05/30/2023 because of progressive shortness of breath over several days. Troponins peaked at 8. Patient underwent cardiac catheterization and he received 2 overlapping stents involving the diagonal and PCI involving the mid LAD. The patient is a chronic alcoholic and he drinks around 10 beers on a daily basis. Overnight, the patient became progressively more agitated than restless and he went into alcohol withdrawal with delirium tremens. Based on that, the patient was started on Precedex which is currently running at 1 mcg/kg/h. He is currently on oxygen 3 L/min nasal cannula. Chest x-ray was showing increased pulm vascular marking and increased consolidation of the right lung base and aspiration was suspected. The patient was already on Augmentin orally and I switched her to IV Zosyn as the patient is unable to swallow at t his point in time. Precedex dose is being titrated accordingly. IV fluids are currently acceptable. The patient was treated with a dose of Lasix with adequate urine output and some interval improvement in the patient's oxygenation. The patient is known to have COPD, hypertension, chronic hepatitis C and chronic liver disease secondary to hepatitis C and alcoholism. He has received a total of 5 mg of Ativan within the last couple hours. He has also been receiving Valium 2 mg p.o. 3 times daily. Patient has been started on Precedex. The blood work from today shows a WBC count of 11.6, hemoglobin 15.3 and a platelet count of 216. Sodium level is down to 121. BUN is 11 with a creatinine of 0.5 and a potassium level is at 4.3. Serum bicarb is at 18 with an anion gap of 5. Procalcitonin level is at 0.1. LFTs are showing an AST of 36, ALT of 63 and a total bilirubin is at 0.9. On today's evaluation of 08/01/2023, the patient is much more calm and comfortable. He is arousable and is communicating. He is still lethargic and slightly shaky. Nevertheless, he was able to take his oral medication and take some oral feeds. He is still on Precedex which is running at 0.2 mcg/kg/h and he is also on oxygen at 3 L/min nasal cannula. Note that the patient's chest x- ray showing increased pulm vascular congestion and edema. The chest x-ray from yesterday was more consistent with a right lower lobe pneumonia and this morning I am more convinced that this is more consistent with CHF. The patient remains on IV Lasix 20 mg IV every 12 hours and is producing adequate amount of urine output.Meanwhile, he has echocardiogram that was done yesterday on 06/01/2023 showed severe impairment of LV function with segmental wall motion abnormalities. The patient has moderate mitral regurgitation and mild tricuspid regurgitation. No evidence of any pulmonary hypertension. Estimated ejection fraction is around 25 to 30%. Also, the blood work shows a WBC count of 7.6 with a hemoglobin 13.8 and a platelet count of 214. BUN is at 15 with a creatinine of 0.8. Serum bicarb is at 17 and his sodium level is at 130. IV fluids are currently at KVO as the patient is being diuresed. The patient is negative fluid balance. He remains on aspirin and Brilinta. He is also on metoprolol 12.5 mg twice a day. Cardiology on the case. He is on high-dose statins. On 06/03/2023, I am seeing the patient for a follow-up. The patient is currently off Precedex and the patient was taken off Precedex yesterday at around 11 AM. Alert and oriented and he is communicating. No tremors. No encephalopathy. No reported chest pain. He is currently on room air oxygen and the patient has produced approximately 1.5 L of negative fluid balance over the past 24 hours while being on IV Lasix. Meanwhile, the echocardiogram showed impaired LV function with an ejection fraction of 25 to 30%. For now, the patient remains on a combination of aspirin and Brilinta. The chest x-ray from today showing improvement in the pulmonary edema. There is some residual right lower lobe pulmonary infiltrate consistent with aspiration pneumonia and the patient remains on IV Zosyn. The patient is afebrile and hemodynamically stable the patient is also on metoprolol 12.5 mg twice a day. He receives also updrafts [id number].In terms of his labs, WBC count of 8.3 with a hemoglobin of 13 and a platelet count of 266, BUN is at 10 with a creatinine of 1 and sodium levels at 133. On today's evaluation of 06/04/2023, I am seeing the patient for a follow-up. No signs of any acute delirium tremors and the patient is fully recovered from his DT. The patient is otherwise resting comfortably bed up-to-date is affected by nasal cannula and is also being treated for an aspiration right lower lobe pneum onia. Repeat chest x-ray was done that showed improvement in the right lower lobe pulm infiltrate. The patient is currently on 2 L of oxygen by nasal cannula. No chest pain. No cough congestion or sputum production. Cardiac rhythm is sinus. The white cell count is at 7 with a hemoglobin 15.1 and a platelet count of 290. BUN is at 7 with a creatinine of 0.9 and a sodium level of 136. The patient has no other complaints otherwise for now. The patient is currently on a combination of aspirin and Brilinta. The patient is also on metoprolol 12.5 mg twice a day. The patient has been switched to oral Lasix 40 mg p.o. twice a day. Echocardiogram showed significant LV with an EF around 25 to 30%. Objective - Vital Signs Vital signs: Vital Signs Temp 98.1 F 06/04/23 08:00 Pulse 101 H 06/04/23 08:00 Resp 20 06/04/23 08:00 BP 110/73 06/04/23 08:00 Pulse Ox 90 L 06/04/23 08:00 FiO2 Intake & Output 06/03/23 06/04/23 06/04/23 18:59 06:59 18:59 Intake Total 480 Output Total 2800 1000 Balance -2320 -1000 Weight 93.8 kg 93.7 kg Intake: IV 240 Piperacillin-Tazobactam 3 100 .375 gm In Sodium Chloride 0.9% 100 ml @ 25 mls/hr IVPB Q8H TERE Rx#: [id number] Sodium Chloride 0.9% 1, 140 000 ml In Empty Bag 1 bag @ 20 mls/hr IV .Q24H TERE Rx#:[id number] Oral 240 Output: Urine 2800 1000 Other: Voiding Method External Catheter Urinal # Bowel Movements 1 - Exam GENERAL EXAM: Alert and oriented x 3 currently on room air oxygen, subsequently placed on 2 L of oxygen by nasal cannula HEAD: Normocephalic and atraumatic EYES: Normal reaction of pupils, equal size. NOSE: Clear with pink turbinates. THROAT: No erythema or exudates. NECK: No masses, no JVD. CHEST: No chest wall deformity. LUNGS: Equal air entry bibasilar inspiratory crackles and mild end expiratory wheezes. No conversational dyspnea or accessory muscle use.. CVS: S1 and S2 normal with no audible murmur, regular rhythm. No extra heart sounds ABDOMEN: No hepatosplenomegaly, active bowel sounds, no guarding or rigidity. SPINE: No scoliosis or deformity SKIN: No rashes CENTRAL NERVOUS SYSTEM: A neurologically, the patient is awake and alert and the patient does not have any focal neurological deficit. Cranial nerves are essentially intact. EXTREMITIES: There is no peripheral edema, clubbing, or cyanosis. Peripheral pulses are intact. - Labs CBC & Chem 7: 06/04/23 05:20 06/04/23 05:20 Labs: Abnormal Lab Results - Last 24 Hours (Table) 06/04/23 06/04/23 Range/Units 05:20 05:20 RBC 3.89 L (4.30-5.90) m/uL MCV 101.5 H (80.0-100.0) fL Sodium 136 L (137-145) mmol/L Potassium 3.4 L (3.5-5.1) mmol/L Carbon Dioxide 21 L (22-30) mmol/L BUN 7 L (9-20) mg/dL Calcium 8.3 L (8.4-10.2) mg/dL Microbiology - Last 24 Hours (Table) 06/01/23 02:22 Gram Stain - Final Sputum Sputum Culture - Final Assessment and Plan Plan: Acute hypoxic respiratory failure improved and the patient is currently on room air oxygen. Chest x-ray is consistent with CHF and pulmonary edema. The patient was diuresed and repeat chest x-ray from today showing improvement in volume status and the patient has some residual right lower lobe pulm infiltrates consistent with pneumonia in the possibility of aspiration pneumonia involving the right lower lobe cannot be completely excluded. The patient remains on Zosyn and diuretics. Echocardiogram was completed and the patient has impaired ejection fraction along with segmental wall motion abnormalities. Ejection fraction is in order of 20 to 25%. Delirium tremens, recovered and the patient is currently off Precedex Coronary artery disease Acute ST segment elevation myocardial infarction, postcardiac catheterization, CAD as described above including 40% ostial LAD, 99% ostial diagonal 1, 60-70% mid LAD stenosis, 50% circumflex, 100% mid RCA stenosis S/p PCI diagonal 1 with overlapping 2.0 x 26 mm and 2.0 x 18 mm Adalberto ANÍBAL, PCI proximal to mid LAD with 2.75 x 38mm Xience ANÍBAL, postdilated with a 3.0 noncompliant balloon CHF with elevated left sided filling pressures. Suspect underlying systolic heart failure. Echocardiogram still pending for now. Based on the primary reports, the patient has impaired LV function with an ejection fraction of 25 to 30%. Rule out underlying ischemic versus alcoholic cardiomyopathy. Hyponatremia, rule out beer potomania, sodium level is improved Alcoholism Chronic obstructive pulmonary disease, stable Chronic ongoing tobacco dependence Hyperlipidemia History of hypertension History of hepatitis C Plan Clinically stable and improving Patient is currently on 2 L of oxygen by nasal cannula and a chest x-ray showing improvement the right lower lobe consolidation which is consistent with an aspiration pneumonia Keep the IV fluids at KVO Cover the patient with IV Zosyn as an empiric antibiotic coverage regarding the possibility of an aspiration Monitor sodium level, improved, improved Continue Lasix 40 mg twice a day Continue aspirin Continue Brilinta Metoprolol 12.5 mg p.o. twice a day DuoNeb nebulizer treatments [id number] Continue Symbicort High-dose statins Patient can be transferred to a cardiac floor, 3 S.
--- NOTE | 2023-06-04 13:29 | P.PN ---
Subjective Progress Note Date: 06/04/23 H&P Date: 05/30/23 Chief Complaint: chest pain patient presents to the emergency room early this morning with chest pain and subsequently went to the catheter lab with Dr. Anup Lee where he underwent a cardiac catheterization secondary to a STEMI, patient underwent angioplasty with 3 stents placed and 2 vessel, I evaluated the patient this morning he was his responses were limited secondary to persistent residual anesthetic, he denied chest pain at this time denied shortness of breath at this time denied nausea and vomiting at this time 05/31/23 Patient seen and examined, does not complain of chest pain. Underwent successful stenting of the bifurcation of the LAD diagonal branch per Dr. Lee cardiology, currently going through withdrawals drinks approximately 8- 20 beers a day he is on the CIwa protocol, also has nicotine patch is a chronic smoker a brief run of nonsustained VT for 10 beats was noted placed on the senna PERRL metoprolol which have been held secondary to hypotension which may be dire ctly because of the Ativan he is getting for alcohol withdrawal. 06/01/2023 DTs, maintained on Precedex drip, recent CIWA score 15. Tachypneic, blood pressure soft, earlier required 10 L high flow nasal cannula currently weaned down to 3 L nasal cannula maintaining O2 sats in the mid 90s. Echoca rdiogram reporting severely impaired left ventricular systolic function with segmental wall motion abnormality, EF 25 to 30%, moderate mitral with mild tricuspid regurgitation and mild aortic regurgitation, no evidence of pulmonary hypertension. Chest x-ray reported continued pulmonary vascular congestion with scattered infiltrates and small effusions. 06/02/2023 sensorium significantly improved .Precedex has been off for a couple hours, CIWA score improving. Diuresing well on Lasix IV push. Bicarb 17, creatinine 0.8. sodium improved up to 130. Chest x-ray reporting perihilar and basilar infiltrates persistence, markedly improved. Continues on empiric Zosyn, afebrile. O2 sat in the 90s on 2 L nasal cannula. Procalcitonin 0.1 .maintained on aspirin, Brilinta and beta-praveen. 06/03/2023 remains off of Precedex, sitting up in chair, communicating well. Anxiety controlled, no tremors. CIWA score earlier,2. Chest x-ray reporting improvement, diuresing well on Lasix IV push with 24-hour I&O reporting negative fluid balance. Sodium continues to improve, 133. Bicarb 20, BUN 10, creatinine 1.00. Afebrile, normal WBC, on Zosyn for aspiration pneumonia. Maintaining O2 sats in the 90s on 3 L nasal cannula. Extremely weak, currently sitting up in chair. 06/04/2023 stepdown overflow, bed pending. Ambulated an entire lap around the ICU with PT, tolerating exertion well. Denies chest pain, palpitations or shortness of breath. No cough. Chest x-ray reporting improving right lower lung airspace opacity .afebrile, maintained on Zosyn .no DTs. maintaining O2 sats in the mid 90s on room air. Telemetry sinus rhythm. Potassium 3.4, magnesium 2. Objective - Vital Signs Vital signs: Vital Signs Temp 98.1 F 06/04/23 08:00 Pulse 100 06/04/23 11:25 Resp 20 06/04/23 08:00 BP 110/73 06/04/23 08:00 Pulse Ox 90 L 06/04/23 08:00 FiO2 Intake & Output 06/03/23 06/04/23 06/04/23 18:59 06:59 18:59 Intake Total 480 Output Total 2800 1000 Balance -2320 -1000 Weight 93.8 kg 93.7 kg Intake: IV 240 Piperacillin-Tazobactam 3 100 .375 gm In Sodium Chloride 0.9% 100 ml @ 25 mls/hr IVPB Q8H TERE Rx#: [id number] Sodium Chloride 0.9% 1, 140 000 ml In Empty Bag 1 bag @ 20 mls/hr IV .Q24H TERE Rx#:[id number] Oral 240 Output: Urine 2800 1000 Other: Voiding Method External Catheter Urinal Urinal # Bowel Movements 1 - Exam General: Sitting up in chair, alert and oriented x 3, no acute distress HEENT: [PERRL. Conjunctiva normal.MMM. Neck: Supple, no JVD Cardiac: [Heart regular in rate and rhythm. No murmur auscultated.] Lungs: equal air entry, fine bibasilar crackles Abdomen: Soft, nontender, no guarding, no rigidity, positive bowel sounds. Extremes: [No edema no cyanosis no claudication normal pulses] Skin: [No rash.] Neurologic: Cranial nerves II through XII grossly intact. - Labs CBC & Chem 7: 06/04/23 05:20 06/04/23 05:20 Labs: Abnormal Lab Results - Last 24 Hours (Table) 06/04/23 06/04/23 Range/Units 05:20 05:20 RBC 3.89 L (4.30-5.90) m/uL MCV 101.5 H (80.0-100.0) fL Sodium 136 L (137-145) mmol/L Potassium 3.4 L (3.5-5.1) mmol/L Carbon Dioxide 21 L (22-30) mmol/L BUN 7 L (9-20) mg/dL Calcium 8.3 L (8.4-10.2) mg/dL Microbiology - Last 24 Hours (Table) 06/01/23 02:22 Gram Stain - Final Sputum Sputum Culture - Final Assessment and Plan Assessment: (1) Alcoholic liver disease Current Visit: Yes Status: Acute Code(s): K70.9 - ALCOHOLIC LIVER DISEASE, UNSPECIFIED SNOMED Code(s): 45501359 (2) Acute hypoxic respiratory failure secondary to DTs, STEMI, CHF and pulmonary edema , aspiration pneumonia (3)Chronic obstructive pulmonary disease Current Visit: Yes Status: Acute Code(s): J44.9 - CHRONIC OBSTRUCTIVE PULMONARY DISEASE, UNSPECIFIED SNOMED Code(s): 12212532 (4) Congestive heart failure, systolic dysfunction Current Visit: Yes Status: Acute Code(s): I50.9 - HEART FAILURE, UNSPECIFIED SNOMED Code(s): 06655732 (5) STEMI (ST elevation myocardial infarction) Current Visit: Yes Status: Acute Code(s): I21.3 - ST ELEVATION (STEMI) MYOCARDIAL INFARCTION OF [facility] SITE SNOMED Code(s): 84048184 (6) nonsustained V.T. (7) hypotension suspect exacerbated by CIWA protocol (8) ongoing nicotine dependence (9) history of hepatitis C Plan: Continue on current medication regimen, monitoring and symptomatic treatment. Stepdown overflow. Potassium supplements ordered. PT, increase ambulation as tolerated. Continue aggressive pulmonary toileting with nebulized bronchodilators, Symbicort.maintain antibiotic, dual antiplatelet therapy, beta- praveen, diuretics. Close monitoring of electrolytes, renal function with repeat labs ordered for a.m. discharge planning in progress for possibly tomorrow, pending final DC recommendations and clearance per pulmonary and cardiology. The impression and plan of care has been dictated as directed. : I performed a history and examination of this patient, discussed the same with the dictator. I agree with the dictator's note ,documented as a scribe. Any additional findings or plans will be noted.
[2023-06-05 05:21] LABS: African American GFR (CKD) 80 (>60 ml/min/1.73 sqM); Anion Gap 5 mmol/L; Blood Urea Nitrogen 7 mg/dL (9-20); Calcium 8.7 mg/dL (8.4-10.2); Carbon Dioxide 21 mmol/L (22-30); Chloride 110 mmol/L (98-107); Glucose 93 mg/dL (74-99); Non-African American GFR(CKD) 69 (>60 ml/min/1.73 sqM); Potassium 4.1 mmol/L (3.5-5.1); Sodium 136 mmol/L (137-145)
--- NOTE | 2023-06-05 09:34 | PN ---
PROGRESS NOTE SUBJECTIVE: This is a 63-year-old gentleman with a history of ischemic and nonischemic cardiomyopathy combination who underwent a complex bifurcation stenting of LAD and diagonal. He also has a significant history of alcohol abuse. His ejection fraction is less than 30%. I am recommending that he can be discharged. He is making good progress, but he should go on a LifeVest. I discussed with him the importance of LifeVest and he will follow up with Dr. Lee in 1 week. He will go home on current medications which includes a small dose of beta praveen and losartan, which he is now able to tolerate and we will send him home on LifeVest, dual antiplatelet therapy with aspirin and Brilinta. OBJECTIVE: VITALS: Stable. HEART: S1-S2 heard normally. Short systolic murmur is audible. LUNGS: Reveal good air entry. ABDOMEN: Unchanged. LOWER EXTREMITIES: Unchanged. PLAN: To increase activity LifeVest and possible discharge either today or tomorrow. MMODL / IJN: [id number] /
--- NOTE | 2023-06-05 10:36 | P.DS ---
Providers Date of admission: 05/30/23 04:54 Expected date of discharge: 06/05/23 Attending physician: Sixto Cortes Consults: 05/30/23 05:39 Consult Physician Routine Consulting Provider: [facility] Consult Reason/Comments: Post Interventional Patient Do you want consulting provider notified?: Already Contacted 06/01/23 04:18 Consult Physician Stat Consulting Provider: Genaro Angela Consult Reason/Comments: ICU management, acute DTs Do you want consulting provider notified?: Already Contacted Primary care physician: [facility] Course: (1) Alcoholic liver disease Current Visit: Yes Status: Acute Code(s): K70.9 - ALCOHOLIC LIVER DISEASE, UNSPECIFIED SNOMED Code(s): 40492923 (2) Acute hypoxic respiratory failure secondary to DTs, STEMI, CHF and pulmonary edema , aspiration pneumonia (3)Chronic obstructive pulmonary disease Current Visit: Yes Status: Acute Code(s): J44.9 - CHRONIC OBSTRUCTIVE PULMONARY DISEASE, UNSPECIFIED SNOMED Code(s): 87224872 (4) Congestive heart failure, systolic dysfunction Current Visit: Yes Status: Acute Code(s): I50.9 - HEART FAILURE, UNSPECIFIED SNOMED Code(s): 09019890 (5) STEMI (ST elevation myocardial infarction) Current Visit: Yes Status: Acute Code(s): I21.3 - ST ELEVATION (STEMI) MYOCARDIAL INFARCTION OF [facility] SITE SNOMED Code(s): 96123760 (6) alcoholic cardiomyopathy (7) hyponatremia, suspect beer Potomania, improving (6) nonsustained V.T. (7) hypotension suspect exacerbated by CIWA protocol (8) ongoing nicotine dependence (9) history of hepatitis C Hospital course:patient presents to the emergency room early this morning with chest pain and subsequently went to the catheter lab with Dr. Anup Lee where he underwent a cardiac catheterization secondary to a STEMI, patient underwent angioplasty with 3 stents placed and 2 vessel, I evaluated the patient this morning he was his responses were limited secondary to persistent residual anesthetic, he denied chest pain at this time denied shortness of breath at this time denied nausea and vomiting at this time 05/31/23 Patient seen and examined, does not complain of chest pain. Underwent successful stenting of the bifurcation of the LAD diagonal branch per Dr. Lee cardiology, currently going through withdrawals drinks approximately 8- 20 beers a day he is on the CIwa protocol, also has nicotine patch is a chronic smoker a brief run of nonsustained VT for 10 beats was noted placed on the senna PERRL metoprolol which have been held secondary to hypotension which may be directly because of the Ativan he is getting for alcohol withdrawal. 06/01/2023 DTs, maintained on Precedex drip, recent CIWA score 15. Tachypneic, blood pressure soft, earlier required 10 L high flow nasal cannula currently weaned down to 3 L nasal cannula maintaining O2 sats in the mid 90s. Echocardiogram reporting severely impaired left ventricular systolic function with segmental wall motion abnormality, EF 25 to 30%, moderate mitral with mild tricuspid regurgitation and mild aortic regurgitation, no evidence of pulmonary hypertension. Chest x-ray reported continued pulmonary vascular congestion with scattered infiltrates and small effusions. 06/02/2023 sensorium significantly improved .Precedex has been off for a couple hours, CIWA score improving. Diuresing well on Lasix IV push. Bicarb 17, creatinine 0.8. sodium improved up to 130. Chest x-ray reporting perihilar and basilar infiltrates persistence, markedly improved. Continues on empiric Zosyn, afebrile. O2 sat in the 90s on 2 L nasal cannula. Procalcitonin 0.1 .maintained on aspirin, Brilinta and beta-praveen. 06/03/2023 remains off of Precedex, sitting up in chair, communicating well. Anxiety controlled, no tremors. CIWA score earlier,2. Chest x-ray reporting improvement, diuresing well on Lasix IV push with 24-hour I&O reporting negative fluid balance. Sodium continues to improve, 133. Bicarb 20, BUN 10, creatinine 1.00. Afebrile, normal WBC, on Zosyn for aspiration pneumonia. Maintaining O2 sats in the 90s on 3 L nasal cannula. Extremely weak, currently sitting up in chair. 06/04/2023 stepdown overflow, bed pending. Ambulated an entire lap around the ICU with PT, tolerating exertion well. Denies chest pain, palpitations or shortness of breath. No cough. Chest x-ray reporting improving right lower lung airspace opacity .afebrile, maintained on Zosyn .no DTs. maintaining O2 sats in the mid 90s on room air. Telemetry sinus rhythm. Potassium 3.4, magnesium 2. 06/05/2023 significant clinical improvement. Continue O2 sats in the high 90s on room air. Denies lightheadedness, dizziness or focal deficits. Has not yet ambulated today, pending. Cleared by cardiology for discharge. Patient will be discharged home today, condition with guarded prognosis, to [facility] and then proceeding to substance abuse rehab pending [facility], final DC recommendations and clearance per pulmonary. The impression and plan of care has been dictated as directed. : I performed a history and examination of this patient, discussed the same with the dictator. I agree with the dictator's note ,documented as a scribe. Any additional findings or plans will be noted. Patient Condition at Discharge: Stable Plan - Discharge Summary Discharge Rx Participant: Yes New Discharge Prescriptions: New Amoxic-Pot Clav 875-125Mg [Augmentin 875-125] 1 each PO Q12HR 7 Days #14 tab Nicotine 21Mg/24Hr Patch [Habitrol] 1 patch TRANSDERM DAILY patch Furosemide [Lasix] 40 mg PO BID@0900,1600 #60 tab Nitroglycerin Sl Tabs [Nitrostat] 0.4 mg SUBLINGUAL Q5M PRN #100 tab PRN Reason: Chest Pain Ticagrelor [Brilinta] 90 mg PO BID #60 tab Losartan [Cozaar] 12.5 mg PO DAILY #30 tab Atorvastatin [Lipitor] 80 mg PO HS #30 tab Metoprolol Tartrate [Lopressor] 12.5 mg PO BID #60 tab Thiamine [Vitamin B-1] 100 mg PO DAILY tab Potassium Chloride ER [K-Dur 20] 20 meq PO DAILY #30 tab Continue Albuterol Inhaler [Ventolin Hfa Inhaler] 1 - 2 puff INHALATION RT-Q6H PRN PRN Reason: Shortness Of Breath Montelukast [Singulair] 10 mg PO HS Aspirin EC [Ecotrin Low Dose] 81 mg PO DAILY Omeprazole 20 mg PO DAILY Fluticasone/Umeclidin/Vilanter [Trelegy Ellipta 100-62.5-25] 1 puff INHALATION RT-DAILY Tiotropium Wenden [Spiriva Handihaler] 18 mcg INHALATION RT-DAILY Discontinued lisinopriL [Zestril] 5 mg PO DAILY Pravastatin Sodium [Pravachol] 10 mg PO HS Discharge Medication List Albuterol Inhaler [Ventolin Hfa Inhaler] 1 - 2 puff INHALATION RT-Q6H PRN 09/28/18 [History] Aspirin EC [Ecotrin Low Dose] 81 mg PO DAILY 09/28/18 [History] Montelukast [Singulair] 10 mg PO HS 09/28/18 [History] Fluticasone/Umeclidin/Vilanter [Trelegy Ellipta 100-62.5-25] 1 puff INHALATION RT-DAILY 05/30/23 [History] Omeprazole 20 mg PO DAILY 05/30/23 [History] Tiotropium Wenden [Spiriva Handihaler] 18 mcg INHALATION RT-DAILY 05/30/23 [History] Amoxic-Pot Clav 875-125Mg [Augmentin 875-125] 1 each PO Q12HR 7 Days #14 tab 06/05/23 [Rx] Atorvastatin [Lipitor] 80 mg PO HS #30 tab 06/05/23 [Rx] Furosemide [Lasix] 40 mg PO BID@0900,1600 #60 tab 06/05/23 [Rx] Losartan [Cozaar] 12.5 mg PO DAILY #30 tab 06/05/23 [Rx] Metoprolol Tartrate [Lopressor] 12.5 mg PO BID #60 tab 06/05/23 [Rx] Nicotine 21Mg/24Hr Patch [Habitrol] 1 patch TRANSDERM DAILY patch 06/05/23 [Rx] Nitroglycerin Sl Tabs [Nitrostat] 0.4 mg SUBLINGUAL Q5M PRN #100 tab 06/05/23 [Rx] Potassium Chloride ER [K-Dur 20] 20 meq PO DAILY #30 tab 06/05/23 [Rx] Thiamine [Vitamin B-1] 100 mg PO DAILY tab 06/05/23 [Rx] Ticagrelor [Brilinta] 90 mg PO BID #60 tab 06/05/23 [Rx] Follow up Appointment(s)/Referral(s): Cristopher Munoz MD [Primary Care Provider] - 3 Days Ambulatory/Diagnostic Orders: Complete Blood Count w/diff [LAB.AMB] Time Frame: 3 Days, Location: None Selected Discharge/Stand Alone Forms: AA Meetings [place], Outpatient Counseling, Inp Substance Abuse Facilities
--- NOTE | 2023-06-05 11:13 | P.PN ---
Subjective Progress Note Date: 06/05/23 63-year-old male patient, currently being seen in the intensive care unit post acute non-ST segment elevation myocardial infarction. The patient was admitted on 05/30/2023 because of progressive shortness of breath over several days. Troponins peaked at 8. Patient underwent cardiac catheterization and he received 2 overlapping stents involving the diagonal and PCI involving the mid LAD. The patient is a chronic alcoholic and he drinks around 10 beers on a daily basis. Overnight, the patient became progressively more agitated than restless and he went into alcohol withdrawal with delirium tremens. Based on that, the patient was started on Precedex which is currently running at 1 mcg/kg/h. He is currently on oxygen 3 L/min nasal cannula. Chest x-ray was showing increased pulm vascular marking and increased consolidation of the right lung base and aspiration was suspected. The patient was already on Augmentin orally and I switched her to IV Zosyn as the patient is unable to swallow at t his point in time. Precedex dose is being titrated accordingly. IV fluids are currently acceptable. The patient was treated with a dose of Lasix with adequate urine output and some interval improvement in the patient's oxygenation. The patient is known to have COPD, hypertension, chronic hepatitis C and chronic liver disease secondary to hepatitis C and alcoholism. He has received a total of 5 mg of Ativan within the last couple hours. He has also been receiving Valium 2 mg p.o. 3 times daily. Patient has been started on Precedex. The blood work from today shows a WBC count of 11.6, hemoglobin 15.3 and a platelet count of 216. Sodium level is down to 121. BUN is 11 with a creatinine of 0.5 and a potassium level is at 4.3. Serum bicarb is at 18 with an anion gap of 5. Procalcitonin level is at 0.1. LFTs are showing an AST of 36, ALT of 63 and a total bilirubin is at 0.9. On today's evaluation of 08/01/2023, the patient is much more calm and comfortable. He is arousable and is communicating. He is still lethargic and slightly shaky. Nevertheless, he was able to take his oral medication and take some oral feeds. He is still on Precedex which is running at 0.2 mcg/kg/h and he is also on oxygen at 3 L/min nasal cannula. Note that the patient's chest x- ray showing increased pulm vascular congestion and edema. The chest x-ray from yesterday was more consistent with a right lower lobe pneumonia and this morning I am more convinced that this is more consistent with CHF. The patient remains on IV Lasix 20 mg IV every 12 hours and is producing adequate amount of urine output.Meanwhile, he has echocardiogram that was done yesterday on 06/01/2023 showed severe impairment of LV function with segmental wall motion abnormalities. The patient has moderate mitral regurgitation and mild tricuspid regurgitation. No evidence of any pulmonary hypertension. Estimated ejection fraction is around 25 to 30%. Also, the blood work shows a WBC count of 7.6 with a hemoglobin 13.8 and a platelet count of 214. BUN is at 15 with a creatinine of 0.8. Serum bicarb is at 17 and his sodium level is at 130. IV fluids are currently at KVO as the patient is being diuresed. The patient is negative fluid balance. He remains on aspirin and Brilinta. He is also on metoprolol 12.5 mg twice a day. Cardiology on the case. He is on high-dose statins. On 06/03/2023, I am seeing the patient for a follow-up. The patient is currently off Precedex and the patient was taken off Precedex yesterday at around 11 AM. Alert and oriented and he is communicating. No tremors. No encephalopathy. No reported chest pain. He is currently on room air oxygen and the patient has produced approximately 1.5 L of negative fluid balance over the past 24 hours while being on IV Lasix. Meanwhile, the echocardiogram showed impaired LV function with an ejection fraction of 25 to 30%. For now, the patient remains on a combination of aspirin and Brilinta. The chest x-ray from today showing improvement in the pulmonary edema. There is some residual right lower lobe pulmonary infiltrate consistent with aspiration pneumonia and the patient remains on IV Zosyn. The patient is afebrile and hemodynamically stable the patient is also on metoprolol 12.5 mg twice a day. He receives also updrafts [id number].In terms of his labs, WBC count of 8.3 with a hemoglobin of 13 and a platelet count of 266, BUN is at 10 with a creatinine of 1 and sodium levels at 133. On today's evaluation of 06/04/2023, I am seeing the patient for a follow-up. No signs of any acute delirium tremors and the patient is fully recovered from his DT. The patient is otherwise resting comfortably bed up-to-date is affected by nasal cannula and is also being treated for an aspiration right lower lobe pneum onia. Repeat chest x-ray was done that showed improvement in the right lower lobe pulm infiltrate. The patient is currently on 2 L of oxygen by nasal cannula. No chest pain. No cough congestion or sputum production. Cardiac rhythm is sinus. The white cell count is at 7 with a hemoglobin 15.1 and a platelet count of 290. BUN is at 7 with a creatinine of 0.9 and a sodium level of 136. The patient has no other complaints otherwise for now. The patient is currently on a combination of aspirin and Brilinta. The patient is also on metoprolol 12.5 mg twice a day. The patient has been switched to oral Lasix 40 mg p.o. twice a day. Echocardiogram showed significant LV with an EF around 25 to 30%. On 06/05/2023, the patient has no specific complaints. The patient is calm and comfortable. The patient is currently on room air oxygen. Remains on IV Zosyn. Hemodynamically stable. Clinically stable. BUN is at 7 with a creatinine of 1.1 and his sodium levels at 136 with a potassium level of 4.1. The patient is afebrile. The patient is hemodynamically stable. No altered mentation. No focal neurological deficits. Cardiac medication remains unchanged. Objective - Vital Signs Vital signs: Vital Signs Temp 97.9 F 06/05/23 08:00 Pulse 75 06/05/23 08:00 Resp 11 L 06/05/23 08:00 BP 111/79 06/05/23 08:00 Pulse Ox 97 06/05/23 08:00 FiO2 Intake & Output 06/04/23 06/05/23 06/05/23 18:59 06:59 18:59 Intake Total 100 340 Output Total 850 800 650 Balance -750 -800 -310 Weight 93.3 kg Intake: IV 100 340 Piperacillin-Tazobactam 3 100 100 .375 gm In Sodium Chloride 0.9% 100 ml @ 25 mls/hr IVPB Q8H [facility] Rx#: [id number] Sodium Chloride 0.9% 1, 240 000 ml In Empty Bag 1 bag @ 20 mls/hr IV .Q24H [facility] Rx#:[id number] Output: Urine 850 800 650 Other: Voiding Method Urinal Urinal Urinal # Voids 3 # Bowel Movements 1 1 - Exam GENERAL EXAM: Alert and oriented x 3 currently on room air oxygen, subsequently placed on 2 L of oxygen by nasal cannula HEAD: Normocephalic and atraumatic EYES: Normal reaction of pupils, equal size. NOSE: Clear with pink turbinates. THROAT: No erythema or exudates. NECK: No masses, no JVD. CHEST: No chest wall deformity. LUNGS: Equal air entry bibasilar inspiratory crackles and mild end expiratory wheezes. No conversational dyspnea or accessory muscle use.. CVS: S1 and S2 normal with no audible murmur, regular rhythm. No extra heart sounds ABDOMEN: No hepatosplenomegaly, active bowel sounds, no guarding or rigidity. SPINE: No scoliosis or deformity SKIN: No rashes CENTRAL NERVOUS SYSTEM: A neurologically, the patient is awake and alert and the patient does not have any focal neurological deficit. Cranial nerves are essentially intact. EXTREMITIES: There is no peripheral edema, clubbing, or cyanosis. Peripheral pulses are intact. - Labs CBC & Chem 7: 06/04/23 05:20 06/05/23 04:53 Labs: Abnormal Lab Results - Last 24 Hours (Table) 06/05/23 Range/Units 04:53 Sodium 136 L (137-145) mmol/L Chloride 110 H (98-107) mmol/L Carbon Dioxide 21 L (22-30) mmol/L BUN 7 L (9-20) mg/dL Assessment and Plan Plan: Acute hypoxic respiratory failure improved and the patient is currently on room air oxygen. Chest x-ray is consistent with CHF and pulmonary edema. The patient was diuresed and repeat chest x-ray from today showing improvement in volume status and the patient has some residual right lower lobe pulm infiltrates consistent with pneumonia in the possibility of aspiration pneumonia involving the right lower lobe cannot be completely excluded. The patient remains on Zosyn and diuretics. Echocardiogram was completed and the patient has impaired ejection fraction along with segmental wall motion abnormalities. Ejection fraction is in order of 20 to 25%. Delirium tremens, recovered and the patient is currently off Precedex Coronary artery disease Acute ST segment elevation myocardial infarction, postcardiac catheterization, CAD as described above including 40% ostial LAD, 99% ostial diagonal 1, 60-70% mid LAD stenosis, 50% circumflex, 100% mid RCA stenosis S/p PCI diagonal 1 with overlapping 2.0 x 26 mm and 2.0 x 18 mm Adalberto ANÍBAL, PCI proximal to mid LAD with 2.75 x 38mm Xience ANÍBAL, postdilated with a 3.0 noncompliant balloon CHF with elevated left sided filling pressures. Suspect underlying systolic heart failure. Echocardiogram still pending for now. Based on the primary reports, the patient has impaired LV function with an ejection fraction of 25 to 30%. Rule out underlying ischemic versus alcoholic cardiomyopathy. Hyponatremia, rule out beer potomania, sodium level is improved Alcoholism Chronic obstructive pulmonary disease, stable Chronic ongoing tobacco dependence Hyperlipidemia History of hypertension History of hepatitis C Plan Clinically stable and improving Patient is currently on room air oxygen Keep the IV fluids at KVO Discontinue the IV Zosyn and put the patient on oral Augmentin for the next 5 days Monitor sodium level, improved, improved Continue Lasix 40 mg twice a day Continue aspirin Continue Brilinta Metoprolol 12.5 mg p.o. twice a day DuoNeb nebulizer treatments [id number] Continue Symbicort High-dose statins Patient can be transferred to a cardiac floor, 3 S. versus discharge
[2023-06-05 17:55] VITALS: BP 102/72; PULSE 74; RESP 28; TEMP 98
[2023-06-05] MEDS ORDERED: AMOXIC-POT CLAV 875-125MG 1 EACH TAB PO SCH (21:00)
--- NOTE | 2023-06-10 11:18 | CDI ---
Documentation Clarification Form Date: 06/10/2023 11:01:16 AM From: Yoana Bourgeois Phone: Admit Date: 05/30/2023 04:54:00 AM Patient Name: Ganga Anderson Visit Number: [id number] Discharge Date: 06/05/2023 07:30:00 PM ATTENTION: The Clinical Documentation Specialists (CDI) and [facility] Coding Staff appreciate your assistance in clarifying documentation. Please respond to the clarification below the line at the bottom and electronically sign. The CDI & [facility] Coding staff will review the response and follow-up if needed. Please note: Queries are made part of the Legal Health Record. If you have any questions, please contact the author of this message via ITS. Dr. Sixto Cortes Your patient has the documented diagnosis of systolic heart failure per Consult 06/01. Additional information regarding the acuity of systolic CHF is requested. History/Risk Factors: 63yo M, STEMI, ETOH liver dz & CM w DTs, ICM, AHRF, COPD, MR, TR, AR, HTN, HLD, Hx Hep C Clinical Indicators: VS/Pulse OX: O2 Sat 86 L 90 L 90 L 05/30 BNP: 4140 Echocardiogram Results: SeverelyimpairedLV systolic function with segmental wall motionabnormality. Moderate MR with mildTR & AR. No evidence ofPHTN Chest x ray: Bilateral mid tolower lung edemaand/oracuteinfiltrateson currentstudyfelt present. Correlate clinically forsuspectedfluid overload state. Treatment: CXRreporting improvement, diuresing well on Lasix IV push with 24- hour I O reporting negative fluid balance. NA continues to improve, 133 Bicarb 20, BUN 10, creatinine 1.00. In your professional opinion, can you please clarify the acuity of systolic CHF, if known? [ ] Acute Systolic Heart Failure (reduced EF) [ ] Chronic Systolic Heart Failure (reduced EF) [ ] Acute on Chronic Systolic Heart Failure (reduced EF) [ ] Other, please specify__alcoholic cardiomyopathy [ ] Unable to determine (Template Last Revised: May 2020) MTDD
== END 2023-06-05 19:30 | disposition home or self-care (01) | DRG 174 ==
LOC: EC 02:38 → 2SICU 04:54 → 3SCARD 06-03 11:38 → 2SICU 06-03 11:39
PROVIDERS: ADMIT Family Medicine; ATTEND Family Medicine
PROC: 0270366 Dilation of Coronary Artery, One Artery, Bifurcation, with Three Drug-eluting Intraluminal Devices, Percutaneous Approach (ICD-10-PCS; principal; 2023-05-30 03:15)
PROC: 4A023N7 Measurement of Cardiac Sampling and Pressure, Left Heart, Percutaneous Approach (ICD-10-PCS; 2023-05-30 03:15)
PROC: B2111ZZ Fluoroscopy of Multiple Coronary Arteries using Low Osmolar Contrast (ICD-10-PCS; 2023-05-30 03:15)
PROC: B240ZZ3 Ultrasonography of Single Coronary Artery, Intravascular (ICD-10-PCS; 2023-05-30 03:15)
PROC: HZ2ZZZZ Detoxification Services for Substance Abuse Treatment (ICD-10-PCS; 2023-05-31)
PROC: 5A0935A Assistance with Respiratory Ventilation, Less than 24 Consecutive Hours, High Flow/Velocity Cannula (ICD-10-PCS; 2023-06-01)
DX: I21.09 ST elevation (STEMI) myocardial infarction involving other coronary artery of anterior wall (principal); J96.01 Acute respiratory failure with hypoxia; J69.0 Pneumonitis due to inhalation of food and vomit; F10.231 Alcohol dependence with withdrawal delirium; I42.6 Alcoholic cardiomyopathy; I47.29 Other ventricular tachycardia; F03.90 Unspecified dementia, unspecified severity, without behavioral disturbance, psychotic disturbance, mood disturbance, and anxiety; K70.10 Alcoholic hepatitis without ascites; K70.9 Alcoholic liver disease, unspecified; J44.9 Chronic obstructive pulmonary disease, unspecified; B18.2 Chronic viral hepatitis C; I25.119 Atherosclerotic heart disease of native coronary artery with unspecified angina pectoris; T17.818A Gastric contents in other parts of respiratory tract causing other injury, initial encounter; E87.1 Hypo-osmolality and hyponatremia; I95.89 Other hypotension; I11.9 Hypertensive heart disease without heart failure; I08.3 Combined rheumatic disorders of mitral, aortic and tricuspid valves; I25.5 Ischemic cardiomyopathy; F17.210 Nicotine dependence, cigarettes, uncomplicated; E78.5 Hyperlipidemia, unspecified; S76.219A Strain of adductor muscle, fascia and tendon of unspecified thigh, initial encounter; I25.2 Old myocardial infarction; Z95.5 Presence of coronary angioplasty implant and graft; Z79.02 Long term (current) use of antithrombotics/antiplatelets; Z79.1 Long term (current) use of non-steroidal anti-inflammatories (NSAID); Z82.49 Family history of ischemic heart disease and other diseases of the circulatory system; Z79.51 Long term (current) use of inhaled steroids; Z79.82 Long term (current) use of aspirin; Z28.310 Unvaccinated for COVID-19; Z79.899 Other long term (current) drug therapy
CPT/HCPCS: 36415; 71045; 76937; 80048; 80053; 82565; 83605; 83735; 83880; 84145; 84484; 85025; 85027; 85379; 85610; 85730; 87070; 87205; 92978; 92979; 93005; 93306; 93458; 94640; 96374; 96375; 99291

== ENCOUNTER → 2023-11-09 | Outpatient (CLI) | payer OTHER ==
[2023-11-09 19:20] LABS: Blood Urea Nitrogen 13.6 mg/dL (9.0-27.0); Chloride 103 mmol/L (96-109); Sodium 139 mmol/L (135-145)
[2023-11-09 19:21] LABS: Carbon Dioxide 22.9 mmol/L (21.6-31.8)
[2023-11-09 20:21] LABS: HCT 45.3 % (39.6-50.0); HGB 14.9 g/dL (13.0-17.0); MCH 31.2 pg (27.0-32.0); MCHC 32.9 g/dL (32.0-37.0); MCV 94.8 FL (80.0-97.0); Mean Platelet Volume 11.2 FL (9.5-12.2); NRBC Per 100 WBC 0 X 10*3/uL (0.00-0.01); Platelet Count 219 X 10*3/uL (140-440); RBC 4.78 X 10*6/uL (4.40-5.60); RDW 13.1 % (11.5-14.5)
== END | disposition home or self-care (01) ==
LOC: LABPAT 14:21
PROVIDERS: ATTEND Internal Medicine Clinical Cardiac Electrophysiology
DX: Z01.812 Encounter for preprocedural laboratory examination (principal); I50.9 Heart failure, unspecified; I25.5 Ischemic cardiomyopathy
CPT/HCPCS: 36415; 80051; 82565; 84520; 85027

== ENCOUNTER 2023-11-17 12:46 | Day surgery (SDC) | payer OTHER ==
[2023-11-13 11:43] VITALS: BMI 26.6
[2023-11-17 14:19] VITALS: PULSE 67
[2023-11-17] MEDS: SODIUM CHLORIDE 0.9% 1,000 ML IV SCH (14:20)
[2023-11-17] MEDS: IV FLUID CONTINUATION 1,000 ML IV ONE (14:20)
[2023-11-17 14:29] LABS: Glucose,Whole Blood 90 mg/dL (70-110)
[2023-11-17 14:36] LABS: ALT 30 U/L (4-49); AST 41 U/L (17-59); African American GFR (CKD) >90 (>60 ml/min/1.73 sqM); Albumin 4.4 g/dL (3.5-5.0); Alkaline Phosphatase 92 U/L (38-126); Anion Gap 8 mmol/L; Blood Urea Nitrogen 21 mg/dL (9-20); Calcium 9.3 mg/dL (8.4-10.2); Carbon Dioxide 28 mmol/L (22-30); Chloride 103 mmol/L (98-107); Glucose 92 mg/dL (74-99); Non-African American GFR(CKD) 83 (>60 ml/min/1.73 sqM); Potassium 4.9 mmol/L (3.5-5.1); Sodium 139 mmol/L (137-145); Total Bilirubin 1.2 mg/dL (0.2-1.3); Total Protein 7.5 g/dL (6.3-8.2)
[2023-11-17] MEDS ORDERED: LIDOCAINE 1% INJ 10MG/ML (20 ML MDV) ONE (14:55)
[2023-11-17] MEDS ORDERED: PHENYLEPHRINE 10 MG/ML VIAL ONE (15:00)
[2023-11-17] MEDS ORDERED: PROPOFOL 10 MG/ML 20 ML VIAL IV ONE (15:00)
[2023-11-17] MEDS ORDERED: ePHEDrine 50 MG/ML 1 ML VIAL ONE (15:00)
[2023-11-17] MEDS ORDERED: MIDAZOLAM 2 MG/2 ML VIAL ONE (15:00)
[2023-11-17] MEDS ORDERED: fentaNYL (PF) 50 MCG/ML 2 ML AMP ONE (15:00)
[2023-11-17] MEDS ORDERED: KETAMINE HCL IN 0.9 % NACL 50 MG/5 ML SYRINGE ONE (15:00)
[2023-11-17] MEDS: IOPAMIDOL-370 100ML BTL INJ ONE (15:16)
[2023-11-17] MEDS: LIDOCAINE 1% INJ 10MG/ML (20 ML MDV) SQ ONE (15:50)
[2023-11-17] MEDS: ROPIVACAINE 5MG/ML 20ML VIAL MISCELLANE ONE (15:50)
[2023-11-17] MEDS: ceFAZolin 1 GM in SODIUM CHLORIDE 0.9% IRRIG BTL 250 ML IRRIGATION PRN (16:41)
[2023-11-17] MEDS: HEPARIN SODIUM,PORCINE (1 ML) 2,500 UNIT in SODIUM CHLORIDE 0.9% 250 ML IRRIGATION ONE (16:41)
--- NOTE | 2023-11-17 17:02 | P.EPPROC ---
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 Conti Result: Single chamber ICD implantation, RV ICD lead: [employer] Pacing threshold 0.75 V at 0.5 ms, R waves greater than 12 mV and pacing impedance 660 ohms High-voltage impedance 81 ohms Leads screwed in the low RV septum just above the apex 10 V test negative ICD generator: [employer] [place], VR, ICD Procedure details: Patient was brought to the EP lab in a fasting state. Written informed consent was obtained prior to the procedure. Options, pros and cons, benefits and risks and complications discussed with patient in detail prior to the procedure (shared decision making document, from [facility]). Importance of continuing medical treatment emphasized. Alternatives discussed. Patient would like to proceed with ICD implant. Left upper extremity venogram performed. 15 mL IV dye injected in the left arm. Patent axillary/subclavian vein The left pectoral area was prepped and draped as a protocol. IV antibiotics administered 1% lidocaine was used for local anesthesia. A 4 cm incision was made parallel to the deltopectoral groove, about 1.5 cm medial to it. The inc ision was carried down to the level of the pectoralis muscle and the subfascial pocket was made. Hemostasis was assured. The axillary vein access was obtained. Appropriately sized venous sheath was placed. ICD lead implanted in the right ventricle and screwed in. ICD lead tested for threshold, sensing, impedances and tested with high output pacing for diaphragmatic stimulation Lead secured to the underlying transverse muscle after removing sheaths . Pocket irrigated with antibiotic solution. Antibiotic pouch placed transferred to Leads connected to the ICD generator. Wound closed in 3 layers and dressed per protocol ICD was interrogated and programmed. Appropriate pacing parameters, antitachycardia therapies with antitachycardia pacing cardioversion defibrillations programmed. Patient tolerated the procedure well without any acute complications. See scanned device report in EMR for lead details
[2023-11-17] MEDS ORDERED: ACETAMINOPHEN TAB 325 MG TAB PO PRN (17:03)
--- NOTE | 2023-11-17 17:14 | P.EPPROC ---
- EP Procedure Note Electrophysiology Procedure Note: Defibrillation level testing VF was induced Appropriately detected without any dropouts at least sensitivity and successfully internally defibrillated with a 10 J shock Charge time 1.8 seconds, high-voltage impedance 81 ohms No post shock noise RV polarity was anodal Impression successful defibrillation at 10 J for ventricular fibrillation Device tachy therapies programmed accordingly
--- NOTE | 2023-11-17 17:36 | XR ---
EXAMINATION TYPE: XR chest 1V portable DATE OF EXAM: 11/17/2023 HISTORY: Shortness of breath. COMPARISON: 06/04/2023 TECHNIQUE: Single view of the chest is submitted. FINDINGS: Demonstrated are scattered senescent parenchymal change. There is no evidence for focal infiltrate. Single-lead pacer device with distal lead within the right ventricle. No pneumothorax present. The heart is stable. Hilar and mediastinal structures are within normal limits. Degenerative changes are seen of the dorsal spine. IMPRESSION: 1. Chronic changes without evidence for acute pulmonary disease.
[2023-11-17 18:25] VITALS: RESP 16; TEMP 97.5
[2023-11-17 18:47] VITALS: BP 109/75
[2023-11-17] MEDS: LACTATED RINGERS 1,000 ML IV SCH (18:59)
[2023-11-17] MEDS ORDERED: MONTELUKAST 10 MG TAB PO SCH (21:00)
[2023-11-17] MEDS ORDERED: ATORVASTATIN 80 MG TAB PO SCH (21:00)
[2023-11-17] MEDS ORDERED: METOPROLOL TARTRATE 12.5 MG TAB PO SCH (21:00)
[2023-11-18] MEDS ORDERED: TIOTROPIUM 2.5 MCG INHALER INHALATION SCH (08:00)
[2023-11-18] MEDS ORDERED: POTASSIUM CHLORIDE ER 20 MEQ TAB.ER PO SCH (09:00)
[2023-11-18] MEDS ORDERED: ASPIRIN 81 MG PO SCH (09:00)
[2023-11-18] MEDS ORDERED: CLOPIDOGREL 75 MG TAB PO SCH (09:00)
[2023-11-18] MEDS ORDERED: DAPAGLIFLOZIN PROPANEDIOL 5 MG TABLET PO SCH (09:00)
[2023-11-18] MEDS ORDERED: PANTOPRAZOLE 40 MG TABLET PO SCH (09:00)
[2023-11-18] MEDS ORDERED: LOSARTAN 25 MG TAB PO SCH (09:00)
[2023-11-18] MEDS ORDERED: FUROSEMIDE 40 MG TAB PO SCH (09:00)
[2023-11-18] MEDS ORDERED: SPIRONOLACTONE 25 MG TAB PO SCH (09:00)
[2023-11-18] MEDS ORDERED: THIAMINE 100 MG TAB PO SCH (09:00)
== END 2023-11-17 20:17 | disposition home or self-care (01) ==
LOC: CATHEP 12:46 → 6NMEDSUR 16:50 → CATHEP 20:17
PROVIDERS: ATTEND Internal Medicine Clinical Cardiac Electrophysiology
DX: I25.5 Ischemic cardiomyopathy (principal); I25.10 Atherosclerotic heart disease of native coronary artery without angina pectoris; I25.2 Old myocardial infarction; I50.22 Chronic systolic (congestive) heart failure; I71.9 Aortic aneurysm of unspecified site, without rupture; Z79.82 Long term (current) use of aspirin; Z79.02 Long term (current) use of antithrombotics/antiplatelets; Z79.899 Other long term (current) drug therapy
CPT/HCPCS: 93641; 33249; 80053; 84443; 71045; C1769 ×2; C1722; C1892; C1777; J2250; J1644; J0690; J2001; J3010; J2704; Q9967; J2795; J2371

== ENCOUNTER 2024-02-08 19:49 | Outpatient (CLI) | payer OTHER ==
--- NOTE | 2024-02-17 22:35 | P.PCN ---
Date of Procedure: 02/08/24 Operative Findings: History This is a 63-year-old male patient was being seen in the sleep center due to co ncerns of sleep apnea. The patient was recently seen in the hospital for acute non-ST segment elevation myocardial infarction. The patient was hospitalized for progressive worsening shortness of breath. He had an acute and NSTEMI and based on that he was admitted to the intensive care unit. The patient also is a known alcoholic and he went into alcohol withdrawal delirium tremens during his hospital stay. His condition gradually improved. The patient was taken off the Precedex infusion. The patient also underwent a cardiac catheterization and he was found to have significant coronary artery disease and the patient underwent a PCI of the diagonal branch with an overlapping stent, PCI of the mid LAD and his echocardiogram showed impaired LV function with an EF of around 20 to 25%. Following his discharge, the patient was given a LifeVest which she is going to wear for the next few months and have an echocardiogram repeated to decide if AICD will be of benefit for him. He is known to have alcoholism, COPD, hypertension hyperlipidemia and hepatitis C. This is in addition to his coronary artery disease and cardiomyopathy with impaired LV function. This could be alcoholic versus ischemic in nature. During his hospital stay, the patient was also noted to have apneas essentially obstructive and for that reason he was referred to the sleep center to undergo a further testing regarding possibility of SAL. Since his discharge from the hospital, the patient has not smoked since then. He is going to bed from midnight waking up 6:30 AM in the morning. No major hypersomnia or sleepiness during the day. Drinking 3 cups of coffee in the morning. No history of obesity. Body mass index is 24.3 Pertinent physical findings The height is 5 feet and 9 inches, weight is 182 with a BMI of 26.9 Technical description The patient was studied using a standard complex polysomnography protocol that included recording of the Lead II EKG, Central, occipital and frontal EEG, right and left outer canthus EOG, submental EMG, right and left anterior tibialis EMG, respiratory airflow by thermocouple and or pressure/flow transducer, respiratory efforts by abdominal and thoracic PVDF belts, oxygen saturation by cable oximetry. Position by observation synchronized the PSG. Equipment used: [employer]. Sleep characteristics The total recording duration was 408.5 minutes. The total sleep time was 306.5 minutes. The overall sleep efficiency was calculated to be 75% the wake after sleep onset time was 38 minutes. The sleep was characterized by 2.1% stage I, 55.1% stage II, 0% stage III and 25.8% of sleep. Latency to REM sleep was 85.5 minutes. The total arousal index is 26.4 Respiratory analysis The patient had a total of 138 obstructive events of which 3 were obstructive apneas, 0 mixed apneas and a total of 135 episodes of obstructive hypopneas and the resulting AHI was 25.4. Oxygenation analysis The baseline pulse ox is in the order of 95% while awake. Lowest oxygen saturation was 88% during non-REM sleep. The minimum pulse ox during REM sleep was 90%. The patient spent approximately 30 minutes of sleep time below pulse ox of 89% Sleep continuity The patient had a total of 186 arousals with an index of 36.4. Respiratory arousal index was 9.6 Periodic limb movements None Cardiac summary Average heart rate was 72 with a minimum heart rate of 63 and a maximum heart of 78. The underlying cardiac rhythm was sinus. Assessment Obstructive sleep apnea, moderate in severity with an AHI of 25.4 Mild nocturnal oxygen saturations High arousal index and sleep fragmentation [place] score is at 4. Body mass index is 24.3. History of alcoholism with a previous history of delirium tremens occurred during a recent hospitalization, and the patient is currently not drinking alcohol. Coronary artery disease , post acute ST segment elevation myocardial infarction, postcardiac catheterization, CAD as described above including 40% ostial LAD, 99% ostial diagonal 1, 60-70% mid LAD stenosis, 50% circumflex, 100% mid RCA stenosis S/p PCI diagonal 1 with overlapping 2.0 x 26 mm and 2.0 x 18 mm Adalberto ANÍBAL, PCI proximal to mid LAD with 2.75 x 38mm Xience ANÍBAL, postdilated with a 3.0 noncompliant balloon CHF with elevated left sided filling pressures. has impaired LV function with an ejection fraction of 25 to 30%. Rule out underlying ischemic versus alcoholic cardiomyopathy. Echocardiogram was completed and the patient has impaired ejection fraction along with segmental wall motion abnormalities. Ejection fraction is in order of 20 to 25%. Alcoholism the patient drinks around 18 beers on a daily basis. Chronic obstructive pulmonary disease, stable Chronic ongoing tobacco dependence Hyperlipidemia History of hypertension History of hepatitis C Plan Proceed with CPAP titration for symptomatic obstructive sleep apnea. No evidence of any Jaden-Salomon breathing. No evidence of any central apneas. For now, the patient is postcardiac catheterization and stenting and the patient will have a follow-up echocardiogram in few months time to reevaluate his LV function and decide if any ICD will be needed.
== END 2024-02-09 05:50 | disposition home or self-care (01) ==
LOC: 3 N SLEEP 19:49
PROVIDERS: ATTEND Internal Medicine Critical Care Medicine
DX: G47.33 Obstructive sleep apnea (adult) (pediatric) (principal); G47.10 Hypersomnia, unspecified; F17.200 Nicotine dependence, unspecified, uncomplicated; I25.10 Atherosclerotic heart disease of native coronary artery without angina pectoris; I21.3 ST elevation (STEMI) myocardial infarction of unspecified site; F10.231 Alcohol dependence with withdrawal delirium; I11.0 Hypertensive heart disease with heart failure; I50.9 Heart failure, unspecified; E78.5 Hyperlipidemia, unspecified; J44.9 Chronic obstructive pulmonary disease, unspecified; Z95.5 Presence of coronary angioplasty implant and graft; Z86.19 Personal history of other infectious and parasitic diseases; Z79.02 Long term (current) use of antithrombotics/antiplatelets; Z79.899 Other long term (current) drug therapy
CPT/HCPCS: 95810

== ENCOUNTER → 2024-02-09 | Outpatient (CLI) | payer OTHER ==
[2024-02-09 15:38] LABS: ALT 12 U/L (10-49); AST 19 U/L (14-35); Albumin 4.3 g/dL (3.8-4.9); Albumin/Globulin Ratio 1.54 Ratio (1.60-3.17); Alkaline Phosphatase 92 U/L (41-126); Blood Urea Nitrogen 23.4 mg/dL (9.0-27.0); Calcium 9.2 mg/dL (8.7-10.3); Carbon Dioxide 25.4 mmol/L (21.6-31.8); Chloride 103 mmol/L (96-109); Globulin 2.8 g/dL (1.6-3.3); Glucose 87 mg/dL (70-110); Sodium 140 mmol/L (135-145); Total Bilirubin 0.6 mg/dL (0.3-1.2); Total Protein 7.1 g/dL (6.2-8.2)
== END | disposition home or self-care (01) ==
LOC: LABWHC1 07:55
PROVIDERS: ATTEND Internal Medicine Infectious Disease
DX: B18.2 Chronic viral hepatitis C (principal)
CPT/HCPCS: 36415; 80053; 87522

== ENCOUNTER 2024-03-27 19:34 | Outpatient (CLI) | payer MEDICARE, OTHER ==
--- NOTE | 2024-04-04 23:49 | P.PCN ---
Date of Procedure: 03/27/24 Operative Findings: CPAP titration report History This is a 63-year-old male patient was being seen in the sleep center due to concerns of sleep apnea. The patient was recently seen in the hospital for acute non-ST segment elevation myocardial infarction. The patient was hospitalized for progressive worsening shortness of breath. He had an acute and NSTEMI and based on that he was admitted to the intensive care unit. The patient also is a known alcoholic and he went into alcohol withdrawal delirium tremens during his hospital stay. His condition gradually improved. The patient was taken off the Precedex infusion. The patient also underwent a cardiac catheterization and he was found to have significant coronary artery disease and the patient underwent a PCI of the diagonal branch with an overlapping stent, PCI of the mid LAD and his echocardiogram showed impaired LV function with an EF of around 20 to 25%. Following his discharge, the patient was given a LifeVest which she is going to wear for the next few months and have an echocardiogram repeated to decide if AICD will be of benefit for him. He is known to have alcoholism, COPD, hypertension hyperlipidemia and hepatitis C. This is in addition to his coronary artery disease and cardiomyopathy with impaired LV function. This could be alcoholic versus ischemic in nature. During his hospital stay, the patient was also noted to have apneas essentially obstructive and for that reason he was referred to the sleep center to undergo a further testing regarding possibility of SAL. Since his discharge from the hospital, the patient has not smoked since then. He is going to bed from midnight waking up 6:30 AM in the morning. No major hypersomnia or sleepiness during the day. Drinking 3 cups of coffee in the morning. No history of obesity. Body mass index is 24.3 based on all this, the patient underwent a polysomnography on 02/08/2024 and the patient was diagnosed having obstructive sleep apnea with an AHI of 25.4 and the patient is coming in today to undergo a CPAP titration study. Pertinent physical findings The height is 5 feet and 9 inches, weight is 182 with a BMI of 26.9 Technical description The patient was studied using a standard complex polysomnography protocol that included recording of the Lead II EKG, Central, occipital and frontal EEG, right and left outer canthus EOG, submental EMG, right and left anterior tibialis EMG, respiratory airflow by thermocouple and or pressure/flow transducer, respiratory efforts by abdominal and thoracic PVDF belts, oxygen saturation by cable oximetry. Position by observation synchronized the PSG. Equipment used: [employer]. Stepwise CPAP titration was done to eliminate all obstructive respiratory events Sleep characteristics The total recording duration was 419.5 minutes. The total sleep time was 331.5 minutes. The overall sleep efficiency was 79%. Latency to sleep onset was 17.5 minutes. Latency to REM sleep was 88 minutes. The sleep architecture was characterized by 0.5% stage I, 72.5% stage II, 14.8% stage III and a total of 11.9% REM sleep. The wake after sleep onset time was 70 minutes and the patient's total arousal index was 8.3 CPAP titration summary CPAP titration was started at a pressure of 5 cm of water and the pressure was gradually increased by increments of 1 cm to reach a maximum CPAP pressure of 8 cm of water. This was not successful titration. Noted the patient was studied during REM and non-REM sleep and the patient was able to assume various body position including supine and nonsupine body positions. At the very CPAP pressure is utilized, the patient had effective elimination of the obstructive respiratory events. There was some emergence of central events/central apneic events at a CPAP pressure of 8 cm of water. Nevertheless, the overall apnea- hypopnea index was quite low even with the emergence of some few central events. Oxygenation analysis The baseline oxygen saturation was 95% while awake. Lowest oxygen saturation was 89% during sleep and the minimum pulse ox during REM sleep was 92%. CPAP therapy was effective in eliminating obstructive respiratory events and oxygen desaturations Cardiac summary The average heart rate was 58 with a minimum heart rate of 53 and a maximum heart rate of 67 Periodic limb movement activity A total of 189 periodic limb movement activity with an index of 34.2. There was a total of 13 periodic limb movement activity with arousals with an index of 2.4 Sleep continuity summary The patient had a total of 46 arousals with an index of 8.3 and a respiratory arousal index was 0.4 Assessment Obstructive sleep apnea, moderate in severity with an AHI of 25.4, the patient had a successful CPAP titration. There was emergence of few central apneas at a time with CPAP pressure of 8 cm of water. Nevertheless, though central apneas were few and they were not associated with any significant nocturnal oxygen saturations High arousal index and sleep fragmentation, improved with CPAP therapy [place] score is at 4. History of alcoholism with a previous history of delirium tremens occurred during a recent hospitalization, and the patient is currently not drinking alcohol. Coronary artery disease , post acute ST segment elevation myocardial infarction, postcardiac catheterization, CAD as described above including 40% ostial LAD, 99% ostial diagonal 1, 60-70% mid LAD stenosis, 50% circumflex, 100% mid RCA stenosis S/p PCI diagonal 1 with overlapping 2.0 x 26 mm and 2.0 x 18 mm Elcho ANÍBAL, PCI proximal to mid LAD with 2.75 x 38mm Xience ANÍBAL, postdilated with a 3.0 noncompliant balloon CHF with elevated left sided filling pressures. has impaired LV function with an ejection fraction of 25 to 30%. Rule out underlying ischemic versus alcoholic cardiomyopathy. Echocardiogram was completed and the patient has impaired ejection fraction along with segmental wall motion abnormalities. Ejection fraction is in order of 20 to 25%. Alcoholism the patient drinks around 18 beers on a daily basis. Chronic obstructive pulmonary disease, stable Chronic ongoing tobacco dependence Hyperlipidemia History of hypertension History of hepatitis C Plan Initiate CPAP therapy at a pressure of 8 cm of water with a C-Flex of 3 Will provide the patient AirFit N20 large size nasal mask Few central apneas emerge during the study but will be monitored at a later stage upon subsequent compliance checks and there was no evidence of any Jaden-Salomon breathing. No evidence of any central apneas. Follow-up with cardiology Follow-up with the sleep center in 30 to 90 days to assess clinical response and compliancy.
== END 2024-03-28 06:00 | disposition home or self-care (01) ==
LOC: 3 N SLEEP 19:34
PROVIDERS: ATTEND Internal Medicine Critical Care Medicine
DX: G47.33 Obstructive sleep apnea (adult) (pediatric) (principal); I11.0 Hypertensive heart disease with heart failure; I21.3 ST elevation (STEMI) myocardial infarction of unspecified site; I50.9 Heart failure, unspecified; I25.10 Atherosclerotic heart disease of native coronary artery without angina pectoris; J44.9 Chronic obstructive pulmonary disease, unspecified; E78.5 Hyperlipidemia, unspecified; F10.90 Alcohol use, unspecified, uncomplicated; F17.210 Nicotine dependence, cigarettes, uncomplicated; Z79.02 Long term (current) use of antithrombotics/antiplatelets; Z95.5 Presence of coronary angioplasty implant and graft; Z86.19 Personal history of other infectious and parasitic diseases
CPT/HCPCS: 95811

== ENCOUNTER → 2024-07-22 | Outpatient (CLI) | payer MEDICARE, OTHER ==
[2024-07-22 18:51] LABS: ALT 17 U/L (10-49); AST 26 U/L (14-35); Albumin 4.4 g/dL (3.8-4.9); Albumin/Globulin Ratio 1.57 Ratio (1.60-3.17); Alkaline Phosphatase 90 U/L (41-126); BUN/Creat Ratio 13.36 Ratio (12.00-20.00); Blood Urea Nitrogen 14.7 mg/dL (9.0-27.0); Calcium 9.5 mg/dL (8.7-10.3); Carbon Dioxide 27.5 mmol/L (21.6-31.8); Chloride 105 mmol/L (96-109); Globulin 2.8 g/dL (1.6-3.3); Glucose 91 mg/dL (70-110); Potassium 4.7 mmol/L (3.5-5.5); Sodium 145 mmol/L (135-145); Total Bilirubin 0.7 mg/dL (0.3-1.2); Total Protein 7.2 g/dL (6.2-8.2)
== END | disposition home or self-care (01) ==
LOC: LABWHC1 12:38
PROVIDERS: ATTEND Internal Medicine Infectious Disease
DX: B18.2 Chronic viral hepatitis C (principal)
CPT/HCPCS: 36415; 80053; 87522